=== PATIENT | male | born 1955 | race Hispanic/Latino ===

== ENCOUNTER → 2017-12-19 10:50 | Outpatient (CLI) | payer MEDICARE, MEDICAID, SELFPAY ==
--- NOTE | 2017-12-19 | DI.CT.S_ITS ---
PROCEDURE: CT CERVICAL SPINE WO CON INDICATIONS: CERVICALGIA TECHNIQUE: Noncontrast 3 mm thick sections acquired from the skull base to the T4 level. Sagittal and coronal reformats were then constructed. For radiation dose reduction, the following was used: automated exposure control, adjustment of mA and/or kV according to patient size. COMPARISON: [facility], CT, C-SPINE WITHOUT CONTRAST, 02/10/2008, 0:42. FINDINGS: Image quality: Excellent. Bones: Patient is status post interval anterior fusion from C4-C7 levels with intervertebral spacer placement. There is near complete bony fusion from C4-C7 levels. Straightening of normal cervical lordosis is seen. No acute compression fracture or traumatic spondylolisthesis. Minimal anterolisthesis of C7 on T1 is noted. Degenerative endplate changes are noted at C3-4 and C7-T1 levels. There is mild broad-based more right sided disc bulge at C7-T1 level causing mild central canal stenosis, no significant neural foramina narrowing. No significant canal stenosis is seen in rest of cervical spine. Bilateral facet hypertrophic changes are noted at C4-5 through C7-T1 levels causing right worse than left bilateral neural foramina narrowing at C5-6 and C6-7 levels. Soft tissues: Prevertebral soft tissues are normal in thickness. No paravertebral hematomas. No apical pneumothoraces. Right apical scarring is again seen. IMPRESSION: 1. Patient is status post anterior fusion of C4-C7 with near-complete bony fusion at these levels. Straightening of normal cervical lordosis. No acute compression fracture or traumatic spondylolisthesis. No gross hardware complication. 2. Degenerative disc disease at C3-4 and C7-T1 levels with suggestion of mild right-sided neural foraminal narrowing at C7-T1 level. 3. Bilateral facet hypertrophic changes at C4-5 through C7-T1 levels are seen with right worse than left bilateral neural foramina narrowing at C5-6 and C6-7 levels. Dictated by: Daljit Moran M.D. on 12/19/2017 at 17:01 Approved by: Daljit Moran M.D. on 12/19/2017 at 17:05
== END ==
PROVIDERS: Family Provider Family Medicine; PCP Family Medicine; Visit Provider Orthopaedic Surgery Orthopaedic Surgery of the Spine
DX: M50.31 Other cervical disc degeneration, high cervical region (principal); M48.02 Spinal stenosis, cervical region; Z98.1 Arthrodesis status
CPT/HCPCS: 72125

== ENCOUNTER 2018-02-04 16:52 | Emergency (ER) | payer MEDICARE, MEDICAID, SELFPAY ==
[2018-02-04 17:20] VITALS: BP 121/61; PULSE 80; RESP 20; TEMP 37.1; O2SAT 95
--- NOTE | 2018-02-04 17:32 | DI.RAD.S_ITS ---
PROCEDURE: XR CHEST 2V INDICATIONS: chest pain TECHNIQUE: 2 views of the chest were acquired. COMPARISON: [facility], CR, XR CHEST 1 VIEW, 02/01/2018, 11:01. FINDINGS: Surgical changes and devices: None. Lungs and pleura: No pleural effusions or pneumothorax. Lungs are clear but enlarged. Mediastinum: Mediastinal contours are normal. Heart size is normal. Bones and chest wall: No suspicious bony abnormalities. Soft tissues appear unremarkable. IMPRESSION: Normal for age except increased inspiratory volume and flattening of the diaphragms suggestive of COPD. Source of current symptoms is not seen. Dictated by: Giovanny Ceja M.D. on 02/04/2018 at 18:51 Approved by: Giovanny Ceja M.D. on 02/04/2018 at 18:51
[2018-02-04 19:04] LABS: Add Manual Diff / Slide Review NO; Eosinophils Percent Auto 3.6 % (2-4); Hematocrit 42.3 % (41-53); Hemoglobin 14.4 g/dL (13.5-17.5); Mean Corpuscular Hemoglobin 34.6 PG (26-34); Mean Corpuscular Volume 101.6 fL (80-100); Monocytes Percent Auto 8.3 % (3-14); Neutrophils Absolute Auto 4000 /uL (3000-5900); Neutrophils Percent Auto 48.1 % (50-75); Platelet Count 299 X10^3/uL (150-400); Red Blood Cell Count 4.17 X10^6/uL (4.5-5.9); Red Cell Distribution Width 14.8 % (11.6-14.8); White Blood Cell Count 8.4 X10^3/uL (4.5-11.0)
[2018-02-04 19:12] LABS: Alanine Aminotransferase 34 IU/L (21-72); Albumin Globulin Ratio 1.4 (1.0-2.8); Alkaline Phosphatase 72 U/L (38-126); Aspartate Aminotransferase 38 IU/L (17-59); BUN Creatinine Ratio 15.5 (6-22); Bilirubin Total 0.4 mg/dL (0.2-1.3); Blood Urea Nitrogen 17 mg/dL (9-20); Calcium 8.8 mg/dL (8.4-10.2); Carbon Dioxide 27 mmol/L (22-32); Chloride 98 mmol/L (98-107); Creatine Kinase 154 U/L (55-170); Estimated Glomerular Filt Rate > 60.0 mL/min (>60); Globulin 2.9 g/dL (1.7-4.1); Glucose 92 mg/dL (80-110); HEMOLYSIS < 15 (0-50); Lipase 206 U/L (23-300); Potassium 4.2 mmol/L (3.4-5.1); Sodium 139 mmol/L (137-145); Total Protein 6.9 g/dL (6.3-8.2)
[2018-02-04 19:23] LABS: Troponin I 0.015 ng/mL (0.01-0.034)
[2018-02-04 19:27] LABS: CKMB % Relative Index 0.4 % (1.5-5.0); Creatine Kinase MB 0.64 ng/mL (<2.37)
--- NOTE | 2018-02-04 19:49 | ED.CHESTPAIN ---
HPI - Chest Pain General Chief Complaint: Chest Pain Stated Complaint: HAD ALCOHOL CHEST PAIN Time Seen by Provider: 02/04/18 19:49 Related Data Home Medications Medication Instructions Recorded Confirmed hydrocodone-acetaminophen tab PO Q6HP PRN #0 11/17/16 lisinopril 10 mg PO QDAY #0 11/17/16 Previous Rx's Medication Instructions Recorded hydrocodone-acetaminophen [[place]] 1 tab PO Q6H PRN #10 tab 11/17/16 ciprofloxacin HCl [Cipro] 500 mg PO BID #20 tab 02/01/17 ketorolac 10 mg PO Q8HP PRN #8 tab 02/01/17 phenazopyridine [Pyridium] 200 mg PO TID #6 tab 02/01/17 Allergies Allergy/AdvReac Type Severity Reaction Status Date / Time acetaminophen [ACETAMINOPHEN] Allergy Mild ITCHING Unverified 07/20/17 12:11 lisinopril [LISINOPRIL] Allergy Unknown Unverified 07/20/17 12:11 cortisone [CORTISONE] AdvReac Intermediate MADE ME Unverified 07/20/17 12:11 VERY HOT AND MADE ME NUTS codeine [CODEINE] AdvReac Mild ITCHY AND Unverified 07/20/17 12:11 DIFFICULTY SLEEPING PFSH Surgical History History of spinal fusion (06/11/14) Status post discectomy (06/11/14) Exam Initial Vital Signs Initial Vital Signs: Vital Signs Temperature 98.7 F 02/04/18 17:20 Pulse Rate 80 02/04/18 17:20 Respiratory Rate 20 02/04/18 17:20 Blood Pressure 121/61 02/04/18 17:20 Pulse Oximetry 95 02/04/18 17:20 Course Orders Ordered: ED Orders 02/04/18 17:20 EKG-12 Lead Stat 02/04/18 17:32 Chest [XR chest 2V] Stat 02/04/18 18:32 Complete Blood Count AUTO DIFF Stat Comprehensive Metabolic Panel Stat Lipase Stat Troponin & CK Cardiac Panel Stat Vital Signs - 8 hr 02/04/18 17:20 Temperature 98.7 F Pulse Rate 80 Respiratory Rate 20 Blood Pressure 121/61 Pulse Oximetry 95 MDM - Chest Pain Lab Data Result diagrams: 02/04/18 18:32 02/04/18 18:32 Lab Results 10/27/18 10/27/18 Range/Units 18:32 18:32 WBC 8.4 (4.5-11.0) X10^3/uL RBC 4.17 L (4.5-5.9) X10^6/uL Hgb 14.4 (13.5-17.5) g/dL Hct 42.3 (41-53) % MCV 101.6 H (80-100) fL MCH 34.6 H (26-34) PG MCHC 34.0 (30-36) % RDW 14.8 (11.6-14.8) % Plt Count 299 (150-400) X10^3/uL Neut % (Auto) 48.1 L (50-75) % Lymph % (Auto) 39.0 (25-40) % Mccormick % (Auto) 8.3 (3-14) % Eos % (Auto) 3.6 (2-4) % Baso % (Auto) 1.0 (0-2) % Neut # (Auto) 4000 (2196-8877) /uL Sodium 139 (137-145) mmol/L Potassium 4.2 (3.4-5.1) mmol/L Chloride 98 (98-107) mmol/L Carbon Dioxide 27 (22-32) mmol/L BUN 17 (9-20) mg/dL Creatinine 1.10 (0.66-1.25) mg/dL Estimated GFR > 60.0 (>60) mL/min BUN/Creatinine Ratio 15.5 (6-22) Glucose 92 (80-110) mg/dL Calcium 8.8 (8.4-10.2) mg/dL Total Bilirubin 0.4 (0.2-1.3) mg/dL AST 38 (17-59) IU/L ALT 34 (21-72) IU/L Alkaline Phosphatase 72 (38-126) U/L Total Creatine Kinase 154 (55-170) U/L CK-MB (CK-2) 0.64 (<2.37) ng/mL CK-MB (CK-2) Rel Index 0.4 L (1.5-5.0) % Troponin I 0.015 (0.01-0.034) ng/mL Total Protein 6.9 (6.3-8.2) g/dL Albumin 4.0 (3.5-5.0) g/dL Globulin 2.9 (1.7-4.1) g/dL Albumin/Globulin Ratio 1.4 (1.0-2.8) Lipase 206 (23-300) U/L Discharge Plan Departure Prescriptions: No Action hydrocodone-acetaminophen [[place]] 5 MG/325 MG tablet 1 tab PO Q6H PRNQty: 10 RF: 0 lisinopril 10 MG tablet 10 mg PO QDAY Qty: 0 RF: 0 hydrocodone-acetaminophen 10 MG/325 MG tablet PO Q6HP PRNQty: 0 RF: 0 ciprofloxacin HCl [Cipro] 500 MG tablet 500 mg PO BID Qty: 20 RF: 0 phenazopyridine [Pyridium] 200 MG tablet 200 mg PO TID Qty: 6 RF: 0 ketorolac 10 MG tablet 10 mg PO Q8HP PRNQty: 8 RF: 0
== END 2018-02-04 19:50 | disposition left against medical advice (07) ==
PROVIDERS: Emergency Medicine; Emergency Provider Nurse Practitioner Family; Family Provider Family Medicine; PCP Family Medicine
DX: R07.89 Other chest pain (principal)
CPT/HCPCS: 36415; 71046; 80053; 82550; 82553; 83690; 84484; 85025; 93005; 93010; 99281; 99282

== ENCOUNTER 2018-02-06 21:20 | Emergency (ER) | payer MEDICARE, MEDICAID, SELFPAY ==
[2018-02-06 21:20] VITALS: BP 177/82; PULSE 60; RESP 18; TEMP 36.7; O2SAT 92
--- NOTE | 2018-02-06 21:24 | DI.CT.S_ITS ---
PROCEDURE: CT HEAD/BRAIN WO CON INDICATIONS: found unresponsive TECHNIQUE: Noncontrast 4.5 mm thick angled axial sections acquired from the foramen magnum to the vertex, with coronal and sagittal reformats. For radiation dose reduction, the following was used: automated exposure control, adjustment of mA and/or kV according to patient size. COMPARISON: None. FINDINGS: Image quality: Evaluation limited by motion artifact. CSF spaces: Basal cisterns are patent. No extra-axial fluid collections. Ventricles are normal in size and shape. Brain: No definite intracranial hemorrhage, mass, mass effect. Blankenship-white matter interface is grossly preserved. Skull and face: Calvarium and visualized facial bones are intact, without suspicious lesions. Sinuses: Visualized sinuses and mastoids are clear. IMPRESSION: 1. No definite acute intracranial abnormality with evaluation limited by motion artifact. Dictated by: Chepe Mcgee M.D. on 02/06/2018 at 22:07 Approved by: Chpee Mcgee M.D. on 02/06/2018 at 22:08
[2018-02-06 21:41] LABS: Add Manual Diff / Slide Review NO; Basophils Percent Auto 0.9 % (0-2); Eosinophils Percent Auto 4.7 % (2-4); Hematocrit 45.2 % (41-53); Hemoglobin 15.1 g/dL (13.5-17.5); Lymphocytes Percent Auto 45.5 % (25-40); Mean Corpuscular HGB Conc 33.5 % (30-36); Mean Corpuscular Hemoglobin 34.7 PG (26-34); Mean Corpuscular Volume 103.7 fL (80-100); Monocytes Percent Auto 4.6 % (3-14); Neutrophils Absolute Auto 4400 /uL (3000-5900); Neutrophils Percent Auto 44.3 % (50-75); Platelet Count 283 X10^3/uL (150-400); Red Blood Cell Count 4.36 X10^6/uL (4.5-5.9); Red Cell Distribution Width 15.4 % (11.6-14.8)
[2018-02-06 22:04] LABS: Acetaminophen < 10 ug/mL (10-30); Alanine Aminotransferase 34 IU/L (21-72); Albumin 4.1 g/dL (3.5-5.0); Albumin Globulin Ratio 1.3 (1.0-2.8); Alkaline Phosphatase 58 U/L (38-126); Aspartate Aminotransferase 70 IU/L (17-59); Bilirubin Total 0.6 mg/dL (0.2-1.3); Blood Urea Nitrogen 9 mg/dL (9-20); Calcium 8.2 mg/dL (8.4-10.2); Carbon Dioxide 25 mmol/L (22-32); Chloride 103 mmol/L (98-107); Creatine Kinase 216 U/L (55-170); Estimated Glomerular Filt Rate > 60.0 mL/min (>60); Globulin 3.1 g/dL (1.7-4.1); Glucose 105 mg/dL (80-110); HEMOLYSIS 46 (0-50); Potassium 4.5 mmol/L (3.4-5.1); Sodium 144 mmol/L (137-145); Total Protein 7.2 g/dL (6.3-8.2)
[2018-02-06 22:05] LABS: Salicylate < 1.0 mg/dL (<20)
[2018-02-06] MEDS: SODIUM CHLORIDE 0.9% 1,000 ML 150 ML IV (22:09)
[2018-02-06] MEDS: LORazepam 2 MG/ML SYRINGE 1 MG IV ×2 (22:10)
[2018-02-06] MEDS: diphenhydrAMINE 50 MG/ML VIAL IV (22:10)
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
[2018-02-06 22:12] LABS: Ethanol (ETOH) 348 mg/dL
[2018-02-06 22:15] LABS: Troponin I 0.017 ng/mL (0.01-0.034)
[2018-02-06 22:19] LABS: Urine Amphetamines Negative (Negative); Urine Barbiturates Negative (Negative); Urine Benzodiazepines Negative (Negative); Urine Cocaine Negative (Negative); Urine MDMA Negative (Negative); Urine Methadone Negative (Negative); Urine Methamphetamines Negative (Negative); Urine Morphine/Opi cutoff 2000 Negative (Negative); Urine Phencyclidine Negative (Negative); Urine Tetrahydrocannabinol Negative (Negative)
[2018-02-06 22:19] LABS: CKMB % Relative Index 0.6 % (1.5-5.0); Creatine Kinase MB 1.27 ng/mL (<2.37)
[2018-02-06 22:20] LABS: Urine Oxycodone Negative (Negative); Urine Tricyclic Antidepressant Negative (Negative)
[2018-02-06 22:44] VITALS: BP 155/79; PULSE 63; RESP 14; O2SAT 98
[2018-02-06 22:44] LABS: Lactate (Lactic Acid) 2.2 mmol/L (0.7-2.1)
[2018-02-06 23:30] VITALS: BP 139/66; PULSE 73; RESP 17; O2SAT 96
--- NOTE | 2018-02-06 23:40 | PC.NURSE ---
patient got out of bed and
[2018-02-06] MEDS: HALOPERIDOL 5 MG/ML VIAL 2 MG IV (23:47)
--- NOTE | 2018-02-06 23:47 | PC.NURSE ---
patient up and out of bed. not listening and cooperating. patient cleaned up from urinating on himself. TORO Gavin and Chris assisted the patient back to bed and patient given warm blankets. Dr. Heart aware.
[2018-02-07] VITALS (12 sets, daily range): BP systolic 109–130; BP diastolic 57–72; PULSE 59–74; RESP 10–17; TEMP 36.3; O2SAT 94–99
[2018-02-07 02:30] LABS: Reflexed Lactate in 2 Hours Y
[2018-02-07 02:59] LABS: Lactate 2HR (Lactic Acid Rflx) 1.8 mmol/L (0.7-2.1)
--- NOTE | 2018-02-07 03:43 | ED_ITS ---
HPI - Altered Mental Status <Etelvina Heart DO - Last Filed: 02/07/18 18:36> General Chief Complaint: Altered Mental Status Stated Complaint: ETOH Time Seen by Provider: 02/06/18 21:20 Source: patient, EMS and old records reviewed Mode of arrival: EMS Limitations: altered mental status History of Present Illness HPI narrative: Patient is a 62-year-old male who brought in by EMS for decreased responsiveness. He apparently started drinking alcohol very early in the morning he is unknown alcoholic. His he also ran out of his pain medications. Apparently they were initially thinking about intubating however he did get Narcan became more awake. Follows commands. Initially said he thought of killing himself although getting a true history from him is difficult. Now stating that he just wants to leave. MD complaint: decreased responsiveness and intoxication Related Data Home Medications Medication Instructions Recorded Confirmed lisinopril 1 tab PO DAILY 02/07/18 02/07/18 Allergies Allergy/AdvReac Type Severity Reaction Status Date / Time acetaminophen [ACETAMINOPHEN] Allergy Mild ITCHING Unverified 07/20/17 12:11 lisinopril [LISINOPRIL] Allergy Unknown Unverified 07/20/17 12:11 cortisone [CORTISONE] AdvReac Intermediate MADE ME Unverified 07/20/17 12:11 VERY HOT AND MADE ME NUTS codeine [CODEINE] AdvReac Mild ITCHY AND Unverified 07/20/17 12:11 DIFFICULTY SLEEPING Review of Systems <Etelvina Heart DO - Last Filed: 02/07/18 18:36> Review of Systems other ( intoxicated) Constitutional Denies body ache(s) and Denies fever(s) ENT Ears, Nose, Mouth, and Throat: Denies vertigo and Denies dizziness Cardiovascular Reports chest pain, Denies leg edema and Denies dyspnea on exertion Respiratory Denies cough and Denies dyspnea on exertion Gastrointestinal Gastrointestinal: Denies abdominal pain, Denies diarrhea and Denies nausea Musculoskeletal Denies back pain and Denies stiffness Integumentary/Breasts Reports wounds (on head- abrasion) Neurologic Denies vertigo and Denies dizziness Exam <Etelvina Heart DO - Last Filed: 02/07/18 18:36> Initial Vital Signs Initial Vital Signs: Vital Signs Temperature 98.1 F 02/06/18 21:20 Pulse Rate 60 02/06/18 21:20 Respiratory Rate 18 02/06/18 21:20 Blood Pressure 177/82 H 02/06/18 21:20 Pulse Oximetry 92 02/06/18 21:20 Const General: cooperative Nutritional Appearance: thin Orientation: alert and awake [facility] Head: abrasion (Left temporal no laceration) Eyes General: appearance normal, both eyes and all related structures Pupils: PERRL EOM: EOM intact bilaterally Neck Neck: normal visual inspection, full ROM, no meningeal signs and trachea midline Chest Chest: normal inspection of the chest, normal palpation of entire chest wall and No tenderness Resp Effort & Inspection: normal respiratory effort Auscultation: clear to auscultation bilaterally, no rales, no rhonchi and no wheezes Cardio Rate: regular rate Rhythm: regular rhythm Heart Sounds: S1 normal and S2 normal GI Inspection: normal to inspection Palpation: soft, No firm, No guarding and No tender Skin General: no rashes or lesions noted Trauma: abrasion (left temporal) Neuro General: alert and awake Cranial Nerves: CN's II-XI intact bilaterally Extrem General: normal to inspection Right upper extremity: normal to inspection Left upper extremity: normal to inspection Right lower extremity: normal to inspection Left lower extremity: normal to inspection <DO Kika Avalos Last Filed: 02/07/18 09:55> Initial Vital Signs Initial Vital Signs: Vital Signs Temperature 98.1 F 02/06/18 21:20 Pulse Rate 60 02/06/18 21:20 Respiratory Rate 18 02/06/18 21:20 Blood Pressure 177/82 H 02/06/18 21:20 Pulse Oximetry 92 02/06/18 21:20 Scores <DO Kika Wilks Last Filed: 02/07/18 18:36> GCS Amelia coma scale eye opening: Spontaneous Amelia coma scale verbal response: Orientated Amelia coma scale motor response: Obey commands Perry coma scale total score: 15 Course <DO Kika Wilks Last Filed: 02/07/18 18:36> Orders Ordered: Discontinued Medications Diphenhydramine HCl (Benadryl) 50 mg IV NOW ONE Stop: 02/06/18 22:01 Last Admin: 02/06/18 22:10 Dose: 50 mg Haloperidol (Haldol) 2 mg IV NOW ONE Stop: 02/06/18 22:02 Last Admin: 02/06/18 23:47 Dose: 2 mg Sodium Chloride (Normal Saline 0.9%) 1,000 mls @ 150 mls/hr IV CONT CARMELA Last Infusion: 02/07/18 05:05 Dose: 0 mls/hr Admin: 02/06/18 22:09 Dose: 150 mls/hr Lorazepam (Ativan) 1 mg IV NOW ONE Stop: 02/06/18 22:01 Last Admin: 02/06/18 22:10 Dose: 1 mg Lorazepam (Ativan) 1 mg IV NOW ONE Stop: 02/06/18 22:09 Last Admin: 02/06/18 22:10 Dose: 1 mg Vital Signs - 8 hr 02/07/18 02:00 02/07/18 03:21 02/07/18 04:30 Pulse Rate 64 65 65 Respiratory Rate 12 12 Blood Pressure [Right Arm] 109/66 130/61 130/66 Pulse Oximetry 99 99 02/07/18 05:00 02/07/18 06:04 02/07/18 06:50 Pulse Rate 64 59 L 61 Respiratory Rate 12 14 12 Blood Pressure [Right Arm] 122/64 123/65 124/72 Pulse Oximetry 99 94 02/07/18 07:33 02/07/18 08:11 Pulse Rate 62 74 Respiratory Rate 10 L 14 Blood Pressure [Right Arm] 118/65 121/64 Pulse Oximetry 95 97 <Yuval Henderson DO - Last Filed: 02/07/18 09:55> Orders Ordered: Discontinued Medications Diphenhydramine HCl (Benadryl) 50 mg IV NOW ONE Stop: 02/06/18 22:01 Last Admin: 02/06/18 22:10 Dose: 50 mg Haloperidol (Haldol) 2 mg IV NOW ONE Stop: 02/06/18 22:02 Last Admin: 02/06/18 23:47 Dose: 2 mg Sodium Chloride (Normal Saline 0.9%) 1,000 mls @ 150 mls/hr IV CONT CARMELA Last Infusion: 02/07/18 05:05 Dose: 0 mls/hr Admin: 02/06/18 22:09 Dose: 150 mls/hr Lorazepam (Ativan) 1 mg IV NOW ONE Stop: 02/06/18 22:01 Last Admin: 02/06/18 22:10 Dose: 1 mg Lorazepam (Ativan) 1 mg IV NOW ONE Stop: 02/06/18 22:09 Last Admin: 02/06/18 22:10 Dose: 1 mg Vital Signs - 8 hr 02/07/18 02:00 02/07/18 03:21 02/07/18 04:30 Pulse Rate 64 65 65 Respiratory Rate 12 12 Blood Pressure [Right Arm] 109/66 130/61 130/66 Pulse Oximetry 99 99 02/07/18 05:00 02/07/18 06:04 02/07/18 06:50 Pulse Rate 64 59 L 61 Respiratory Rate 12 14 12 Blood Pressure [Right Arm] 122/64 123/65 124/72 Pulse Oximetry 99 94 02/07/18 07:33 02/07/18 08:11 Pulse Rate 62 74 Respiratory Rate 10 L 14 Blood Pressure [Right Arm] 118/65 121/64 Pulse Oximetry 95 97 MDM - Altered Mental Status <Etelvina Heart DO - Last Filed: 02/07/18 18:36> Lab Data Attestation: I reviewed the patient's lab results. Result diagrams: 02/06/18 21:05 02/06/18 21:05 Lab Results 02/06/18 02/06/18 02/06/18 Range/Units 21:05 21:05 21:50 WBC 10.0 (4.5-11.0) X10^3/uL RBC 4.36 L (4.5-5.9) X10^6/uL Hgb 15.1 (13.5-17.5) g/dL Hct 45.2 (41-53) % MCV 103.7 H (80-100) fL MCH 34.7 H (26-34) PG MCHC 33.5 (30-36) % RDW 15.4 H (11.6-14.8) % Plt Count 283 (150-400) X10^3/uL Neut % (Auto) 44.3 L (50-75) % Lymph % (Auto) 45.5 H (25-40) % Craven % (Auto) 4.6 (3-14) % Eos % (Auto) 4.7 H (2-4) % Baso % (Auto) 0.9 (0-2) % Neut # (Auto) 4400 (4781-6547) /uL Sodium 144 (137-145) mmol/L Potassium 4.5 (3.4-5.1) mmol/L Chloride 103 (98-107) mmol/L Carbon Dioxide 25 (22-32) mmol/L BUN 9 (9-20) mg/dL Creatinine 0.90 (0.66-1.25) mg/dL Estimated GFR > 60.0 (>60) mL/min BUN/Creatinine Ratio 10.0 (6-22) Glucose 105 (80-110) mg/dL Lactate (0.7-2.1) mmol/L Calcium 8.2 L (8.4-10.2) mg/dL Total Bilirubin 0.6 (0.2-1.3) mg/dL AST 70 H (17-59) IU/L ALT 34 (21-72) IU/L Alkaline Phosphatase 58 (38-126) U/L Total Creatine Kinase 216 H (55-170) U/L CK-MB (CK-2) 1.27 (<2.37) ng/mL CK-MB (CK-2) Rel Index 0.6 L (1.5-5.0) % Troponin I 0.017 (0.01-0.034) ng/mL Total Protein 7.2 (6.3-8.2) g/dL Albumin 4.1 (3.5-5.0) g/dL Globulin 3.1 (1.7-4.1) g/dL Albumin/Globulin Ratio 1.3 (1.0-2.8) Salicylates < 1.0 (<20) mg/dL Urine Opiates Screen Negative (Negative) Ur Oxycodone Screen Negative (Negative) Urine Methadone Screen Negative (Negative) Acetaminophen < 10 L (10-30) ug/mL Ur Barbiturates Screen Negative (Negative) U Tricyclic Antidepress Negative (Negative) Ur Phencyclidine Scrn Negative (Negative) Ur Amphetamines Screen Negative (Negative) U Methamphetamines Scrn Negative (Negative) Ur MDMA Scrn (Ecstasy) Negative (Negative) U Benzodiazepines Scrn Negative (Negative) Urine Cocaine Screen Negative (Negative) U Marijuana (THC) Screen Negative (Negative) Ethyl Alcohol 348 mg/dL 02/06/18 02/07/18 Range/Units 21:54 02:42 WBC (4.5-11.0) X10^3/uL RBC (4.5-5.9) X10^6/uL Hgb (13.5-17.5) g/dL Hct (41-53) % MCV (80-100) fL MCH (26-34) PG MCHC (30-36) % RDW (11.6-14.8) % Plt Count (150-400) X10^3/uL Neut % (Auto) (50-75) % Lymph % (Auto) (25-40) % Craven % (Auto) (3-14) % Eos % (Auto) (2-4) % Baso % (Auto) (0-2) % Neut # (Auto) (0150-9363) /uL Sodium (137-145) mmol/L Potassium (3.4-5.1) mmol/L Chloride (98-107) mmol/L Carbon Dioxide (22-32) mmol/L BUN (9-20) mg/dL Creatinine (0.66-1.25) mg/dL Estimated GFR (>60) mL/min BUN/Creatinine Ratio (6-22) Glucose (80-110) mg/dL Lactate 2.2 H 1.8 (0.7-2.1) mmol/L Calcium (8.4-10.2) mg/dL Total Bilirubin (0.2-1.3) mg/dL AST (17-59) IU/L ALT (21-72) IU/L Alkaline Phosphatase (38-126) U/L Total Creatine Kinase (55-170) U/L CK-MB (CK-2) (<2.37) ng/mL CK-MB (CK-2) Rel Index (1.5-5.0) % Troponin I (0.01-0.034) ng/mL Total Protein (6.3-8.2) g/dL Albumin (3.5-5.0) g/dL Globulin (1.7-4.1) g/dL Albumin/Globulin Ratio (1.0-2.8) Salicylates (<20) mg/dL Urine Opiates Screen (Negative) Ur Oxycodone Screen (Negative) Urine Methadone Screen (Negative) Acetaminophen (10-30) ug/mL Ur Barbiturates Screen (Negative) U Tricyclic Antidepress (Negative) Ur Phencyclidine Scrn (Negative) Ur Amphetamines Screen (Negative) U Methamphetamines Scrn (Negative) Ur MDMA Scrn (Ecstasy) (Negative) U Benzodiazepines Scrn (Negative) Urine Cocaine Screen (Negative) U Marijuana (THC) Screen (Negative) Ethyl Alcohol mg/dL Imaging Data CT scan - head: Radiologist's impression: PROCEDURE: CT HEAD/BRAIN WO CON INDICATIONS: found unresponsive TECHNIQUE: Noncontrast 4.5 mm thick angled axial sections acquired from the foramen magnum to the vertex, with coronal and sagittal reformats. For radiation dose reduction, the following was used: automated exposure control, adjustment of mA and/or kV according to patient size. COMPARISON: None. FINDINGS: Image quality: Evaluation limited by motion artifact. CSF spaces: Basal cisterns are patent. No extra-axial fluid collections. Ventricles are normal in size and shape. Brain: No definite intracranial hemorrhage, mass, mass effect. Blankenship-white matter interface is grossly preserved. Skull and face: Calvarium and visualized facial bones are intact, without suspicious lesions. Sinuses: Visualized sinuses and mastoids are clear. IMPRESSION: 1. No definite acute intracranial abnormality with evaluation limited by motion artifact. Dictated by: Chepe Mcgee M.D. on 02/06/2018 at 22:07 ECG Data Attestation: I personally reviewed and interpreted this ECG as follows: Prior ECG tracings: available for review Interpretation: Sinus rhythm rate 60 ND interval 156, QRS 92, QTC 445 a similar to previous EKGs no acute ischemia or ST segment changes MDM Narrative Medical decision making narrative: Patient initially became quite agitated wanting to leave. He is not had his anxiety medicine a home gave him Ativan and Benadryl to help calm him down. Patient then later given Haldol at 11:30 a.m.. 4:00 a.m.. patient is sleeping comfortable patient is sleeping and resting has been fine since Haldol. Recommend repeat evaluation when more awake. Patient signed out to Dr. Henderson for further evaluation and medical decision making. anticipate DC home <Yuval Henderson, DO - Last Filed: 02/07/18 09:55> Lab Data Attestation: I reviewed the patient's lab results. Lab Results 02/06/18 02/06/18 02/06/18 Range/Units 21:05 21:05 21:50 WBC 10.0 (4.5-11.0) X10^3/uL RBC 4.36 L (4.5-5.9) X10^6/uL Hgb 15.1 (13.5-17.5) g/dL Hct 45.2 (41-53) % MCV 103.7 H (80-100) fL MCH 34.7 H (26-34) PG MCHC 33.5 (30-36) % RDW 15.4 H (11.6-14.8) % Plt Count 283 (150-400) X10^3/uL Neut % (Auto) 44.3 L (50-75) % Lymph % (Auto) 45.5 H (25-40) % Craven % (Auto) 4.6 (3-14) % Eos % (Auto) 4.7 H (2-4) % Baso % (Auto) 0.9 (0-2) % Neut # (Auto) 4400 (9722-1103) /uL Sodium 144 (137-145) mmol/L Potassium 4.5 (3.4-5.1) mmol/L Chloride 103 (98-107) mmol/L Carbon Dioxide 25 (22-32) mmol/L BUN 9 (9-20) mg/dL Creatinine 0.90 (0.66-1.25) mg/dL Estimated GFR > 60.0 (>60) mL/min BUN/Creatinine Ratio 10.0 (6-22) Glucose 105 (80-110) mg/dL Lactate (0.7-2.1) mmol/L Calcium 8.2 L (8.4-10.2) mg/dL Total Bilirubin 0.6 (0.2-1.3) mg/dL AST 70 H (17-59) IU/L ALT 34 (21-72) IU/L Alkaline Phosphatase 58 (38-126) U/L Total Creatine Kinase 216 H (55-170) U/L CK-MB (CK-2) 1.27 (<2.37) ng/mL CK-MB (CK-2) Rel Index 0.6 L (1.5-5.0) % Troponin I 0.017 (0.01-0.034) ng/mL Total Protein 7.2 (6.3-8.2) g/dL Albumin 4.1 (3.5-5.0) g/dL Globulin 3.1 (1.7-4.1) g/dL Albumin/Globulin Ratio 1.3 (1.0-2.8) Salicylates < 1.0 (<20) mg/dL Urine Opiates Screen Negative (Negative) Ur Oxycodone Screen Negative (Negative) Urine Methadone Screen Negative (Negative) Acetaminophen < 10 L (10-30) ug/mL Ur Barbiturates Screen Negative (Negative) U Tricyclic Antidepress Negative (Negative) Ur Phencyclidine Scrn Negative (Negative) Ur Amphetamines Screen Negative (Negative) U Methamphetamines Scrn Negative (Negative) Ur MDMA Scrn (Ecstasy) Negative (Negative) U Benzodiazepines Scrn Negative (Negative) Urine Cocaine Screen Negative (Negative) U Marijuana (THC) Screen Negative (Negative) Ethyl Alcohol 348 mg/dL 02/06/18 02/07/18 Range/Units 21:54 02:42 WBC (4.5-11.0) X10^3/uL RBC (4.5-5.9) X10^6/uL Hgb (13.5-17.5) g/dL Hct (41-53) % MCV (80-100) fL MCH (26-34) PG MCHC (30-36) % RDW (11.6-14.8) % Plt Count (150-400) X10^3/uL Neut % (Auto) (50-75) % Lymph % (Auto) (25-40) % Craven % (Auto) (3-14) % Eos % (Auto) (2-4) % Baso % (Auto) (0-2) % Neut # (Auto) (9451-5091) /uL Sodium (137-145) mmol/L Potassium (3.4-5.1) mmol/L Chloride (98-107) mmol/L Carbon Dioxide (22-32) mmol/L BUN (9-20) mg/dL Creatinine (0.66-1.25) mg/dL Estimated GFR (>60) mL/min BUN/Creatinine Ratio (6-22) Glucose (80-110) mg/dL Lactate 2.2 H 1.8 (0.7-2.1) mmol/L Calcium (8.4-10.2) mg/dL Total Bilirubin (0.2-1.3) mg/dL AST (17-59) IU/L ALT (21-72) IU/L Alkaline Phosphatase (38-126) U/L Total Creatine Kinase (55-170) U/L CK-MB (CK-2) (<2.37) ng/mL CK-MB (CK-2) Rel Index (1.5-5.0) % Troponin I (0.01-0.034) ng/mL Total Protein (6.3-8.2) g/dL Albumin (3.5-5.0) g/dL Globulin (1.7-4.1) g/dL Albumin/Globulin Ratio (1.0-2.8) Salicylates (<20) mg/dL Urine Opiates Screen (Negative) Ur Oxycodone Screen (Negative) Urine Methadone Screen (Negative) Acetaminophen (10-30) ug/mL Ur Barbiturates Screen (Negative) U Tricyclic Antidepress (Negative) Ur Phencyclidine Scrn (Negative) Ur Amphetamines Screen (Negative) U Methamphetamines Scrn (Negative) Ur MDMA Scrn (Ecstasy) (Negative) U Benzodiazepines Scrn (Negative) Urine Cocaine Screen (Negative) U Marijuana (THC) Screen (Negative) Ethyl Alcohol mg/dL Imaging Data Chest x-ray: Radiologist's impression: PROCEDURE: XR CHEST 1V INDICATIONS: Left-sided chest pain TECHNIQUE: One view of the chest was acquired. COMPARISON: [facility], CR, XR CHEST 1 VIEW, 02/01/2018, 11:01. [facility], CR, XR CHEST 2V, 02/04/2018, 17:06. FINDINGS: Surgical changes and devices: Lower cervical spine fusion is partially visualized. Lungs and pleura: Mild right basilar infiltrate. No pleural effusions or pneumothorax. Mediastinum: Mediastinal contours appear normal. Heart size is normal. Bones and chest wall: No suspicious bony lesions. Overlying soft tissues appear unremarkable. IMPRESSION: Mild right basilar infiltrate could represent early pneumonia. Recommend clinical correlation. Dictated by: Jammie Oliveros M.D. on 02/07/2018 at 8:46 Approved by: Jammie Oliveros M.D. on 02/07/2018 at 8:50 ECG Data Attestation: I personally reviewed and interpreted this ECG as follows: Prior ECG tracings: not available for review Interpretation: sinus bradycardia ventricular rate of 56 Normal axis Normal QRS normal QTC No ST T wave changes MDM Narrative Medical decision making narrative: received turned over from night provider. Reviewed patient's history and physical. Patient did wake up this morning. He ate breakfast. He ambulated to the bathroom without any problems. Was standing without any problems. Clinically was no longer intoxicated. He was alert and oriented x3. Complained of left-sided chest pain for which I ordered a chest x-ray which was unremarkable and an EKG which was unremarkable. Patient had a negative troponin earlier in the evening. I was able to review some prior notes from the patient from the primary doctor who stated that he does have chronic pain. The patient states that he does have a pain management provider. He states that he is out of his oxycodone and wanted me to refill his medication. 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 He stated that he had an appointment today at 11 o'clock with his primary doctor. We did contact his primary doctor to inform them that he was here in the emergency department. I feel that the patient is safe to be discharged. He is no longer suicidal. He was given return precautions. Discharge Plan Departure Patient Disposition: Home Clinical Impression: Alcohol intoxication Discharge Date/Time: 02/07/18 10:00 Interventions: ED Discharge Assessment Last Done: 02/07/18 10:00 Instructions: DI for Alcohol Poisoning Activity Restrictions/Additional Instructions: *You have been diagnosed with alcohol intoxication *Continue to take medications as directed *Follow up with your primary care provider in 2-3 days *Return to ER if you should have any new, worsening or concerning symptoms Prescriptions: No Action lisinopril 20 mg tablet 1 tab PO DAILY RF: 0
--- NOTE | 2018-02-07 08:24 | DI.RAD.S_ITS ---
PROCEDURE: XR CHEST 1V INDICATIONS: Left-sided chest pain TECHNIQUE: One view of the chest was acquired. COMPARISON: [facility], CR, XR CHEST 1 VIEW, 02/01/2018, 11:01. [facility], CR, XR CHEST 2V, 02/04/2018, 17:06. FINDINGS: Surgical changes and devices: Lower cervical spine fusion is partially visualized. Lungs and pleura: Mild right basilar infiltrate. No pleural effusions or pneumothorax. Mediastinum: Mediastinal contours appear normal. Heart size is normal. Bones and chest wall: No suspicious bony lesions. Overlying soft tissues appear unremarkable. IMPRESSION: Mild right basilar infiltrate could represent early pneumonia. Recommend clinical correlation. Dictated by: Jammie Oliveros M.D. on 02/07/2018 at 8:46 Approved by: Jammie Oliveros M.D. on 02/07/2018 at 8:50
== END 2018-02-07 10:00 | disposition home or self-care (01) ==
PROVIDERS: Emergency Medicine; Emergency Provider Emergency Medicine; Family Provider Family Medicine; PCP Family Medicine
DX: F10.929 Alcohol use, unspecified with intoxication, unspecified (principal); R41.89 Other symptoms and signs involving cognitive functions and awareness
CPT/HCPCS: 36415; 36591; 70450; 71045; 80053; 80305; 80320; 80329; 82550; 82553; 83605; 84484; 85025; 93005; 96361; 96374; 96375; 99285; G0480; J1200; J1630; J2060

== ENCOUNTER 2018-02-12 13:17 | Emergency (ER) | payer MEDICARE, MEDICAID, SELFPAY ==
[2018-02-12 13:13] VITALS: BP 148/91; PULSE 84; RESP 16; TEMP 36.8; O2SAT 99
--- NOTE | 2018-02-12 13:25 | ED_ITS ---
HPI - Alcohol General Chief Complaint: Toxicology Problem Stated Complaint: ETOH Time Seen by Provider: 02/12/18 13:20 Source: patient and EMS Mode of arrival: EMS Limitations: no limitations History of Present Illness HPI narrative: Patient is a 62-year-old male who presents with alcohol intoxication. He is a known alcoholic. He was seen evaluated here 02/06/2018 for the same. He is brought in because he cannot walk. No sign of trauma. He is awake and alert is but intoxicated. MD complaint: alcohol intoxication Related Data Home Medications Medication Instructions Recorded Confirmed lisinopril 1 tab PO DAILY 02/07/18 02/07/18 Allergies Allergy/AdvReac Type Severity Reaction Status Date / Time acetaminophen [ACETAMINOPHEN] Allergy Mild ITCHING Unverified 07/20/17 12:11 lisinopril [LISINOPRIL] Allergy Unknown Unverified 07/20/17 12:11 cortisone [CORTISONE] AdvReac Intermediate MADE ME Unverified 07/20/17 12:11 VERY HOT AND MADE ME NUTS codeine [CODEINE] AdvReac Mild ITCHY AND Unverified 07/20/17 12:11 DIFFICULTY SLEEPING Review of Systems Review of Systems All systems reviewed & are unremarkable except as noted in HPI and below Constitutional Denies chills, Denies fever(s), Denies lethargy and Denies weakness Eyes Denies blurry vision and Denies change in vision Cardiovascular Reports chest pain (Left-sided) and Denies dyspnea Respiratory Denies cough and Denies dyspnea Gastrointestinal Gastrointestinal: Denies diarrhea, Denies nausea and Denies vomiting Musculoskeletal Denies back pain, Denies muscle weakness, Denies numbness and Denies tingling Integumentary/Breasts Denies rash Neurologic Denies numbness, Denies tingling and Denies weakness [facility] Surgical History History of spinal fusion (06/11/14) Status post discectomy (06/11/14) Social History Smoking Status: Unknown if ever smoked Exam Initial Vital Signs Initial Vital Signs: Vital Signs Temperature 98.3 F 02/12/18 13:13 Pulse Rate 84 02/12/18 13:13 Respiratory Rate 16 02/12/18 13:13 Blood Pressure 148/91 H 02/12/18 13:13 Pulse Oximetry 99 02/12/18 13:13 GENERAL: Awake alert slurring of speech intoxicated no sign of trauma, disheveled HEENT: Head atraumatic,EOMI, pupils reactive, face symmetric, neck is supple CARDIOVASCULAR: Regular rate and rhythm without murmurs, rubs or gallops. RESPIRATORY: Breath sounds equal bilaterally, no wheezes rales or rhonchi. ABDOMEN: Soft, nontender. Normoactive bowel sounds all 4 quadrants. No guarding or rebound. EXTREMITIES: Normal range of motion, no clubbing or edema. Neurovascularly intact NEUROLOGICAL: Alert and oriented x4.Normal gait and speech. Cranial nerves II through XII grossly intact. SKIN: Warm, dry, no laceration, no petechiae, no rashes or lesions. Course Orders Ordered: ED Orders 02/12/18 13:55 Acetaminophen Stat Complete Blood Count AUTO DIFF Stat Comprehensive Metabolic Panel Stat Ethanol (ETOH) Stat Salicylate Stat 02/12/18 14:18 EKG-12 Lead Stat Discontinued Medications Sodium Chloride (Normal Saline 0.9%) 1,000 mls @ 1,000 mls/hr IV BOLUS ONE Stop: 02/12/18 14:19 Last Admin: 02/12/18 14:29 Dose: Not Given Vital Signs - 8 hr 02/12/18 13:13 Temperature 98.3 F Pulse Rate 84 Respiratory Rate 16 Blood Pressure 148/91 H Pulse Oximetry 99 MDM - Alcohol Lab Data Attestation: I reviewed the patient's lab results. Result diagrams: 02/12/18 13:55 02/12/18 13:55 Labs: Lab Results 02/12/18 02/12/18 Range/Units 13:55 13:55 WBC 9.1 (4.5-11.0) X10^3/uL RBC 4.43 L (4.5-5.9) X10^6/uL Hgb 15.4 (13.5-17.5) g/dL Hct 45.7 (41-53) % MCV 103.1 H (80-100) fL MCH 34.9 H (26-34) PG MCHC 33.8 (30-36) % RDW 15.0 H (11.6-14.8) % Plt Count 226 (150-400) X10^3/uL Neut % (Auto) 56.6 (50-75) % Lymph % (Auto) 36.5 (25-40) % [place] % (Auto) 5.0 (3-14) % Eos % (Auto) 1.0 L (2-4) % Baso % (Auto) 0.9 (0-2) % Neut # (Auto) 5100 (0334-0576) /uL Sodium 139 (137-145) mmol/L Potassium 4.1 (3.4-5.1) mmol/L Chloride 99 (98-107) mmol/L Carbon Dioxide 22 (22-32) mmol/L BUN 12 (9-20) mg/dL Creatinine 0.90 (0.66-1.25) mg/dL Estimated GFR > 60.0 (>60) mL/min BUN/Creatinine Ratio 13.3 (6-22) Glucose 102 (80-110) mg/dL Calcium 8.2 L (8.4-10.2) mg/dL Total Bilirubin 0.4 (0.2-1.3) mg/dL AST 279 H (17-59) IU/L ALT 97 H (21-72) IU/L Alkaline Phosphatase 80 (38-126) U/L Total Protein 7.4 (6.3-8.2) g/dL Albumin 4.2 (3.5-5.0) g/dL Globulin 3.2 (1.7-4.1) g/dL Albumin/Globulin Ratio 1.3 (1.0-2.8) Salicylates < 1.0 (<20) mg/dL Acetaminophen < 10 L (10-30) ug/mL Ethyl Alcohol 352 mg/dL ECG Data Attestation: I personally reviewed and interpreted this ECG as follows: Prior ECG tracings: available for review Interpretation: Sinus rhythm rate [address] changes Q-waves noted in lead 3 similar to previous EKGs ND interval 150 QRS 110 QTC 420 MDM Narrative Medical decision making narrative: The patient sleeping resting comfortably. 5:00 p.m. the patient begins waking up awake alert getting dressed wanting to go home. He has a steady gait. We have called his roommate who is coming to pick him. Patient has complained of left chest pain in the past no EKG changes. Now awake no longer having chest pain. His roomate is here to pick him up. Discharge Plan Departure Patient Disposition: Home Clinical Impression: Alcohol intoxication Discharge Date/Time: 02/12/18 17:21 Interventions: ED Discharge Assessment Last Done: 02/12/18 17:19 Instructions: DI for Alcohol Abuse Activity Restrictions/Additional Instructions: *You have been diagnosed with alcohol intoxication *What to do: Recommend rehab *Continue to take medications as directed *Follow up with your primary care provider in 2-3 days *Return to ER if you should have any new, worsening or concerning symptoms Prescriptions: No Action lisinopril 20 mg tablet 1 tab PO DAILY RF: 0 Referrals: Aneudy Elias MD [Primary Care Provider] -
[2018-02-12 14:07] LABS: Add Manual Diff / Slide Review NO; Basophils Percent Auto 0.9 % (0-2); Hematocrit 45.7 % (41-53); Hemoglobin 15.4 g/dL (13.5-17.5); Lymphocytes Percent Auto 36.5 % (25-40); Mean Corpuscular HGB Conc 33.8 % (30-36); Mean Corpuscular Hemoglobin 34.9 PG (26-34); Mean Corpuscular Volume 103.1 fL (80-100); Neutrophils Absolute Auto 5100 /uL (3000-5900); Neutrophils Percent Auto 56.6 % (50-75); Platelet Count 226 X10^3/uL (150-400); Red Blood Cell Count 4.43 X10^6/uL (4.5-5.9); White Blood Cell Count 9.1 X10^3/uL (4.5-11.0)
[2018-02-12 14:16] LABS: Acetaminophen < 10 ug/mL (10-30); Alanine Aminotransferase 97 IU/L (21-72); Albumin 4.2 g/dL (3.5-5.0); Albumin Globulin Ratio 1.3 (1.0-2.8); Alkaline Phosphatase 80 U/L (38-126); Aspartate Aminotransferase 279 IU/L (17-59); BUN Creatinine Ratio 13.3 (6-22); Bilirubin Total 0.4 mg/dL (0.2-1.3); Blood Urea Nitrogen 12 mg/dL (9-20); Calcium 8.2 mg/dL (8.4-10.2); Carbon Dioxide 22 mmol/L (22-32); Chloride 99 mmol/L (98-107); Estimated Glomerular Filt Rate > 60.0 mL/min (>60); Globulin 3.2 g/dL (1.7-4.1); Glucose 102 mg/dL (80-110); HEMOLYSIS < 15 (0-50); Potassium 4.1 mmol/L (3.4-5.1); Sodium 139 mmol/L (137-145); Total Protein 7.4 g/dL (6.3-8.2)
[2018-02-12 14:18] LABS: Salicylate < 1.0 mg/dL (<20)
--- NOTE | 2018-02-12 14:18 | PC.NURSE ---
Pt is uncooperative and speaking loudly. Does not comply with medical care or follow directions. Pt frequently says I'm leaving pt does not walk on his own but attempts to scoot or crawl out the door. Requires constant redirection. Pt c/o left sided cp states it has been there a long time. Verbal order for EKG obtained. Pt does not thouroughly answer questions and repeatedly states he wants to leave and wants to go home to . Informed pt that we need to help him and have him sober up before he can leave. pt has dried blood on nose and cheek from apparent bloody nose. Pt states he has hx of frequent falls and has skin tears on both forarms. Pt frequently declines to comply with care but frequently asks for something for pain. Dr. Heart aware and no new orders at this time. 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
[2018-02-12 14:24] LABS: Ethanol (ETOH) 352 mg/dL
--- NOTE | 2018-02-12 15:12 | PC.NURSE ---
Pt is asleep on mattress on floor. Respirations even and nonlabored. no signs of distress noted. Lights are dimmed for comfort and door remains open and visible from nursing station.
--- NOTE | 2018-02-12 17:14 | PC.NURSE ---
at 1645 Pt awoke from sleep. [place] Pt getting through belongings. Pt got dressed, TAN Caraballo and I Removed cigarettes and aurist after telling pt he cannot smoke on hospital property. Kye attempts to leave. Pt is ambulatory with steady gait and denies being drunk. Friend Rishabh called to pick pt up. Per provider okay, pt is released to care of Rishabh. Pt states he is just going to go home and drink some more. Upon Rishabh's arrival, cigarettes and aurist returned to pt.
== END 2018-02-12 17:21 | disposition home or self-care (01) ==
PROVIDERS: Emergency Provider Emergency Medicine; Family Provider Family Medicine; PCP Family Medicine
DX: F10.929 Alcohol use, unspecified with intoxication, unspecified (principal); R07.9 Chest pain, unspecified
CPT/HCPCS: 36415; 80053; 80320; 80329; 85025; 93005; 99282; 99284; G0480

== ENCOUNTER 2018-03-11 04:12 | Emergency (ER) | payer MEDICARE, MEDICAID, SELFPAY ==
[2018-03-11 04:23] VITALS: BP 173/79; PULSE 91; RESP 18; TEMP 36.7; O2SAT 100; BMI 20.1
[2018-03-11 04:46] LABS: Add Manual Diff / Slide Review NO; Basophils Percent Auto 0.9 % (0-2); Hematocrit 39.4 % (41-53); Hemoglobin 13.8 g/dL (13.5-17.5); Lymphocytes Percent Auto 39.2 % (25-40); Mean Corpuscular HGB Conc 34.9 % (30-36); Mean Corpuscular Hemoglobin 35.7 PG (26-34); Mean Corpuscular Volume 102.1 fL (80-100); Monocytes Percent Auto 7.4 % (3-14); Neutrophils Absolute Auto 4100 /uL (3000-5900); Neutrophils Percent Auto 48.5 % (50-75); Platelet Count 277 X10^3/uL (150-400); Red Blood Cell Count 3.86 X10^6/uL (4.5-5.9); Red Cell Distribution Width 15.1 % (11.6-14.8); White Blood Cell Count 8.5 X10^3/uL (4.5-11.0)
[2018-03-11] MEDS: PANTOPRAZOLE 40 MG VIAL IV (04:49)
[2018-03-11] MEDS: SODIUM CHLORIDE 0.9% 1,000 ML 1000 ML IV (04:49)
[2018-03-11] MEDS: LORazepam 2 MG/ML SYRINGE 1 MG IV (04:49)
[2018-03-11] MEDS: ONDANSETRON 4 MG/2 ML INJ IV (04:49)
[2018-03-11 04:57] LABS: Alanine Aminotransferase 56 IU/L (21-72); Albumin 4.2 g/dL (3.5-5.0); Albumin Globulin Ratio 1.3 (1.0-2.8); Alkaline Phosphatase 90 U/L (38-126); Aspartate Aminotransferase 126 IU/L (17-59); Bilirubin Total 1.7 mg/dL (0.2-1.3); Blood Urea Nitrogen 13 mg/dL (9-20); Calcium 9.1 mg/dL (8.4-10.2); Carbon Dioxide 28 mmol/L (22-32); Chloride 95 mmol/L (98-107); Estimated Glomerular Filt Rate > 60.0 mL/min (>60); Globulin 3.3 g/dL (1.7-4.1); Glucose 138 mg/dL (80-110); HEMOLYSIS < 15 (0-50); Lipase 75 U/L (23-300); Sodium 135 mmol/L (137-145); Total Protein 7.5 g/dL (6.3-8.2)
--- NOTE | 2018-03-11 05:04 | ED_ITS ---
HPI - Abdominal Pain General Chief Complaint: Abdominal Pain Stated Complaint: stomach pain x7 days Time Seen by Provider: 03/11/18 04:28 Source: patient Mode of arrival: ambulatory Limitations: no limitations History of Present Illness HPI narrative: patient is a 62-year-old male who is well known to me presenting with abdominal pain. He is a known alcoholic stating that his last drink was yesterday. He is noted to be shaking. He says he has mid periumbilical abdominal pain no nausea or vomiting. He has not had any fevers. MD complaint: abdominal pain Pain Consistency: intermittent Location: epigastric Severity: moderate Quality: cramping Radiation: none Migration to: no migration Relieving factors: nothing Exacerbating factors: nothing Related Data Home Medications Medication Instructions Recorded Confirmed lisinopril 1 tab PO DAILY 02/07/18 02/07/18 Previous Rx's Medication Instructions Recorded omeprazole 40 mg PO DAILY #20 cap 03/11/18 Allergies Allergy/AdvReac Type Severity Reaction Status Date / Time acetaminophen [ACETAMINOPHEN] Allergy Mild ITCHING Unverified 03/11/18 04:42 lisinopril [LISINOPRIL] Allergy Unknown Unverified 03/11/18 04:42 cortisone [CORTISONE] AdvReac Intermediate MADE ME Unverified 03/11/18 04:42 VERY HOT AND MADE ME NUTS codeine [CODEINE] AdvReac Mild ITCHY AND Unverified 03/11/18 04:42 DIFFICULTY SLEEPING Review of Systems Review of Systems All systems reviewed & are unremarkable except as noted in HPI and below Constitutional Denies chills, Denies fever(s), Denies lethargy and Denies weakness Cardiovascular Denies chest pain, Denies irregular heart rhythm, Denies lightheadedness, Denies palpitations, Denies dyspnea, Denies dyspnea on exertion and Denies orthopnea Respiratory Denies cough, Denies dyspnea, Denies dyspnea on exertion and Denies wheezing Gastrointestinal Gastrointestinal: Reports as per HPI and Reports abdominal pain Genitourinary Denies hematuria, Denies flank pain, Denies urinary incontinence and Denies urinary urgency Musculoskeletal Denies back pain, Denies muscle weakness, Denies numbness and Denies tingling Integumentary/Breasts Denies pruritus, Denies erythema, Denies rash and Denies wounds Neurologic Denies numbness, Denies tingling and Denies weakness Endocrine Denies palpitations Allergic/Immunologic Denies wheezing PFSH Medical History Alcoholism (Acute) Surgical History History of spinal fusion (06/11/14) Status post discectomy (06/11/14) Social History Smoking Status: Unknown if ever smoked alcohol intake: current Exam Initial Vital Signs Initial Vital Signs: Vital Signs Temperature 98.1 F 03/11/18 04:23 Pulse Rate 91 H 03/11/18 04:23 Respiratory Rate 18 03/11/18 04:23 Blood Pressure 173/79 H 03/11/18 04:23 Pulse Oximetry 100 03/11/18 04:23 GENERAL alert cooperative elderly male HEENT: Head atraumatic,EOMI, pupils reactive, CARDIOVASCULAR: Regular rate and rhythm without murmurs, rubs or gallops. RESPIRATORY: Breath sounds equal bilaterally, no wheezes rales or rhonchi. ABDOMEN: Soft, mid abdominal pain no distension no guarding or rebound no right upper quadrant pain : No CVA tenderness EXTREMITIES: Normal range of motion, no clubbing or edema. Neurovascularly intact NEUROLOGICAL: Alert and oriented x4. Clear speech, steady gait tremors noted SKIN: Warm, dry, no laceration, no petechiae, no rashes or lesions. Course Orders Ordered: ED Orders 03/11/18 04:35 Complete Blood Count AUTO DIFF Stat Comprehensive Metabolic Panel Stat Lipase Stat Sodium Chloride (Normal Saline 0.9%) 1,000 mls @ 1,000 mls/hr IV CONT CARMELA Last Admin: 03/11/18 04:49 Dose: 1,000 mls/hr Discontinued Medications Al Hydrox/Mg Hydrox/Simethicone 20 ml/ Lidocaine HCl 15 ml 0 ml PO NOW ONE Stop: 03/11/18 05:12 Last Admin: 03/11/18 05:17 Dose: 35 ml Lorazepam (Ativan) 1 mg IV NOW ONE Stop: 03/11/18 04:34 Last Admin: 03/11/18 04:49 Dose: 1 mg Ondansetron HCl (Zofran) 4 mg IV NOW ONE Stop: 03/11/18 04:33 Last Admin: 03/11/18 04:49 Dose: 4 mg Pantoprazole Sodium (Protonix) 40 mg IV NOW ONE Stop: 03/11/18 04:33 Last Admin: 03/11/18 04:49 Dose: 40 mg Vital Signs - 8 hr 03/11/18 04:23 03/11/18 05:12 03/11/18 05:43 Temperature 98.1 F Pulse Rate 91 H 68 58 L Respiratory Rate 18 18 18 Blood Pressure 173/79 H Blood Pressure [Left Arm] 135/86 144/57 H Pulse Oximetry 100 98 96 MDM - Abdominal Pain Lab Data Attestation: I reviewed the patient's lab results. Result diagrams: 03/11/18 04:35 03/11/18 04:35 Lab Results 03/11/18 03/11/18 Range/Units 04:35 04:35 WBC 8.5 (4.5-11.0) X10^3/uL RBC 3.86 L (4.5-5.9) X10^6/uL Hgb 13.8 (13.5-17.5) g/dL Hct 39.4 L (41-53) % MCV 102.1 H (80-100) fL MCH 35.7 H (26-34) PG MCHC 34.9 (30-36) % RDW 15.1 H (11.6-14.8) % Plt Count 277 (150-400) X10^3/uL Neut % (Auto) 48.5 L (50-75) % Lymph % (Auto) 39.2 (25-40) % [place] % (Auto) 7.4 (3-14) % Eos % (Auto) 4.0 (2-4) % Baso % (Auto) 0.9 (0-2) % Neut # (Auto) 4100 (5801-5940) /uL Sodium 135 L (137-145) mmol/L Potassium 3.0 L (3.4-5.1) mmol/L Chloride 95 L (98-107) mmol/L Carbon Dioxide 28 (22-32) mmol/L BUN 13 (9-20) mg/dL Creatinine 1.00 (0.66-1.25) mg/dL Estimated GFR > 60.0 (>60) mL/min BUN/Creatinine Ratio 13.0 (6-22) Glucose 138 H (80-110) mg/dL Calcium 9.1 (8.4-10.2) mg/dL Total Bilirubin 1.7 H (0.2-1.3) mg/dL AST 126 H (17-59) IU/L ALT 56 (21-72) IU/L Alkaline Phosphatase 90 (38-126) U/L Total Protein 7.5 (6.3-8.2) g/dL Albumin 4.2 (3.5-5.0) g/dL Globulin 3.3 (1.7-4.1) g/dL Albumin/Globulin Ratio 1.3 (1.0-2.8) Lipase 75 (23-300) U/L MDM Narrative Medical decision making narrative: Patient's bilirubin is minimally elevated. He has no right upper quadrant pain. GI cocktail seemed to help. Patient overall feeling better. Discharge Plan Departure Patient Disposition: Home Clinical Impression: Abdominal pain, Gastritis Instructions: DI for Abdominal Pain-Adult Activity Restrictions/Additional Instructions: *You have been diagnosed with gastritis *What to do: Stop drinking alcohol *Continue to take medications as directed Omeprazole once a day *Follow up with your primary care provider in 2-3 days *Return to ER if you should have any new, worsening or concerning symptoms Prescriptions: New omeprazole 40 mg capsule,delayed release(DR/EC) 40 mg PO DAILY Qty: 20 RF: 0 No Action lisinopril 20 mg tablet 1 tab PO DAILY RF: 0 Referrals: [facility] [Provider Group] [facility] [Provider Group] [facility] [Provider Group] [facility] [Provider Group] [facility] [Outside] Aneudy Elias MD [Primary Care Provider] -
[2018-03-11 05:12] VITALS: BP 135/86; PULSE 68; RESP 18; O2SAT 98
[2018-03-11] MEDS: MAG HYDROX/ALUMINUM/SIMETH SUS 20 ML, LIDOCAINE VISCOUS 2% 15 ML PO (05:17)
[2018-03-11 05:43] VITALS: BP 144/57; PULSE 58; RESP 18; O2SAT 96
== END 2018-03-11 05:52 | disposition home or self-care (01) ==
PROVIDERS: Emergency Provider Emergency Medicine; Family Provider Family Medicine; PCP Family Medicine
DX: K29.70 Gastritis, unspecified, without bleeding (principal)
CPT/HCPCS: 36591; 80053; 83690; 85025; 96361; 96374; 96375; 99283; 99284; C9113; J2060; J2405

== ENCOUNTER 2018-03-15 17:07 | Emergency (ER) | payer MEDICARE, MEDICAID, SELFPAY ==
[2018-03-15 17:17] VITALS: BP 139/88; PULSE 78; RESP 18; TEMP 36.2; O2SAT 100
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
--- NOTE | 2018-03-15 17:51 | DI.CT.S_ITS ---
PROCEDURE: CT CERVICAL SPINE WO CON INDICATIONS: chronic pain/radicular sx worsening (no acute injury) TECHNIQUE: Noncontrast 3 mm thick sections acquired from the skull base to the T4 level. Sagittal and coronal reformats were then constructed. For radiation dose reduction, the following was used: automated exposure control, adjustment of mA and/or kV according to patient size. COMPARISON: [facility], MR, C-SPINE WITHOUT CONTRAST, 10/30/2013, 10:39. [facility], CT, C-SPINE WITHOUT CONTRAST, 02/10/2008, 0:42. [facility], CT, CT CERVICAL SPINE WO CON, 12/19/2017, 10:56. FINDINGS: Image quality: This examination is somewhat limited by quantum mottle artifact. Bones: No fractures or dislocations. Visualized superior ribs are intact. Cervical spine fixation hardware can be seen anteriorly, C4-C7. No findings of hardware failure or hardware loosening are seen. Bridging anterior osteophytes are seen at the C3-C4 level. Minimal anterolisthesis can be seen at the C7-T1 level. Soft tissues: Prevertebral soft tissues are normal in thickness. No paravertebral hematomas. No apical pneumothoraces. IMPRESSION: Unremarkable cervical spine fixation hardware. No acute abnormality is seen. Dictated by: Uriel Floyd M.D. on 03/15/2018 at 17:20 Approved by: Uriel Floyd M.D. on 03/15/2018 at 17:22
[2018-03-15] MEDS: PANTOPRAZOLE 20 MG TABLET 40 MG PO (18:26)
[2018-03-15] MEDS: KETOROLAC 60 MG/2 ML VIAL 30 MG IM (18:26)
[2018-03-15 19:17] VITALS: BP 141/82; PULSE 72; RESP 16; O2SAT 98
== END 2018-03-15 19:29 | disposition home or self-care (01) ==
PROVIDERS: Emergency Provider Internal Medicine; Family Provider Family Medicine; PCP Family Medicine
DX: M54.12 Radiculopathy, cervical region (principal); M54.2 Cervicalgia; G89.29 Other chronic pain
CPT/HCPCS: 72125; 96372; 99282; 99284; J1885

== ENCOUNTER 2018-03-19 15:15 | Emergency (ER) | payer MEDICARE, MEDICAID, SELFPAY ==
[2018-03-19 15:23] VITALS: BP 162/80; PULSE 69; RESP 18; TEMP 36.9; O2SAT 100; BMI 27.4
--- NOTE | 2018-03-19 16:24 | ED.NECK ---
HPI - Neck Pain/Injury General Chief Complaint: Neck Pain/Injury Stated Complaint: implant in neck is causing pain in neck and back Time Seen by Provider: 03/19/18 16:04 Source: patient Mode of arrival: ambulatory Limitations: no limitations History of Present Illness HPI Narrative: Patient is a 62-year-old male who presents with chronic ongoing neck pain. He is well-known to me and myself. He is a known alcoholic no he states he has not been drinking. He has some shaking going on and tremors which is also not abnormal for him. He is mostly complaining chronic ongoing pain. No numbness or tingling in his extremities. He has an appointment with a doctor on the . MD complaint: neck pain Related Data Home Medications Medication Instructions Recorded Confirmed lisinopril 1 tab PO DAILY 02/07/18 03/19/18 Previous Rx's Medication Instructions Recorded omeprazole 40 mg PO DAILY #20 cap 03/11/18 ibuprofen 400 mg PO BID-TID PRN #14 tab 03/19/18 Allergies Allergy/AdvReac Type Severity Reaction Status Date / Time acetaminophen [ACETAMINOPHEN] Allergy Mild ITCHING Unverified 03/19/18 15:27 lisinopril [LISINOPRIL] Allergy Unknown Unverified 03/19/18 15:27 cortisone [CORTISONE] AdvReac Intermediate MADE ME Unverified 03/19/18 15:27 VERY HOT AND MADE ME NUTS codeine [CODEINE] AdvReac Mild ITCHY AND Unverified 03/19/18 15:27 DIFFICULTY SLEEPING Review of Systems Review of Systems GENERAL: Denies chills, fatigue, malaise, fever, sweats, travel HEENT: Denies sinus pain, ear pain, sore throat, difficulty swallowing, neck pain RESPIRATORY: Denies dyspnea, cough, wheezing, hemoptysis, sputum. CARDIOVASCULAR: Denies chest pain, palpitations, orthopnea, edema GASTROINTESTINAL: Denies nausea, vomiting, abdominal pain, diarrhea, constipation, melena. : Denies dysuria, frequency, incontinence, hematuria, urinary retention, flank pain. MUSCULOSKELETAL: Denies weakness, joint pain, or bony pain SKIN: No rash, no erythema, no pruritus NEUROLOGIC: Denies weakness, dizziness, headache, numbness, change in speech, confusion PSYCHIATRIC: No concerning psychosocial issues. 12 point review of systems is negative except for those stated above and HPI [facility] Medical History Chronic pain syndrome (Acute) Alcoholism (Chronic) Surgical History History of knee surgery (Resolved) History of spinal fusion (06/11/14) Status post discectomy (06/11/14) Social History Smoking Status: Current every day smoker alcohol intake: current additional social history: history of alcohol abuse and THC Exam Initial Vital Signs Initial Vital Signs: Vital Signs Temperature 98.4 F 03/19/18 15:23 Pulse Rate 69 03/19/18 15:23 Respiratory Rate 18 03/19/18 15:23 Blood Pressure 162/80 H 03/19/18 15:23 Pulse Oximetry 100 03/19/18 15:23 Const General: cooperative, comfortable and well developed Nutritional Appearance: thin Orientation: alert, awake and oriented x3 HENMT Head: normal to inspection and normocephalic Eyes General: appearance normal, both eyes and all related structures Neck Neck: normal visual inspection, full ROM, No no meningeal signs and trachea midline Chest Chest: normal inspection of the chest Resp Effort & Inspection: normal respiratory effort and able to speak in complete sentences Auscultation: clear to auscultation bilaterally, no rales, no rhonchi and no wheezes Cardio Rate: regular rate Rhythm: regular rhythm Heart Sounds: S1 normal and S2 normal GI Palpation: soft, No firm, No tender and No ascites Back/Spine/Pelvis Back: normal to inspection Skin General: no rashes or lesions noted Neuro General: alert, awake and oriented x3 Other: Bilateral upper extremity intention tremors no asterixis Course Orders Ordered: Discontinued Medications Ketorolac Tromethamine (Toradol) 30 mg IM NOW ONE Stop: 03/19/18 16:57 Last Admin: 03/19/18 17:00 Dose: 30 mg Lorazepam (Ativan) 2 mg PO NOW ONE Stop: 03/19/18 17:43 Vital Signs - 8 hr 03/19/18 15:23 Temperature 98.4 F Pulse Rate 69 Respiratory Rate 18 Blood Pressure 162/80 H Pulse Oximetry 100 MDM - Neck Pain/Injury MDM Narrative Medical decision making narrative: Patient recently had CT of his neck which showed chronic problems. He does have does have some tremors which she has had in the past. I have offered him referral to pain specialist Dr. Mancini he refuses any steroid injection he had a terrible response to it. He cannot take Tylenol or steroids. He has appointment with a new PCP at clinic on March 30. He is currently requesting something for the tremors I want to know what to do for his pain home. He is tired of ibuprofen however with his alcohol abuse recent history I will not give him anything stronger at this time. He has steady gait speaks in full sentences no slurring of speech no signs of clinical toxicity. Lidocaine patches may also be benefit for him. His ride is here to pick him up he is ready to go. Discharge Plan Departure Patient Disposition: Home Clinical Impression: Radiculopathy of cervical region Instructions: DI for Cervical Radiculopathy Activity Restrictions/Additional Instructions: *You have been diagnosed with cervical radiculopathy *What to do: Need to see your primary care doctor *Continue to take medications as directed -Motrin 400 mg every to date hours if needed for pain-WITH FOOD *Follow up with your primary care provider in 2-3 days *Return to ER if you should have increasing pain, weakness or any new, worsening or concerning symptoms Prescriptions: New ibuprofen 400 mg tablet 400 mg PO BID-TID PRN (Reason: fever or pain) Qty: 14 RF: 0 No Action lisinopril 20 mg tablet 1 tab PO DAILY RF: 0 omeprazole 40 mg capsule,delayed release(DR/EC) 40 mg PO DAILY Qty: 20 RF: 0 Referrals: Flex Mancini DO [Physician] - Aneudy Elias MD [Primary Care Provider] -
[2018-03-19] MEDS: KETOROLAC 60 MG/2 ML VIAL 30 MG IM (17:00)
[2018-03-19] MEDS: LORazepam 0.5 MG TABLET 2 MG PO (17:50)
== END 2018-03-19 17:57 | disposition home or self-care (01) ==
PROVIDERS: Emergency Provider Emergency Medicine; PCP Family Medicine
DX: M54.12 Radiculopathy, cervical region (principal)
CPT/HCPCS: 96372; 99282; 99283; J1885

== ENCOUNTER 2018-03-22 18:17 | Emergency (ER) | payer MEDICARE, MEDICAID, SELFPAY ==
[2018-03-22 18:21] VITALS: BP 159/79; PULSE 85; RESP 14; TEMP 36.9; O2SAT 99; BMI 20.9
[2018-03-22 18:26] VITALS: BP 159/79; PULSE 85; RESP 14; TEMP 36.9; O2SAT 99; BMI 20.9
--- NOTE | 2018-03-22 18:29 | ED.NECK ---
HPI - Neck Pain/Injury General Chief Complaint: Neck Pain/Injury Stated Complaint: states pain in right side of face/neck area Time Seen by Provider: 03/22/18 18:24 Source: patient Mode of arrival: ambulatory Limitations: no limitations History of Present Illness HPI Narrative: Patient is a 62-year-old male who has been evaluated multiple times both this emergency department also in the walk-in clinic for right-sided neck pain. He has had a CT scan in the past which does not show any new pathology. Patient arrives today with his medications and toe. He does have prescriptions for Mobic, Celebrex, seen him Ativan, ibuprofen. He states that he also has tried marijuana for the pain which has not helped. He states that he is not drinking. He states that the pain in his right side of his neck is not new. He does have follow-up scheduled with providers next month. Patient states that ?clonazepam ?has helped him in the past although he is not taking this medication. Related Data Home Medications Medication Instructions Recorded Confirmed lisinopril 1 tab PO DAILY 02/07/18 03/20/18 Previous Rx's Medication Instructions Recorded omeprazole 40 mg PO DAILY #20 cap 03/11/18 ibuprofen 400 mg PO BID-TID PRN #14 tab 03/19/18 cyclobenzaprine 10 mg PO TID PRN #12 tab 03/22/18 Allergies Allergy/AdvReac Type Severity Reaction Status Date / Time acetaminophen [ACETAMINOPHEN] Allergy Mild ITCHING Unverified 03/19/18 15:27 lisinopril [LISINOPRIL] Allergy Unknown Unverified 03/19/18 15:27 cortisone [CORTISONE] AdvReac Intermediate MADE ME Unverified 03/19/18 15:27 VERY HOT AND MADE ME NUTS codeine [CODEINE] AdvReac Mild ITCHY AND Unverified 03/19/18 15:27 DIFFICULTY SLEEPING Review of Systems Constitutional Reports headache(s) and Reports weakness (Right upper extremity) ENT Ears, Nose, Mouth, and Throat: Reports headache(s) and Reports neck pain Cardiovascular Denies chest pain and Denies dyspnea Respiratory Denies dyspnea Gastrointestinal Gastrointestinal: Denies abdominal pain Musculoskeletal Reports neck pain, Reports numbness (Right upper extremity), Reports stiffness and Reports tingling Comments: Right shoulder and right neck pain Integumentary/Breasts Denies rash Neurologic Reports headache(s), Reports numbness (Right upper extremity), Reports radicular pain (Right upper extremity), Reports tingling and Reports weakness (Right upper extremity) PFSH Medical History Chronic pain syndrome (Acute) Alcoholism (Chronic) Surgical History History of knee surgery (Resolved) History of spinal fusion (06/11/14) Status post discectomy (06/11/14) Social History Smoking Status: Current every day smoker alcohol intake: current additional social history: history of alcohol abuse and THC Exam Initial Vital Signs Initial Vital Signs: Vital Signs Temperature 98.4 F 03/22/18 18:21 Pulse Rate 85 03/22/18 18:21 Respiratory Rate 14 03/22/18 18:21 Blood Pressure 159/79 H 03/22/18 18:21 Pulse Oximetry 99 03/22/18 18:21 Const General: well developed, well groomed and No acute distress Orientation: alert, awake and oriented x3 HENMT Head: normal to inspection and normocephalic Resp Effort & Inspection: normal respiratory effort Cardio Rate: regular rate Skin Rashes: no rashes Neuro General: alert, awake and oriented x3 Extrem General: capillary refill normal Other: Pain with abduction of the right upper extremity. Psych Appearance: grossly normal Course Orders Ordered: Discontinued Medications Cyclobenzaprine HCl (Flexeril) 10 mg PO NOW ONE Stop: 03/22/18 18:54 Last Admin: 03/22/18 18:59 Dose: 10 mg Ketorolac Tromethamine (Toradol) 30 mg IM NOW ONE Stop: 03/22/18 18:54 Last Admin: 03/22/18 18:59 Dose: 30 mg Vital Signs - 8 hr 03/22/18 18:21 03/22/18 18:26 Temperature 98.4 F 98.4 F Pulse Rate 85 85 Respiratory Rate 14 14 Blood Pressure 159/79 H 159/79 H Pulse Oximetry 99 99 MDM - Neck Pain/Injury MDM Narrative Medical decision making narrative: Had a long discussion with the patient regarding his symptoms. I did inform him that there was no one medication that will take his symptoms completely away. I did inform him that this is a long-term process that needs multiple interventions and specialist to include a primary care doctor, sandblaster paint sprayer and also potentially a import/export specialist. We did discuss the medications that he was taking. I did inform him that he should not be taking the Motrin, Naprosyn, Mobic all at 1 time. He states that he is not taking his medications. He does have a prescription for Celebrex. I did tell him that this would be the best medication for him to take and that he needs to be taking it 3 times a day. Also informed that he needs to continue his reflux medication. I informed him that I was not comfortable providing him with pain medication out of the emergency department. Also informed him that I was uncomfortable with providing him clonazepam long-term out of the emergency department. He does have a history of alcohol abuse and I am concerned that these medications may interact with his alcohol. He was given a Toradol shot here in the ER. I will send him home with [facility]. Informed him not to drink while taking this medication. Patient was not suicidal. He stated that he was in so much discomfort he was just saying that he would rather not be around. I did inform him that he could return to the emergency department for new symptoms however we would not treat chronic pain of the emergency department. We did discuss other modalities such as stretching and exercise and heat and ice. Informed him to keep all of his scheduled medical appointments. He was given return precautions. Discharge Plan Departure Patient Disposition: Home Clinical Impression: Chronic neck pain, Radiculopathy of cervical region Discharge Date/Time: 03/22/18 19:10 Interventions: ED Discharge Assessment Last Done: 03/22/18 19:10 Instructions: DI for Cervical Radiculopathy Activity Restrictions/Additional Instructions: Unfortunately your medical condition is 1 that is going to take a long time to improve and may never completely resolved. Your condition does require evaluation by primary care doctor, sandblaster paint sprayer and potentially a import/export specialist. Unfortunately the emergency department is not able to provide long-term pain medication. I do recommend that you start taking the gabapentin 100 mg 3 times a day. You already have this medication. The prescription you were given this evening is a muscle relaxer. Hopefully this will provide some pain control. Do not drink with this medication. Continue to take your omeprazole. Prescriptions: New cyclobenzaprine 10 mg tablet 10 mg PO TID PRN (Reason: muscle spasm) Qty: 12 RF: 0 No Action lisinopril 20 mg tablet 1 tab PO DAILY RF: 0 omeprazole 40 mg capsule,delayed release(DR/EC) 40 mg PO DAILY Qty: 20 RF: 0 ibuprofen 400 mg tablet 400 mg PO BID-TID PRN (Reason: fever or pain) Qty: 14 RF: 0
[2018-03-22] MEDS: KETOROLAC 60 MG/2 ML VIAL 30 MG IM (18:59)
[2018-03-22] MEDS: CYCLOBENZAPRINE 10 MG TABLET PO (18:59)
--- NOTE | 2018-03-22 19:09 | PC.NURSE ---
pt requesting pain management r/t chronic neck pain, reports multiple spine surgeries in the past, denies recent injury, ambulatory ind moving all ext
== END 2018-03-22 19:10 | disposition home or self-care (01) ==
PROVIDERS: Emergency Provider Emergency Medicine; PCP Family Medicine
DX: M54.2 Cervicalgia (principal); G89.29 Other chronic pain; M54.12 Radiculopathy, cervical region
CPT/HCPCS: 96372; 99282; 99283; J1885

== ENCOUNTER 2018-04-16 16:39 | Emergency (ER) | payer MEDICARE, MEDICAID, SELFPAY ==
[2018-04-16 16:55] VITALS: BP 177/75; PULSE 77; RESP 20; TEMP 37.1; O2SAT 97; BMI 22.8
--- NOTE | 2018-04-16 17:01 | PC.NURSE ---
Out to talk to pt after triage. Told registration that he is dying. Expl that his vitals are stable and assured him that he is not dying and he would come back as soon as possible
--- NOTE | 2018-04-16 17:24 | PC.NURSE ---
Called by registration. States pt is walking around to other patients and telling them that they're not helping me. It is explained to the pateint again, that he will unfortunately need to wait like the other patients are for his turn to be seen. Apology is made for the wait and pt is assured that we will help him
[2018-04-16 18:05] VITALS: BP 177/75; PULSE 75; RESP 18; O2SAT 98
--- NOTE | 2018-04-16 18:05 | PC.NURSE ---
Patient in waiting room. 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 Patient telling nurse Will you let me go outside to . States he feels dizzy and has abdominal and neck pain. Obtained vital signs. Patient ambulating with steady gait. Assisted patient to couch in waiting room and notified triage nurse and provider.
--- NOTE | 2018-04-16 18:49 | ED.ABDPAIN ---
HPI - Abdominal Pain General Chief Complaint: Abdominal Pain Stated Complaint: had a few drinks, states stomach pain Time Seen by Provider: 04/16/18 18:06 Source: patient Mode of arrival: ambulatory Limitations: no limitations History of Present Illness HPI narrative: Patient is a 62-year-old male who I evaluated here in the emergency department in the past for cervical radiculopathy and also abdominal pain. Please see my note from March 22, 2017 for further evaluation of this. Patient returns again today for continued neck pain also abdominal pain. He did admit to drinking alcohol today. From my last note patient stated that he had a follow-up in about a month which would put around this time. I asked the patient if he has followed up with his primary doctor and he has said that he was told to find a new primary doctor. Unsure if he is taking his medications as directed. He is having abdominal pain today which she states he is going to ? in the next 15 min ?if I did not provide him pain medication. Patient states that this is different abdominal pain from his normal pain. It is on the left side. No vomiting. No fevers. Related Data Home Medications Medication Instructions Recorded Confirmed lisinopril 1 tab PO DAILY 02/07/18 03/20/18 Previous Rx's Medication Instructions Recorded omeprazole 40 mg PO DAILY #20 cap 03/11/18 ibuprofen 400 mg PO BID-TID PRN #14 tab 03/19/18 cyclobenzaprine 10 mg PO TID PRN #12 tab 03/22/18 Allergies Allergy/AdvReac Type Severity Reaction Status Date / Time acetaminophen [ACETAMINOPHEN] Allergy Mild ITCHING Unverified 03/19/18 15:27 lisinopril [LISINOPRIL] Allergy Unknown Unverified 03/19/18 15:27 cortisone [CORTISONE] AdvReac Intermediate MADE ME Unverified 03/19/18 15:27 VERY HOT AND MADE ME NUTS codeine [CODEINE] AdvReac Mild ITCHY AND Unverified 03/19/18 15:27 DIFFICULTY SLEEPING Review of Systems Review of Systems Patient will only answer a portion of my review of systems questions ENT Ears, Nose, Mouth, and Throat: Reports neck pain Cardiovascular Comments: Patient would not answer Respiratory Comments: Patient would not answer Gastrointestinal Gastrointestinal: Reports abdominal pain, Denies change in stool character, Denies nausea and Denies vomiting Musculoskeletal Denies myalgias, Denies arthralgias and Reports neck pain Integumentary/Breasts Denies rash PFSH Medical History Chronic pain syndrome (Acute) Alcoholism (Chronic) Surgical History History of knee surgery (Resolved) History of spinal fusion (06/11/14) Status post discectomy (06/11/14) Social History Smoking Status: Current every day smoker alcohol intake: current additional social history: history of alcohol abuse and THC Exam Initial Vital Signs Initial Vital Signs: Vital Signs Temperature 98.8 F 04/16/18 16:55 Pulse Rate 77 04/16/18 16:55 Respiratory Rate 20 04/16/18 16:55 Blood Pressure 177/75 H 04/16/18 16:55 Pulse Oximetry 97 04/16/18 16:55 Const General: No cooperative, well developed and No acute distress Orientation: alert, awake, oriented to person, oriented to place, oriented to time and not confused HENMT Head: normal to inspection and normocephalic Resp Other: Would not allow me to perform a respiratory exam Cardio Rate: regular rate Other: He would not allow me to examine his heart GI Inspection: non-distended Palpation: soft Other: Was tender to palpation left side abdomen but not having rebound or guarding Neuro General: alert, awake and oriented x3 Speech: other (Was slurring some of his words) Gait: normal gait Extrem General: normal to inspection and capillary refill normal Psych Appearance: grossly normal Course Vital Signs - 8 hr 04/16/18 16:55 04/16/18 18:05 Temperature 98.8 F Pulse Rate 77 75 Respiratory Rate 20 18 Blood Pressure 177/75 H Blood Pressure [Left Arm] 177/75 H Pulse Oximetry 97 98 MDM - Abdominal Pain MDM Narrative Medical decision making narrative: Patient stated that he was going to dive had not provide him pain medication in the next 15 min. I informed him because of his prior history and also fact that he was drinking today that I was uncomfortable providing him opioid pain medication here in the emergency department. I did offer non opioid alternatives but the patient refused. I did inform him that we should look further into his abdominal pain. He was at risk for things like pancreatitis or GI bleed or diverticulitis. Patient stated that if I was not going to provide him pain medication that he was going to leave. He was alert and oriented however did is slur some of his words. He was ambulating without any problems. I again informed him that his pain control needs to come from his primary doctor or from a paint grinder stone mill. Patient refused any other treatment here in the emergency department. Refused further evaluation such as evaluation of his heart lungs. Informed the patient that we should evaluate his abdomen further however he refused. He expressed understanding that there could potentially be a surgical issue. He stated if I was not going to give him pain medication that he was going to leave. He did sign the against medical advice paperwork. He is informed that he could return to the emergency department at any time if his symptoms worsen. Discharge Plan Departure Patient Disposition: Left Against Medical Advice Clinical Impression: Abdominal pain, Alcohol abuse Discharge Date/Time: 04/16/18 19:11 Interventions: ED Discharge Assessment Last Done: 04/16/18 19:10 Instructions: DI for Abdominal Pain-Adult Activity Restrictions/Additional Instructions: Unfortunately because of her alcohol use I feel uncomfortable giving you opioid pain medication here in the emergency department. You rejected offers for other non opioid treatments. I do recommend that we do lab work and potentially CT scan to evaluate your abdominal pain. You have decided to leave against medical advice. You can return to the emergency department at any point. I do recommend that you continue with your omeprazole. Call your primary care doctor for follow-up. Prescriptions: No Action lisinopril 20 mg tablet 1 tab PO DAILY RF: 0 omeprazole 40 mg capsule,delayed release(DR/EC) 40 mg PO DAILY Qty: 20 RF: 0 ibuprofen 400 mg tablet 400 mg PO BID-TID PRN (Reason: fever or pain) Qty: 14 RF: 0 cyclobenzaprine 10 mg tablet 10 mg PO TID PRN (Reason: muscle spasm) Qty: 12 RF: 0 Stand Alone Forms: Against Medical Advice
== END 2018-04-16 19:11 | disposition left against medical advice (07) ==
PROVIDERS: Emergency Provider Emergency Medicine; PCP Family Medicine
DX: R10.9 Unspecified abdominal pain (principal); F10.10 Alcohol abuse, uncomplicated
CPT/HCPCS: 99282

== ENCOUNTER 2018-04-17 05:45 | Emergency (ER) | payer MEDICARE, MEDICAID, SELFPAY ==
--- NOTE | 2018-04-17 06:03 | ED_ITS ---
HPI - Abdominal Pain <Yuval Henderson DO - Last Filed: 04/17/18 18:14> General Chief Complaint: Abdominal Pain Stated Complaint: STOMACH PROBLEM/PAIN NECK PAIN Time Seen by Provider: 04/17/18 05:50 Source: patient Mode of arrival: ambulatory Limitations: no limitations History of Present Illness HPI narrative: Patient is a 62-year-old male who I saw at the beginning of the shift here in the emergency department for neck pain and abdominal pain. At that visit a refused to give the patient opioid pain medication in he refused any other non opioid alternatives. I informed him that given his symptoms we should obtain labs and a CT scan to evaluate for surgical pathology. At that point he left against medical advice. He was told he could return at any point to complete his workup. He returns this morning again for abdominal pain. He states that he drinks because the abdominal pain. He also is complaining of neck pain and knee pain. No other new symptoms. Related Data Home Medications Medication Instructions Recorded Confirmed lisinopril 1 tab PO DAILY 02/07/18 03/20/18 Previous Rx's Medication Instructions Recorded ibuprofen 400 mg PO BID-TID PRN #14 tab 03/19/18 cyclobenzaprine 10 mg PO TID PRN #12 tab 03/22/18 amoxicillin-pot clavulanate 1 tab PO Q12H #14 tab 04/17/18 [Augmentin] omeprazole 20 mg PO BID #30 tab 04/17/18 Allergies Allergy/AdvReac Type Severity Reaction Status Date / Time acetaminophen [ACETAMINOPHEN] Allergy Mild ITCHING Verified 04/17/18 16:46 lisinopril [LISINOPRIL] Allergy Unknown Verified 04/17/18 16:46 cortisone [CORTISONE] AdvReac Intermediate MADE ME Verified 04/17/18 16:46 VERY HOT AND MADE ME NUTS codeine [CODEINE] AdvReac Mild ITCHY AND Verified 04/17/18 16:46 DIFFICULTY SLEEPING Review of Systems <DO Kika Avalos Last Filed: 04/17/18 18:14> Constitutional Denies fever(s) ENT Ears, Nose, Mouth, and Throat: Reports neck pain Cardiovascular Denies chest pain and Denies dyspnea Respiratory Denies dyspnea Gastrointestinal Gastrointestinal: Reports abdominal pain and Denies change in bowel habits Genitourinary Denies dysuria Musculoskeletal Reports arthralgias (Right knee) and Reports neck pain Integumentary/Breasts Denies rash Hematologic/Lymphatic Comments: Not on blood thinners Exam <DO Kika Avalos Last Filed: 04/17/18 18:14> Initial Vital Signs Initial Vital Signs: Vital Signs Temperature 97.8 F 04/17/18 06:05 Pulse Rate 75 04/17/18 06:05 Respiratory Rate 18 04/17/18 06:05 Blood Pressure 184/84 H 04/17/18 06:05 Pulse Oximetry 100 04/17/18 06:05 Const General: cooperative and No acute distress Orientation: alert, awake and oriented x3 HENMT Head: normal to inspection Resp Effort & Inspection: normal respiratory effort Auscultation: clear to auscultation bilaterally Cardio Rate: regular rate Pulses: radial pulses present GI Inspection: non-distended Palpation: soft, No firm and tender (Left side abdomen) Skin Lesions: no lesions Rashes: no rashes Neuro General: alert, awake and oriented x3 Extrem General: normal to inspection and capillary refill normal Psych Appearance: disheveled <Etelvina Heart DO - Last Filed: 04/17/18 08:45> Initial Vital Signs Initial Vital Signs: Vital Signs Temperature 97.8 F 04/17/18 06:05 Pulse Rate 75 04/17/18 06:05 Respiratory Rate 18 04/17/18 06:05 Blood Pressure 184/84 H 04/17/18 06:05 Pulse Oximetry 100 04/17/18 06:05 Course <DO Kika Avalos Last Filed: 04/17/18 18:14> Orders Ordered: Discontinued Medications Al Hydrox/Mg Hydrox/Simethicone 20 ml/ Lidocaine HCl 15 ml 0 ml PO NOW ONE Stop: 04/17/18 08:11 Last Admin: 04/17/18 08:17 Dose: 30 ml Sodium Chloride (Normal Saline 0.9%) 1,000 mls @ 1,000 mls/hr IV BOLUS ONE Stop: 04/17/18 07:07 Last Infusion: 04/17/18 08:08 Dose: 0 mls/hr Admin: 04/17/18 06:49 Dose: 1,000 mls/hr Ketorolac Tromethamine (Toradol) 30 mg IV NOW ONE Stop: 04/17/18 06:09 Last Admin: 04/17/18 06:49 Dose: 30 mg Pantoprazole Sodium (Protonix) 40 mg IV NOW ONE Stop: 04/17/18 07:40 Last Admin: 04/17/18 08:06 Dose: 40 mg Vital Signs - 8 hr 04/17/18 06:05 Temperature 97.8 F Pulse Rate 75 Respiratory Rate 18 Blood Pressure 184/84 H Pulse Oximetry 100 <Etelvina Heart DO - Last Filed: 04/17/18 08:45> Orders Ordered: Discontinued Medications Al Hydrox/Mg Hydrox/Simethicone 20 ml/ Lidocaine HCl 15 ml 0 ml PO NOW ONE Stop: 04/17/18 08:11 Last Admin: 04/17/18 08:17 Dose: 30 ml Sodium Chloride (Normal Saline 0.9%) 1,000 mls @ 1,000 mls/hr IV BOLUS ONE Stop: 04/17/18 07:07 Last Infusion: 04/17/18 08:08 Dose: 0 mls/hr Admin: 04/17/18 06:49 Dose: 1,000 mls/hr Ketorolac Tromethamine (Toradol) 30 mg IV NOW ONE Stop: 04/17/18 06:09 Last Admin: 04/17/18 06:49 Dose: 30 mg Pantoprazole Sodium (Protonix) 40 mg IV NOW ONE Stop: 04/17/18 07:40 Last Admin: 04/17/18 08:06 Dose: 40 mg Vital Signs - 8 hr 04/17/18 06:05 Temperature 97.8 F Pulse Rate 75 Respiratory Rate 18 Blood Pressure 184/84 H Pulse Oximetry 100 MDM - Abdominal Pain <Yuval Henderson DO - Last Filed: 04/17/18 18:14> Lab Data Result diagrams: 04/17/18 06:56 04/17/18 06:56 Lab Results 04/17/18 04/17/18 04/17/18 Range/Units 06:49 06:56 06:56 WBC 12.5 H (4.5-11.0) X10^3/uL RBC 3.90 L (4.5-5.9) X10^6/uL Hgb 13.5 (13.5-17.5) g/dL Hct 39.8 L (41-53) % MCV 102.0 H (80-100) fL MCH 34.5 H (26-34) PG MCHC 33.8 (30-36) % RDW 14.9 H (11.6-14.8) % Plt Count 303 (150-400) X10^3/uL Neut % (Auto) 66.1 (50-75) % Lymph % (Auto) 24.2 L (25-40) % [place] % (Auto) 6.5 (3-14) % Eos % (Auto) 2.1 (2-4) % Baso % (Auto) 1.1 (0-2) % Neut # (Auto) 8300 H (2361-2626) /uL Sodium 138 (137-145) mmol/L Potassium 3.7 (3.4-5.1) mmol/L Chloride 101 (98-107) mmol/L Carbon Dioxide 28 (22-32) mmol/L BUN 10 (9-20) mg/dL Creatinine 0.90 (0.66-1.25) mg/dL Estimated GFR > 60.0 (>60) mL/min BUN/Creatinine Ratio 11.1 (6-22) Glucose 116 H (80-110) mg/dL Calcium 9.1 (8.4-10.2) mg/dL Total Bilirubin 1.0 (0.2-1.3) mg/dL AST 21 (17-59) IU/L ALT 18 L (21-72) IU/L Alkaline Phosphatase 67 (38-126) U/L Total Protein 7.3 (6.3-8.2) g/dL Albumin 4.1 (3.5-5.0) g/dL Globulin 3.2 (1.7-4.1) g/dL Albumin/Globulin Ratio 1.3 (1.0-2.8) Lipase 53 (23-300) U/L Urine RBC None seen (0-5/HPF) Urine WBC 0-1/hpf (0-5/HPF) Urine Bacteria Occasional (0-1) (None) Ur Culture Indicated? Cult not indicated Micro UA Comment Not Reportable Point of care testing: Urine Dip Bedside Urine Glucose Negative Bedside Urine Bilirubin - Negative Bedside Urine Ketone +/- 5 Urine Specific [place] 1.010 Bedside Urine Occult Blood - Negative Bedside Urine pH 8.0 Bedside Urine Protein +/- 15 Bedside Urine Urobilinogen - Negative Bedside Urine Nitrite - Negative Bedside Urine Leukocytes - Negative Esterase MDM Narrative Medical decision making narrative: I once again informed patient that I would not provide opioid medications here in the emergency department. We did discuss non opioid symptom treatment. Labs and CT scan ordered. Care turned over to day provider at change of shift for continued evaluation and treatment and ultimate disposition <Etelvina Heart DO - Last Filed: 04/17/18 08:45> Lab Data Attestation: I reviewed the patient's lab results. Lab Results 04/17/18 04/17/18 04/17/18 Range/Units 06:49 06:56 06:56 WBC 12.5 H (4.5-11.0) X10^3/uL RBC 3.90 L (4.5-5.9) X10^6/uL Hgb 13.5 (13.5-17.5) g/dL Hct 39.8 L (41-53) % MCV 102.0 H (80-100) fL MCH 34.5 H (26-34) PG MCHC 33.8 (30-36) % RDW 14.9 H (11.6-14.8) % Plt Count 303 (150-400) X10^3/uL Neut % (Auto) 66.1 (50-75) % Lymph % (Auto) 24.2 L (25-40) % [place] % (Auto) 6.5 (3-14) % Eos % (Auto) 2.1 (2-4) % Baso % (Auto) 1.1 (0-2) % Neut # (Auto) 8300 H (4381-8141) /uL Sodium 138 (137-145) mmol/L Potassium 3.7 (3.4-5.1) mmol/L Chloride 101 (98-107) mmol/L Carbon Dioxide 28 (22-32) mmol/L BUN 10 (9-20) mg/dL Creatinine 0.90 (0.66-1.25) mg/dL Estimated GFR > 60.0 (>60) mL/min BUN/Creatinine Ratio 11.1 (6-22) Glucose 116 H (80-110) mg/dL Calcium 9.1 (8.4-10.2) mg/dL Total Bilirubin 1.0 (0.2-1.3) mg/dL AST 21 (17-59) IU/L ALT 18 L (21-72) IU/L Alkaline Phosphatase 67 (38-126) U/L Total Protein 7.3 (6.3-8.2) g/dL Albumin 4.1 (3.5-5.0) g/dL Globulin 3.2 (1.7-4.1) g/dL Albumin/Globulin Ratio 1.3 (1.0-2.8) Lipase 53 (23-300) U/L Urine RBC None seen (0-5/HPF) Urine WBC 0-1/hpf (0-5/HPF) Urine Bacteria Occasional (0-1) (None) Ur Culture Indicated? Cult not indicated Micro UA Comment Not Reportable Point of care testing: Urine Dip Bedside Urine Glucose Negative Bedside Urine Bilirubin - Negative Bedside Urine Ketone +/- 5 Urine Specific [place] 1.010 Bedside Urine Occult Blood - Negative Bedside Urine pH 8.0 Bedside Urine Protein +/- 15 Bedside Urine Urobilinogen - Negative Bedside Urine Nitrite - Negative Bedside Urine Leukocytes - Negative Esterase Imaging Data CT scan - abdomen: Radiologist's impression: PROCEDURE: CT ABDOMEN PELVIS W CON INDICATIONS: Left-sided abdominal pain,stomach x 24hours TECHNIQUE: After the administration of oral and intravenous contrast, 5 mm thick sections acquired from the diaphragms to the symphysis. 5 mm thick coronal and sagittal reformats were performed. For radiation dose reduction, the following was used: automated exposure control, adjustment of mA and/or kV according to patient size. COMPARISON: [facility], CT, CT ABDOMEN PELVIS WITH CONTRAST, 2017, 16:53. [facility], CT, ABDOMEN/PELVIS WITH CONTRAST, 02/01/2017, 12:08. FINDINGS: Image quality: Excellent. ABDOMEN: Lung bases: There is mild dependent atelectasis. Heart size is at the upper limits of normal. Solid organs: There is hypoattenuation of the liver consistent with fatty infiltration. No focal hepatic mass lesions the gallbladder appears within normal limits. Biliary system is non-dilated. Pancreas enhances normally. Spleen is normal in size and enhancement. No adrenal nodules. Kidneys are normal in size and enhancement, without hydronephrosis. Peritoneum and bowel: Stomach and small bowel loops are normal in caliber and wall thickness. The appendix is normal in appearance. There is colonic diverticulosis without acute diverticulitis. There is mild segmental thickening within the colon most prominent at the splenic flexure. No free fluid or air. Nodes and vessels: No retroperitoneal or mesenteric adenopathy. Aorta and inferior vena cava are normal in caliber. Miscellaneous: No ventral hernias. PELVIS: Genitourinary: Bladder wall thickness is normal. Miscellaneous: No inguinal hernias or adenopathy. Bones: No suspicious bony lesions. No vertebral body compression fractures. IMPRESSION: 1. Mild colonic wall thickening most prominent at the splenic flexure compatible with a mild infectious or inflammatory colitis. 2. Colonic diverticulosis without acute diverticulitis. Dictated by: Elle Bowie M.D. on 04/17/2018 at 7:55 MDM Narrative Medical decision making narrative: Received sign-out from cnc machinist 2nd shift provider. I have seen evaluated patient. Still complaining of pain CT shows mild infectious or inflammatory colitis. He actually does have mild leukocytosis. Although I do suspect the patient has gastric ulcer. Will treat patient with Augmentin is alcoholic would not tolerate Flagyl. He also understands that he will not be getting pain medication Discharge Plan Departure Patient Disposition: Home Clinical Impression: Colitis, Gastric ulcer Discharge Date/Time: 04/17/18 08:27 Interventions: ED Discharge Assessment Last Done: 04/17/18 08:25 Instructions: Gastric Ulcer, DI for Colitis Activity Restrictions/Additional Instructions: *You have been diagnosed with colitis and gastric ulcer *What to do: Infection in your stomach and ulcer *Continue to take medications as directed Augmentin 875 mg twice a day Omeprazole 20 mg twice a day on an empty stomach *Follow up with your primary care provider in 2-3 days *Return to ER if you should have increasing abdominal pain or any new, worsening or concerning symptoms Prescriptions: New amoxicillin-pot clavulanate [Augmentin] 875-125 mg tablet 1 tab PO Q12H Qty: 14 RF: 0 omeprazole 20 mg tablet,delayed release (DR/EC) 20 mg PO BID Qty: 30 RF: 0 No Action lisinopril 20 mg tablet 1 tab PO DAILY RF: 0 ibuprofen 400 mg tablet 400 mg PO BID-TID PRN (Reason: fever or pain) Qty: 14 RF: 0 cyclobenzaprine 10 mg tablet 10 mg PO TID PRN (Reason: muscle spasm) Qty: 12 RF: 0 Referrals: [facility] [Provider Group] Aneudy Elias MD [Primary Care Provider] -
[2018-04-17 06:05] VITALS: BP 184/84; PULSE 75; RESP 18; TEMP 36.6; O2SAT 100; BMI 20.9
[2018-04-17] MEDS: SODIUM CHLORIDE 0.9% 1,000 ML 1000 ML IV (06:49)
[2018-04-17] MEDS: KETOROLAC 60 MG/2 ML VIAL 30 MG IV (06:49)
[2018-04-17 06:57] LABS: RBC Urine None Seen (0-5/HPF)
[2018-04-17 07:02] LABS: Add Manual Diff / Slide Review NO; Basophils Percent Auto 1.1 % (0-2); Eosinophils Percent Auto 2.1 % (2-4); Hematocrit 39.8 % (41-53); Hemoglobin 13.5 g/dL (13.5-17.5); Lymphocytes Percent Auto 24.2 % (25-40); Mean Corpuscular HGB Conc 33.8 % (30-36); Mean Corpuscular Hemoglobin 34.5 PG (26-34); Monocytes Percent Auto 6.5 % (3-14); Neutrophils Absolute Auto 8300 /uL (1500-7000); Neutrophils Percent Auto 66.1 % (50-75); Platelet Count 303 X10^3/uL (150-400); Red Cell Distribution Width 14.9 % (11.6-14.8); White Blood Cell Count 12.5 X10^3/uL (4.5-11.0)
[2018-04-17 07:09] LABS: Alanine Aminotransferase 18 IU/L (21-72); Albumin 4.1 g/dL (3.5-5.0); Albumin Globulin Ratio 1.3 (1.0-2.8); Alkaline Phosphatase 67 U/L (38-126); Aspartate Aminotransferase 21 IU/L (17-59); BUN Creatinine Ratio 11.1 (6-22); Blood Urea Nitrogen 10 mg/dL (9-20); Calcium 9.1 mg/dL (8.4-10.2); Carbon Dioxide 28 mmol/L (22-32); Chloride 101 mmol/L (98-107); Estimated Glomerular Filt Rate > 60.0 mL/min (>60); Globulin 3.2 g/dL (1.7-4.1); Glucose 116 mg/dL (80-110); HEMOLYSIS 15 (0-50); Lipase 53 U/L (23-300); Potassium 3.7 mmol/L (3.4-5.1); Sodium 138 mmol/L (137-145); Total Protein 7.3 g/dL (6.3-8.2)
[2018-04-17 07:10] LABS: Bacteria Urine Occasional (0-1); Culture Indicated Urine Cult Not Indicated; WBC Urine 0-1/HPF (0-5/HPF)
[2018-04-17 07:15] VITALS: PULSE 59; RESP 18; O2SAT 96
--- NOTE | 2018-04-17 07:36 | DI.CT.S_ITS ---
PROCEDURE: CT ABDOMEN PELVIS W CON INDICATIONS: Left-sided abdominal pain,stomach x 24hours TECHNIQUE: After the administration of oral and intravenous contrast, 5 mm thick sections acquired from the diaphragms to the symphysis. 5 mm thick coronal and sagittal reformats were performed. For radiation dose reduction, the following was used: automated exposure control, adjustment of mA and/or kV according to patient size. COMPARISON: [facility], CT, CT ABDOMEN PELVIS WITH CONTRAST, 08/26/2017, 16:53. [facility], CT, ABDOMEN/PELVIS WITH CONTRAST, 02/01/2017, 12:08. FINDINGS: Image quality: Excellent. ABDOMEN: Lung bases: There is mild dependent atelectasis. Heart size is at the upper limits of normal. Solid organs: There is hypoattenuation of the liver consistent with fatty infiltration. No focal hepatic mass lesions the gallbladder appears within normal limits. Biliary system is non-dilated. Pancreas enhances normally. Spleen is normal in size and enhancement. No adrenal nodules. Kidneys are normal in size and enhancement, without hydronephrosis. Peritoneum and bowel: Stomach and small bowel loops are normal in caliber and wall thickness. The appendix is normal in appearance. There is colonic diverticulosis without acute diverticulitis. There is mild segmental thickening within the colon most prominent at the splenic flexure. No free fluid or air. Nodes and vessels: No retroperitoneal or mesenteric adenopathy. Aorta and inferior vena cava are normal in caliber. Miscellaneous: No ventral hernias. PELVIS: Genitourinary: Bladder wall thickness is normal. Miscellaneous: No inguinal hernias or adenopathy. Bones: No suspicious bony lesions. No vertebral body compression fractures. IMPRESSION: 1. Mild colonic wall thickening most prominent at the splenic flexure compatible with a mild infectious or inflammatory colitis. 2. Colonic diverticulosis without acute diverticulitis. Dictated by: Elle Bowie M.D. on 04/17/2018 at 7:55 Approved by: Elle Bowie M.D. on 04/17/2018 at 7:59
[2018-04-17] MEDS: PANTOPRAZOLE 40 MG VIAL IV (08:06)
[2018-04-17 08:15] VITALS: BP 123/102; PULSE 78; RESP 18; O2SAT 98
[2018-04-17] MEDS: MAG HYDROX/ALUMINUM/SIMETH SUS 20 ML, LIDOCAINE VISCOUS 2% 15 ML PO (08:17)
== END 2018-04-17 08:27 | disposition home or self-care (01) ==
PROVIDERS: Emergency Medicine; Emergency Provider Emergency Medicine; PCP Family Medicine
DX: K52.9 Noninfective gastroenteritis and colitis, unspecified (principal); K25.9 Gastric ulcer, unspecified as acute or chronic, without hemorrhage or perforation
CPT/HCPCS: 36591; 74177; 80053; 81003; 81015; 83690; 85025; 96361; 96374; 96375; 99282; 99283; 99284; C9113; J1885; Q9967

== ENCOUNTER 2018-04-17 16:43 | Emergency (ER) | payer MEDICARE, MEDICAID, SELFPAY ==
[2018-04-17 16:46] VITALS: BP 193/80; PULSE 70; RESP 18; TEMP 36.9; O2SAT 99; BMI 22.2
--- NOTE | 2018-04-17 18:15 | ED.ABDPAIN ---
HPI - Abdominal Pain General Chief Complaint: Abdominal Pain Stated Complaint: Stomach pain/ulcer Time Seen by Provider: 04/17/18 18:15 Source: patient Mode of arrival: ambulatory Limitations: no limitations History of Present Illness HPI narrative: Patient is a 62-year-old male with his 3rd visit in the past 2 days for abdominal pain. His 1st visit he left the emergency department against medical advice after a refused to give him opioid pain medication. Approximately 12 hr ago he return to the emergency department where he stayed and had labs and a CT scan performed which showed a mild colitis. He was discharged home with a prescription for Augmentin was also instructed to stop drinking. Patient did follow up with his primary doctor this afternoon and was prescribed Carafate and Prilosec for presumed ulcer. Patient states that he took the Carafate and that made his symptoms worse. He describes the pain is epigastric and radiating up into his throat. He states it is worse after eating. He states that he drinks because the abdominal pain. Related Data Home Medications Medication Instructions Recorded Confirmed lisinopril 1 tab PO DAILY 02/07/18 03/20/18 Previous Rx's Medication Instructions Recorded ibuprofen 400 mg PO BID-TID PRN #14 tab 03/19/18 cyclobenzaprine 10 mg PO TID PRN #12 tab 03/22/18 amoxicillin-pot clavulanate 1 tab PO Q12H #14 tab 04/17/18 [Augmentin] omeprazole 20 mg PO BID #30 tab 04/17/18 Allergies Allergy/AdvReac Type Severity Reaction Status Date / Time acetaminophen [ACETAMINOPHEN] Allergy Mild ITCHING Verified 04/17/18 16:46 lisinopril [LISINOPRIL] Allergy Unknown Verified 04/17/18 16:46 cortisone [CORTISONE] AdvReac Intermediate MADE ME Verified 04/17/18 16:46 VERY HOT AND MADE ME NUTS codeine [CODEINE] AdvReac Mild ITCHY AND Verified 04/17/18 16:46 DIFFICULTY SLEEPING Review of Systems Constitutional Denies fever(s) and Denies headache(s) ENT Ears, Nose, Mouth, and Throat: Denies vertigo and Denies headache(s) Cardiovascular Denies chest pain and Denies dyspnea Respiratory Denies dyspnea Gastrointestinal Gastrointestinal: Reports abdominal pain, Denies change in bowel habits, Denies nausea and Denies vomiting Genitourinary Denies dysuria Musculoskeletal Denies myalgias and Denies arthralgias Integumentary/Breasts Denies rash Neurologic Denies vertigo and Denies headache(s) Hematologic/Lymphatic Denies easy bleeding and Denies easy bruising PFSH Medical History Chronic pain syndrome (Acute) Alcoholism (Chronic) Surgical History History of knee surgery (Resolved) History of spinal fusion (06/11/14) Status post discectomy (06/11/14) Social History Smoking Status: Current every day smoker alcohol intake: current additional social history: history of alcohol abuse and THC Exam Initial Vital Signs Initial Vital Signs: Vital Signs Temperature 98.5 F 04/17/18 16:46 Pulse Rate 70 04/17/18 16:46 Respiratory Rate 18 04/17/18 16:46 Blood Pressure 193/80 H 04/17/18 16:46 Pulse Oximetry 99 04/17/18 16:46 Const General: well developed and No acute distress Orientation: alert, awake and oriented x3 HENMT Head: normal to inspection and normocephalic Resp Effort & Inspection: normal respiratory effort Auscultation: clear to auscultation bilaterally Cardio Rate: regular rate Rhythm: regular rhythm GI Inspection: non-distended Palpation: soft, No firm, No guarding and tender (Epigastric) Skin Lesions: no lesions Rashes: no rashes Neuro General: alert, awake and oriented x3 Extrem General: normal to inspection and capillary refill normal Psych Appearance: grossly normal and well kempt Course Orders Ordered: Discontinued Medications Al Hydrox/Mg Hydrox/Simethicone 20 ml/ Lidocaine HCl 15 ml 0 ml PO NOW ONE Stop: 04/17/18 18:31 Last Admin: 04/17/18 18:42 Dose: 35 ml Pantoprazole Sodium (Protonix) 40 mg IV NOW ONE Stop: 04/17/18 18:31 Last Admin: 04/17/18 18:44 Dose: 40 mg Vital Signs - 8 hr 04/17/18 16:46 Temperature 98.5 F Pulse Rate 70 Respiratory Rate 18 Blood Pressure 193/80 H Pulse Oximetry 99 MDM - Abdominal Pain MDM Narrative Medical decision making narrative: Patient received a GI cocktail and also Prilosec through the IV here in the emergency department. Patient states he had a complete resolution of his symptoms after the GI cocktail. Had a discussion with him regarding his symptoms. I informed him that I am suspicious that his abdominal pain is caused by ulcers. Informed him that his drinking is not helping the situation. He has no signs of a perforated ulcer. He does have a prescription for omeprazole. He was instructed he needed to take this medication 2 times a day. Informed him that he needed to contact his primary care doctor to discuss referral to see GI. Also informed him that he could by Maalox over the counter intake a small amount of this medication prior to eating to see if that also does not improve his symptoms. He was given return precautions. Expressed understanding and agreement with plan. Discharge Plan Departure Patient Disposition: Home Clinical Impression: Gastroesophageal reflux disease Discharge Date/Time: 04/17/18 19:40 Interventions: ED Discharge Assessment Last Done: 04/17/18 19:39 Instructions: Gastroesophageal Reflux Disease (Alternative Therapy), DI for Gastroesophageal Reflux Disease (GERD) Activity Restrictions/Additional Instructions: I recommend you take the omeprazole 2 times a day. I also highly recommend that you stop drinking which can make an ulcer worse. Also recommend that you purchase Maalox [id number]. You can buy this medicine at any of the drug stores or grocery stores. Before you eat take a small drink of this medication. Call your primary care doctor tomorrow to talk about getting in to see a GI doctor. Prescriptions: No Action lisinopril 20 mg tablet 1 tab PO DAILY RF: 0 ibuprofen 400 mg tablet 400 mg PO BID-TID PRN (Reason: fever or pain) Qty: 14 RF: 0 cyclobenzaprine 10 mg tablet 10 mg PO TID PRN (Reason: muscle spasm) Qty: 12 RF: 0 amoxicillin-pot clavulanate [Augmentin] 875-125 mg tablet 1 tab PO Q12H Qty: 14 RF: 0 omeprazole 20 mg tablet,delayed release (DR/EC) 20 mg PO BID Qty: 30 RF: 0
[2018-04-17] MEDS: MAG HYDROX/ALUMINUM/SIMETH SUS 20 ML, LIDOCAINE VISCOUS 2% 15 ML PO (18:42)
[2018-04-17] MEDS: PANTOPRAZOLE 40 MG VIAL IV (18:44)
--- NOTE | 2018-04-17 18:44 | CM.SWNOTE ---
ED ICE SKATING COACH Note Presenting Problem: Pt presented to the ED due to stomach pain. This is his 2nd visit to the ED today. He had also been seen at [facility] today. He reported that he was in worse pain which is why he returned. Assessment: It is unclear why pt had not filled some of his medications and not followed up on recommended treatment. According to the PA who spoke with [facility], they have encouraged him to go to pain management. Due tot he fact that [place] is pt's first language, the online drafter assistant has been set up for the provider to use when evaluating pt tonight. Goal: Pt is requesting pain relief. It is not clear what additional services can be provided by ICE SKATING COACH, but remain available if there are additional identified needs. Discharge Planning/Care Management ED Crisis Response Assessment Start: 04/17/18 18:34 Freq: Status: Active Protocol: Document 04/17/18 18:34 BG (Rec: 04/17/18 18:44 BG [id number]) ED Crisis Response Assessment ICE SKATING COACH Assessment Type Other Reason for ICE SKATING COACH Referral Pt is in the ED for the second time today and has been in the ED several times this week . Referred by Dr Heart Presenting Problem Pt has severe stomach pain. He was given a detailed evaluation earlier. He reported that he has ulcers. When asked by QUAHOGGER if he had a PCP, he showed a business card from [facility] and reported that he had been there prior to coming to the ED. He mentioned that he was prescribed medication and showed this SW the pills. Pt stated that when he took the medication the burning was worse. QUAHOGGER mentioned to pt that there was concern that he is given a presription and does not fill it. Pt is [place]er speaking and stated that he brings it to the pharmacist and it is not always filled. Inquired if he was open to having an drafter assistant since [place] is his first language. Online drafter assistant will be avilable for hte doctor when she meets with pt to ensure that nothing is missed due to language. Mental health diagnosis Unknown, but pt has vcome into the ED in the past due to ETOH. VOA/CMS check Yes: not a client. 2 crisis calls in 2017 Suicidal thoughts No Current Suicidal thoughts No Thoughts of harm to others No Relevant Medical History Pt is in pain. He reported stomach pain. He is disabled due to neck and back pain. Pt was hurt on a job and stated that he has metal in his neck from surgery. Additional Comment Pt was n ot in the ED due to behavioral health or substance abuse issues at this time. SW was asked to see him due to recent ED visits.
[2018-04-17 19:22] VITALS: BP 171/84; PULSE 68; RESP 15; O2SAT 98
--- NOTE | 2018-04-17 19:33 | CM.SWNOTE ---
Pt refused the offer of the stamp mounter phone line. It is still not certain that pt is understanding all information. He reported that he is feeling better. He seems to understand that he should not drink. He has been provided information about contacting a pain management clinic and a GI doctor. If pt does have an ulcer, he should be treated by a GI doctor which may prevent the number of recent ED visits. Pt is now wnating to leave and stated that he feels better and is ready for discharge.
== END 2018-04-17 19:40 | disposition home or self-care (01) ==
PROVIDERS: Emergency Provider Emergency Medicine; PCP Family Medicine
DX: R10.9 Unspecified abdominal pain (principal)
CPT/HCPCS: C9113

== ENCOUNTER 2018-04-18 16:01 | Emergency (ER) | payer MEDICARE, MEDICAID, SELFPAY ==
[2018-04-18 16:24] VITALS: BP 182/80; PULSE 82; RESP 13; TEMP 36.8; O2SAT 99
[2018-04-18 17:30] VITALS: BP 173/76; PULSE 71; RESP 21; O2SAT 98
[2018-04-18] MEDS: MAG HYDROX/ALUMINUM/SIMETH SUS 20 ML, LIDOCAINE VISCOUS 2% 15 ML PO (18:07)
--- NOTE | 2018-04-18 18:54 | CM.SWNOTE ---
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 He came today seeking help for neck pain in addition to the stomach distress. Assessment: This time to make sure the issues were not related to language difficulties, the concrete finishing machine operator phone was used by pt's nurse. It was recommended that pt return to his PCP and an appt be set for a pain management provider and a GI specialist. He was encouraged to call the PCP rather than coming to the ED as he is not getting the care he needs here because it is a chroinc situation and needs to be addressed by specialists. Goal: Pt has insurance and has transportation so the hope is that he will follow up with his PCP and with the specialists to whom they will refer. No other SW needs identified.
--- NOTE | 2018-04-18 19:18 | ED_ITS ---
HPI - Abdominal Pain <Beckie Robison PA-C - Last Filed: 04/18/18 22:29> General Chief Complaint: Abdominal Pain Stated Complaint: pain in neck Time Seen by Provider: 04/18/18 18:54 Source: patient Mode of arrival: ambulatory Limitations: no limitations History of Present Illness HPI narrative: This 62-year-old male returns after multiple ED visits, last was yesterday. He states that he continues to have abdominal pain, and also is having pain in his neck. He agrees that the abdominal pain is chronic, no acute changes. GI cocktail helped a little bit yesterday, however the liquid antacid he got [id number] does not help as much. He has not had any new symptoms such as fever or vomiting today. He states that he has 7 plates in his neck and he has chronic neck pain as well. He describes intermittent muscle spasms on both sides of his neck off and on which are bothersome to him. He states that he cannot take muscle relaxants as they seem to have a paradoxical effect ?make me crazy?. He has tried more than 1. He states that he cannot take oral NSAIDs but injections seem to help. He states that opioid medications such as hydrocodone or oxycodone used to help with this pain. He states that the symptoms are chronic intermittent as well. He describes having an KHADAR or some type of injections at a pain clinic a couple of years ago and states the steroids caused side effects. He does not have any acute paresthesia or weakness or other new symptoms today. He did see his PCP yesterday and per them he was referred to a local pain clinic for evaluation. Related Data Home Medications Medication Instructions Recorded Confirmed lisinopril 1 tab PO DAILY 02/07/18 03/20/18 Previous Rx's Medication Instructions Recorded ibuprofen 400 mg PO BID-TID PRN #14 tab 03/19/18 cyclobenzaprine 10 mg PO TID PRN #12 tab 03/22/18 amoxicillin-pot clavulanate 1 tab PO Q12H #14 tab 04/17/18 [Augmentin] omeprazole 20 mg PO BID #30 tab 04/17/18 GI Cocktail 20 ml PO TID PRN #200 ml 04/18/18 GI cocktail 25 ml PO TID PRN #200 ml 04/18/18 hydroxyzine pamoate 25 mg PO Q6-8H PRN #30 cap 04/18/18 Allergies Allergy/AdvReac Type Severity Reaction Status Date / Time acetaminophen [ACETAMINOPHEN] Allergy Mild ITCHING Verified 04/17/18 16:46 lisinopril [LISINOPRIL] Allergy Unknown Verified 04/17/18 16:46 cortisone [CORTISONE] AdvReac Intermediate MADE ME Verified 04/17/18 16:46 VERY HOT AND MADE ME NUTS codeine [CODEINE] AdvReac Mild ITCHY AND Verified 04/17/18 16:46 DIFFICULTY SLEEPING Review of Systems <Beckie Robison PA-C - Last Filed: 04/18/18 22:29> Review of Systems All systems reviewed & are unremarkable except as noted in HPI and below Exam <Beckie Robison PA-C - Last Filed: 04/18/18 22:29> Narrative Exam Narrative: GENERAL APPEARANCE: Patient sleeping comfortably, in no distress. HEENT: PERRL, EOMI, no scleral icterus NECK: Supple LUNGS: Clear to auscultation bilaterally. HEART: Rate and rhythm regular, normal S1 and S2, no S3 or S4. ABDOMEN: Soft, nontender, nondistended with minimal distraction, bowel sounds present x 4 quadrants, no masses palpable EXTREMITIES: No edema DERMATOLOGIC: No jaundice or exanthem NEUROLOGIC: Alert, sensation grossly intact throughout the extremities MUSCULOSKELETAL: No point tenderness over the cervical spine. He is tender and tight at both superior trapezius insertions and the adjoining cervical strap musculature mainly distal. Full range of motion of the neck and upper extremities. Normal sit to stand and gait Initial Vital Signs Initial Vital Signs: Vital Signs Temperature 98.3 F 04/18/18 16:24 Pulse Rate 82 04/18/18 16:24 Respiratory Rate 13 04/18/18 16:24 Blood Pressure 182/80 H 04/18/18 16:24 Pulse Oximetry 99 04/18/18 16:24 <Yuval Henderson DO - Last Filed: 04/18/18 22:49> Initial Vital Signs Initial Vital Signs: Vital Signs Temperature 98.3 F 04/18/18 16:24 Pulse Rate 82 04/18/18 16:24 Respiratory Rate 13 04/18/18 16:24 Blood Pressure 182/80 H 04/18/18 16:24 Pulse Oximetry 99 04/18/18 16:24 Course <Beckie Robison PA-C - Last Filed: 04/18/18 22:29> Additional Information: Patient cannot take oral NSAIDs, muscle relaxants, steroids. He had not tried Vistaril for muscle pain in the past nor for GI symptoms. He seemed to get a little bit of relief with this tonight and was sleeping comfortably at the time of discharge. Toradol has also been helpful in the past as well. GI cocktail did help him somewhat again. He had tried over -the-counter liquid antacid without much relief. Patient has had 4 ED visits in the last 3 days with visits to his PCP in between. He has seen our social worker masters. We have discussed that the symptoms he is seen for tonight are chronic, and he readily agrees with that. We discussed that we are not going to prescribe opioid therapy here, and that long- term management is needed. Advised he certainly can continue Vistaril if it is helpful for his muscle pain, however he should proceed with pain management appointment that he is PCP has planned. In addition, advised to discuss referral to GI for his chronic abdominal pain as he does seem to get some relief with GI cocktail. He was agreeable with this plan. He may benefit from having a regular family service caseworker Orders Ordered: Discontinued Medications Al Hydrox/Mg Hydrox/Simethicone 20 ml/ Lidocaine HCl 15 ml 0 ml PO NOW ONE Stop: 04/18/18 18:06 Last Admin: 04/18/18 18:07 Dose: 45 ml Hydroxyzine HCl (Vistaril) 50 mg IM NOW ONE Stop: 04/18/18 19:09 Last Admin: 04/18/18 19:52 Dose: 50 mg Ketorolac Tromethamine (Toradol) 30 mg IM NOW ONE Stop: 04/18/18 19:09 Last Admin: 04/18/18 19:52 Dose: 30 mg Vital Signs - 8 hr 04/18/18 16:24 04/18/18 17:30 04/18/18 21:41 Temperature 98.3 F Pulse Rate 82 71 62 Respiratory Rate 13 21 Blood Pressure 182/80 H Blood Pressure [Left Arm] 173/76 H 152/82 H Pulse Oximetry 99 98 100 <Yuval Henderson DO - Last Filed: 04/18/18 22:49> Orders Ordered: Discontinued Medications Al Hydrox/Mg Hydrox/Simethicone 20 ml/ Lidocaine HCl 15 ml 0 ml PO NOW ONE Stop: 04/18/18 18:06 Last Admin: 04/18/18 18:07 Dose: 45 ml Hydroxyzine HCl (Vistaril) 50 mg IM NOW ONE Stop: 04/18/18 19:09 Last Admin: 04/18/18 19:52 Dose: 50 mg Ketorolac Tromethamine (Toradol) 30 mg IM NOW ONE Stop: 04/18/18 19:09 Last Admin: 04/18/18 19:52 Dose: 30 mg Vital Signs - 8 hr 04/18/18 16:24 04/18/18 17:30 04/18/18 21:41 Temperature 98.3 F Pulse Rate 82 71 62 Respiratory Rate 13 21 Blood Pressure 182/80 H Blood Pressure [Left Arm] 173/76 H 152/82 H Pulse Oximetry 99 98 100 Discharge Plan Departure Patient Disposition: Home Clinical Impression: Abdominal pain, chronic, generalized, Neck pain, chronic, Acute prostatitis Discharge Date/Time: 04/18/18 21:50 Interventions: ED Discharge Assessment Last Done: 04/18/18 21:48 Activity Restrictions/Additional Instructions: I have given you a prescription for Vistaril (hydroxyzine) pills that we gave you in injectable form tonight since it seemed to help your neck pain and tightness. Sometimes this is used when you are unable to take muscle relaxants as in your case. You should definitely follow up with the pain specialist that you have been referred to by your PCP to talk about chronic pain management for this. The hydroxyzine may also help with your stomach. I have given you a prescription for the ?cocktail? that we use here in the emergency room that has helped your symptoms. You need to have a pharmacist make that for you. Please be sure to follow up with Dr. Ricks to discuss a referral to a stomach specialist, or mechanical manufacturing technician, as you may need further evaluation with a look into your food pipe and stomach areas. Le he dado alfred receta para Vistaril (hidroxizine) pastillas que le dimos en forma inyectable esta noche ya que parec?a ayudar a watts dolor de lynda y la opresi?n. A veces esto se utiliza cuando usted es incapaz de natty relajantes musculares khoa en watts charu. Definitivamente debe hacer un seguimiento con el especialista en dolor al que le chacko referido watts PCP para hablar sobre el manejo del dolor cr?odilia para esto. La hidroxizina tambi?n puede ayudar con el est?franko. Le he dado alfred receta para el c?ctel que usamos aqu? en la maría elena de emergencias que de paz ayudado a lorena s?ntomas. Necesita que un farmac?utico lo yossi para usted. Por favor, aseg?rese de seguir con el Dr. Ricks para discutir alfred derivaci?n a un especialista en el est?franko, o gastroenter?logo, ya que es posible que necesite alfred evaluaci?n adicional con alfred mirada en watts pipa de alimentos y ?reas del est?franko. Prescriptions: New hydroxyzine pamoate 25 mg capsule 25 mg PO Q6-8H PRN (Reason: pain/muscle spasm, nausea) Qty: 30 RF: 0 GI Cocktail 20 ml PO TID PRN (Reason: stomach pain) Qty: 200 RF: 0 GI cocktail 25 ml PO TID PRN (Reason: stomach pain) Qty: 200 RF: 0 No Action lisinopril 20 mg tablet 1 tab PO DAILY RF: 0 ibuprofen 400 mg tablet 400 mg PO BID-TID PRN (Reason: fever or pain) Qty: 14 RF: 0 cyclobenzaprine 10 mg tablet 10 mg PO TID PRN (Reason: muscle spasm) Qty: 12 RF: 0 amoxicillin-pot clavulanate [Augmentin] 875-125 mg tablet 1 tab PO Q12H Qty: 14 RF: 0 omeprazole 20 mg tablet,delayed release (DR/EC) 20 mg PO BID Qty: 30 RF: 0 Referrals: Roby Ricks MD [Physician] - <Yuval Henderson DO - Last Filed: 04/18/18 22:49> Cosign ED Attending Kelvin Attestation: I was available for consultation during this patient's emergency department encounter
[2018-04-18] MEDS: hydrOXYzine 50 MG/ML INJ IM (19:52)
[2018-04-18] MEDS: KETOROLAC 60 MG/2 ML VIAL 30 MG IM (19:52)
[2018-04-18 21:41] VITALS: BP 152/82; PULSE 62; O2SAT 100
== END 2018-04-18 21:50 | disposition home or self-care (01) ==
PROVIDERS: Emergency Provider Internal Medicine; PCP Family Medicine
DX: R10.9 Unspecified abdominal pain (principal); M54.2 Cervicalgia; N41.9 Inflammatory disease of prostate, unspecified
CPT/HCPCS: 96372; 99282; 99283; J1885; J3410

== ENCOUNTER 2018-04-22 07:00 | Emergency (ER) | payer MEDICARE, MEDICAID, SELFPAY ==
[2018-04-22 07:08] VITALS: BP 205/84; PULSE 69; RESP 16; TEMP 36.9; O2SAT 97; BMI 20.9
--- NOTE | 2018-04-22 07:18 | ED.ABDPAIN ---
HPI - Abdominal Pain General Chief Complaint: Abdominal Pain Stated Complaint: abdominal pain Time Seen by Provider: 04/22/18 07:11 Source: patient and old records reviewed Mode of arrival: ambulatory Limitations: no limitations History of Present Illness HPI narrative: Patient is a 62-year-old male presenting with persistent ongoing abdominal pain. He was seen and evaluated multiple times this week he had full workup 6 days ago including blood work and a CT which did show some mild colitis. He returned the evening for worsening pain. He has been given a GI cocktail, Protonix and antibiotics. He continues to have pain no fever feels nauseated no vomiting regular bowel movements. He says he is not taking the antibiotics at some point he was told not to. He is wanting something for pain. MD complaint: abdominal pain Pain Consistency: constant Location: periumbilical Severity: moderate Relieving factors: nothing Exacerbating factors: nothing Related Data Home Medications Medication Instructions Recorded Confirmed lisinopril 1 tab PO DAILY 02/07/18 03/20/18 Previous Rx's Medication Instructions Recorded ibuprofen 400 mg PO BID-TID PRN #14 tab 03/19/18 cyclobenzaprine 10 mg PO TID PRN #12 tab 03/22/18 amoxicillin-pot clavulanate 1 tab PO Q12H #14 tab 04/17/18 [Augmentin] omeprazole 20 mg PO BID #30 tab 04/17/18 GI Cocktail 20 ml PO TID PRN #200 ml 04/18/18 GI cocktail 25 ml PO TID PRN #200 ml 04/18/18 hydroxyzine pamoate 25 mg PO Q6-8H PRN #30 cap 04/18/18 alum-mag hydroxide-simeth [Maalox 10 ml PO Q6H PRN #150 ml 04/22/18 Advanced] Allergies Allergy/AdvReac Type Severity Reaction Status Date / Time acetaminophen [ACETAMINOPHEN] Allergy Mild ITCHING Verified 04/22/18 07:10 lisinopril [LISINOPRIL] Allergy Unknown Verified 04/22/18 07:10 cortisone [CORTISONE] AdvReac Intermediate MADE ME Verified 04/22/18 07:10 VERY HOT AND MADE ME NUTS codeine [CODEINE] AdvReac Mild ITCHY AND Verified 04/22/18 07:10 DIFFICULTY SLEEPING Review of Systems Review of Systems GENERAL: Denies chills, fatigue, malaise, fever, sweats, travel HEENT: Denies sinus pain, ear pain, sore throat, difficulty swallowing, neck pain RESPIRATORY: Denies dyspnea, cough, wheezing, hemoptysis, sputum. CARDIOVASCULAR: Denies chest pain, palpitations, orthopnea, edema GASTROINTESTINAL: See HPI : Denies dysuria, frequency, incontinence, hematuria, urinary retention, flank pain. MUSCULOSKELETAL: Denies weakness, joint pain, or bony pain SKIN: No rash, no erythema, no pruritus NEUROLOGIC: Denies weakness, dizziness, headache, numbness, change in speech, confusion PSYCHIATRIC: No concerning psychosocial issues. 12 point review of systems is negative except for those stated above and HPI [facility] Social History Smoking Status: Current every day smoker alcohol intake: current additional social history: history of alcohol abuse and THC Exam Initial Vital Signs Initial Vital Signs: Vital Signs Temperature 98.4 F 04/22/18 07:08 Pulse Rate 69 04/22/18 07:08 Respiratory Rate 16 04/22/18 07:08 Blood Pressure 205/84 H 04/22/18 07:08 Pulse Oximetry 97 04/22/18 07:08 GENERAL: Well-appearing male alert and oriented x3 HEENT: Head atraumatic,EOMI, pupils reactive, face symmetric, moist mucous membranes CARDIOVASCULAR: Regular rate and rhythm without murmurs, rubs or gallops. RESPIRATORY: Breath sounds equal bilaterally, no wheezes rales or rhonchi. ABDOMEN: Soft, nondistended minimal tenderness periumbilical area no right upper quadrant pain no guarding no rebound EXTREMITIES: Normal range of motion, no clubbing or edema. Neurovascularly intact NEUROLOGICAL: Alert and oriented x4.Normal gait and speech. Cranial nerves II through XII grossly intact. SKIN: Warm, dry, no laceration, no petechiae, no rashes or lesions. Course Orders Ordered: ED Orders 04/22/18 07:50 Complete Blood Count AUTO DIFF Stat Comprehensive Metabolic Panel Stat Lipase Stat Discontinued Medications Al Hydrox/Mg Hydrox/Simethicone 20 ml/ Lidocaine HCl 15 ml 0 ml PO NOW ONE Stop: 04/22/18 07:32 Last Admin: 04/22/18 07:53 Dose: 35 ml Ketorolac Tromethamine (Toradol) 15 mg IV NOW ONE Stop: 04/22/18 08:40 Last Admin: 04/22/18 08:49 Dose: 15 mg Ondansetron HCl (Zofran) 4 mg IV NOW ONE Stop: 04/22/18 07:32 Last Admin: 04/22/18 07:53 Dose: 4 mg Pantoprazole Sodium (Protonix) 40 mg IV NOW ONE Stop: 04/22/18 07:32 Last Admin: 04/22/18 07:53 Dose: 40 mg Vital Signs - 8 hr 04/22/18 07:08 04/22/18 08:01 Temperature 98.4 F Pulse Rate 69 63 Respiratory Rate 16 18 Blood Pressure 205/84 H Blood Pressure [Left Arm] 163/55 H Pulse Oximetry 97 95 MDM - Abdominal Pain Lab Data Attestation: I reviewed the patient's lab results. Result diagrams: 04/22/18 07:50 04/22/18 07:50 Lab Results 04/22/18 04/22/18 Range/Units 07:50 07:50 WBC 8.0 (4.5-11.0) X10^3/uL RBC 3.87 L (4.5-5.9) X10^6/uL Hgb 13.7 (13.5-17.5) g/dL Hct 39.2 L (41-53) % MCV 101.3 H (80-100) fL MCH 35.3 H (26-34) PG MCHC 34.9 (30-36) % RDW 14.3 (11.6-14.8) % Plt Count 340 (150-400) X10^3/uL Neut % (Auto) 69.4 (50-75) % Lymph % (Auto) 21.3 L (25-40) % [place] % (Auto) 7.3 (3-14) % Eos % (Auto) 0.9 L (2-4) % Baso % (Auto) 1.1 (0-2) % Neut # (Auto) 5500 (4510-2656) /uL Lymph # (Auto) 1700 (7523-2521) /uL [place] # (Auto) 600 (0-900) /uL Eos # (Auto) 100 (0-450) /uL Baso # (Auto) 100 (0-100) /uL Sodium 138 (137-145) mmol/L Potassium 3.3 L (3.4-5.1) mmol/L Chloride 98 (98-107) mmol/L Carbon Dioxide 31 (22-32) mmol/L BUN 14 (9-20) mg/dL Creatinine 1.10 (0.66-1.25) mg/dL Estimated GFR > 60.0 (>60) mL/min BUN/Creatinine Ratio 12.7 (6-22) Glucose 134 H (80-110) mg/dL Calcium 8.7 (8.4-10.2) mg/dL Total Bilirubin 0.7 (0.2-1.3) mg/dL AST 32 (17-59) IU/L ALT 27 (21-72) IU/L Alkaline Phosphatase 74 (38-126) U/L Total Protein 7.4 (6.3-8.2) g/dL Albumin 4.1 (3.5-5.0) g/dL Globulin 3.3 (1.7-4.1) g/dL Albumin/Globulin Ratio 1.2 (1.0-2.8) Lipase 91 D (23-300) U/L MDM Narrative Medical decision making narrative: Patient's abdomen is soft slightly tender. Leukocytosis has improved. At this time he does not require repeat imaging. He is given prescription for Maalox. Discharge Plan Departure Patient Disposition: Home Clinical Impression: Abdominal pain Activity Restrictions/Additional Instructions: *You have been diagnosed with abdominal pain, gastric ulcer *What to do: Stop drinking fill prescription *Continue to take medications as directed Maalox 10 mL every 6 hr *Follow up with your primary care provider in 2-3 days *Return to ER if you should have any new, worsening or concerning symptoms Prescriptions: New alum-mag hydroxide-simeth [Maalox Advanced] 200-200-20 mg/5 mL suspension 10 ml PO Q6H PRN (Reason: indigestion) Qty: 150 RF: 0 No Action lisinopril 20 mg tablet 1 tab PO DAILY RF: 0 ibuprofen 400 mg tablet 400 mg PO BID-TID PRN (Reason: fever or pain) Qty: 14 RF: 0 cyclobenzaprine 10 mg tablet 10 mg PO TID PRN (Reason: muscle spasm) Qty: 12 RF: 0 amoxicillin-pot clavulanate [Augmentin] 875-125 mg tablet 1 tab PO Q12H Qty: 14 RF: 0 omeprazole 20 mg tablet,delayed release (DR/EC) 20 mg PO BID Qty: 30 RF: 0 hydroxyzine pamoate 25 mg capsule 25 mg PO Q6-8H PRN (Reason: pain/muscle spasm, nausea) Qty: 30 RF: 0 GI Cocktail 20 ml PO TID PRN (Reason: stomach pain) Qty: 200 RF: 0 GI cocktail 25 ml PO TID PRN (Reason: stomach pain) Qty: 200 RF: 0 Referrals: Roby Ricks MD [Primary Care Provider] -
[2018-04-22 07:45] VITALS: BP 163/84; PULSE 68; RESP 18; O2SAT 98
[2018-04-22] MEDS: PANTOPRAZOLE 40 MG VIAL IV (07:53)
[2018-04-22] MEDS: ONDANSETRON 4 MG/2 ML INJ IV (07:53)
[2018-04-22] MEDS: MAG HYDROX/ALUMINUM/SIMETH SUS 20 ML, LIDOCAINE VISCOUS 2% 15 ML PO (07:53)
--- NOTE | 2018-04-22 07:59 | PC.NURSE ---
pt reports, abdominal pain onset last night, it scared me, gets sweaty. denies vomiting, states, drinks liquor 99cents per bottle. denies injuries/trauma.
[2018-04-22 08:01] VITALS: BP 163/55; PULSE 63; RESP 18; O2SAT 95
[2018-04-22 08:10] LABS: Add Manual Diff / Slide Review NO; Basophils Absolute Auto 100 /uL (0-100); Basophils Percent Auto 1.1 % (0-2); Eosinophils Absolute Auto 100 /uL (0-450); Eosinophils Percent Auto 0.9 % (2-4); Hematocrit 39.2 % (41-53); Hemoglobin 13.7 g/dL (13.5-17.5); Lymphocytes Absolute Auto 1700 /uL (1100-4500); Lymphocytes Percent Auto 21.3 % (25-40); Mean Corpuscular HGB Conc 34.9 % (30-36); Mean Corpuscular Hemoglobin 35.3 PG (26-34); Mean Corpuscular Volume 101.3 fL (80-100); Monocytes Absolute Auto 600 /uL (0-900); Monocytes Percent Auto 7.3 % (3-14); Neutrophils Absolute Auto 5500 /uL (1500-7000); Neutrophils Percent Auto 69.4 % (50-75); Platelet Count 340 X10^3/uL (150-400); Red Blood Cell Count 3.87 X10^6/uL (4.5-5.9); Red Cell Distribution Width 14.3 % (11.6-14.8)
[2018-04-22 08:23] LABS: Alanine Aminotransferase 27 IU/L (21-72); Albumin 4.1 g/dL (3.5-5.0); Albumin Globulin Ratio 1.2 (1.0-2.8); Alkaline Phosphatase 74 U/L (38-126); Aspartate Aminotransferase 32 IU/L (17-59); BUN Creatinine Ratio 12.7 (6-22); Bilirubin Total 0.7 mg/dL (0.2-1.3); Blood Urea Nitrogen 14 mg/dL (9-20); Calcium 8.7 mg/dL (8.4-10.2); Carbon Dioxide 31 mmol/L (22-32); Chloride 98 mmol/L (98-107); Estimated Glomerular Filt Rate > 60.0 mL/min (>60); Globulin 3.3 g/dL (1.7-4.1); Glucose 134 mg/dL (80-110); HEMOLYSIS 17 (0-50); Lipase 91 U/L (23-300); Potassium 3.3 mmol/L (3.4-5.1); Sodium 138 mmol/L (137-145); Total Protein 7.4 g/dL (6.3-8.2)
[2018-04-22] MEDS: KETOROLAC 60 MG/2 ML VIAL 15 MG IV (08:49)
[2018-04-22 09:00] VITALS: BP 174/78; PULSE 68; RESP 16; O2SAT 96
== END 2018-04-22 09:00 | disposition home or self-care (01) ==
LOC: ED 08:48
PROVIDERS: Emergency Provider Emergency Medicine; PCP Internal Medicine
DX: R10.9 Unspecified abdominal pain (principal)
CPT/HCPCS: 36591; 80053; 83690; 85025; 96374; 96375; 99283; 99284; C9113; J1885; J2405

== ENCOUNTER 2018-04-28 12:01 | Emergency (ER) | payer MEDICARE, MEDICAID, SELFPAY ==
[2018-04-28 12:05] VITALS: BP 164/84; PULSE 90; RESP 14; TEMP 36.8; O2SAT 100
--- NOTE | 2018-04-28 13:03 | ED.ABDPAIN ---
HPI - Abdominal Pain <KIMBERLEE Roy - Last Filed: 04/28/18 22:25> General Chief Complaint: Abdominal Pain Stated Complaint: ulcer pain and neck pain Time Seen by Provider: 04/28/18 13:45 Source: patient Mode of arrival: ambulatory Limitations: no limitations History of Present Illness HPI narrative: 62-year-old male with history of chronic abdominal pain and neck pain that has been seen in the emergency room multiple times over the last couple of weeks here for complaint of ongoing abdominal pain and neck pain. He has received multiple workups for his symptoms. He recently seen his primary care provider and received referral for pain management and also for Gastroenterology for scope. There is thought that he has gastric ulcer and has been treated with omeprazole and Maalox. He desires pain medication for his chronic pain. He has been using his omeprazole intermittently and not taking it as prescribed. No nausea vomiting. Positive p.o. intake. He has history of alcohol abuse. He denies any trauma. He has been instructed to limit his alcohol use as this can make his suspected ulcers worse. He states that he has been drinking but he has not drink in the last day. His current pain is consistent with his recent pain characteristics. Patient refused any diagnostics. He desired pain medications only. He was given Vistaril last week IM which seem to have helped. Had discussion about not comfortable with prescribing him narcotic pain medications. Related Data Home Medications Medication Instructions Recorded Confirmed lisinopril 1 tab PO DAILY 02/07/18 03/20/18 nystatin 04/28/18 omeprazole 04/28/18 sucralfate 1 g PO BID 04/28/18 04/28/18 Previous Rx's Medication Instructions Recorded ibuprofen 400 mg PO BID-TID PRN #14 tab 03/19/18 cyclobenzaprine 10 mg PO TID PRN #12 tab 03/22/18 amoxicillin-pot clavulanate 1 tab PO Q12H #14 tab 04/17/18 [Augmentin] omeprazole 20 mg PO BID #30 tab 04/17/18 GI Cocktail 20 ml PO TID PRN #200 ml 04/18/18 GI cocktail 25 ml PO TID PRN #200 ml 04/18/18 hydroxyzine pamoate 25 mg PO Q6-8H PRN #30 cap 04/18/18 alum-mag hydroxide-simeth [Maalox 10 ml PO Q6H PRN #150 ml 04/22/18 Advanced] alum-mag hydroxide-simeth [Maalox 7.5 ml PO QID PRN #355 ml 05/01/18 Maximum Strength] omeprazole magnesium [Prilosec] 10 mg PO DAILY #30 each 05/01/18 ranitidine HCl 150 mg PO BEDTIME #14 cap 05/01/18 Allergies Allergy/AdvReac Type Severity Reaction Status Date / Time acetaminophen [ACETAMINOPHEN] Allergy Mild ITCHING Verified 05/01/18 11:50 lisinopril [LISINOPRIL] Allergy Unknown Verified 05/01/18 11:50 cortisone [CORTISONE] AdvReac Intermediate MADE ME Verified 05/01/18 11:50 VERY HOT AND MADE ME NUTS codeine [CODEINE] AdvReac Mild ITCHY AND Verified 05/01/18 11:50 DIFFICULTY SLEEPING Review of Systems <KIMBERLEE Roy - Last Filed: 04/28/18 22:25> Constitutional Denies chills, Denies fever(s), Denies lethargy and Denies weakness Eyes Denies change in vision, Denies eye discharge, Denies irritation and Denies loss of vision ENT Ears, Nose, Mouth, and Throat: Denies change in voice, Denies neck pain and Denies sore throat Cardiovascular Denies chest pain, Denies irregular heart rhythm, Denies lightheadedness, Denies palpitations, Denies dyspnea, Denies dyspnea on exertion and Denies orthopnea Respiratory Denies cough, Denies dyspnea, Denies dyspnea on exertion and Denies wheezing Gastrointestinal Comments: Chronic abdominal pain Genitourinary Denies hematuria, Denies flank pain, Denies urinary incontinence and Denies urinary urgency Comments: Chronic neck pain Musculoskeletal Denies neck pain Neurologic Denies loss of vision and Denies weakness Psychiatric Reports system reviewed and no additional complaints, except as docu Endocrine Denies palpitations Allergic/Immunologic Denies wheezing Exam <KIMBERLEE Roy - Last Filed: 04/28/18 22:25> Initial Vital Signs Initial Vital Signs: Vital Signs Temperature 98.3 F 04/28/18 12:05 Pulse Rate 90 04/28/18 12:05 Respiratory Rate 14 04/28/18 12:05 Blood Pressure 164/84 H 04/28/18 12:05 Pulse Oximetry 100 04/28/18 12:05 Const General: cooperative and well developed Nutritional Appearance: well nourished Orientation: alert, awake, oriented x3 and not confused [facility] Mouth: oral mucosae normal and moist mucous membranes Throat: posterior oropharynx normal Eyes General: appearance normal, both eyes and all related structures Eyelids: eyelids normal Conjunctivae: conjunctivae normal Sclera: sclerae normal Pupils: PERRL EOM: EOM intact bilaterally Neck Neck: normal visual inspection, trachea midline, No lymphadenopathy, No midline deformity and No JVD Lymphatic: No lymphedema Resp Effort & Inspection: normal respiratory effort, able to speak in complete sentences, no respiratory distress and no use of accessory muscles Auscultation: clear to auscultation bilaterally, no rales, no rhonchi and no wheezes Cardio Rate: regular rate Rhythm: regular rhythm Heart Sounds: no click, no gallops, no murmurs and no rubs Pulses: normal peripheral pulses GI Inspection: non-distended Palpation: soft, no hepatosplenomegaly, No guarding, No pulsatile mass and tender (Generalized tenderness) Auscultation: normal bowel sounds Skin General: no rashes or lesions noted, No jaundice and No petechiae Neuro General: alert, oriented x3, gait normal and no focal motor deficits Speech: speech normal <Timo Brown DO - Last Filed: 05/10/18 03:50> Initial Vital Signs Initial Vital Signs: Vital Signs Temperature 98.3 F 04/28/18 12:05 Pulse Rate 90 04/28/18 12:05 Respiratory Rate 14 04/28/18 12:05 Blood Pressure 164/84 H 04/28/18 12:05 Pulse Oximetry 100 04/28/18 12:05 Course <KIMBERLEE Roy - Last Filed: 04/28/18 22:25> Orders Ordered: Discontinued Medications Al Hydrox/Mg Hydrox/Simethicone 20 ml/ Lidocaine HCl 15 ml 0 ml PO NOW ONE Stop: 04/28/18 14:02 Last Admin: 04/28/18 14:22 Dose: 35 ml Hydroxyzine HCl (Vistaril) 25 mg IM NOW ONE Stop: 04/28/18 14:02 Last Admin: 04/28/18 14:22 Dose: 25 mg Sodium Chloride (Normal Saline 0.9%) 1,000 mls @ 1,000 mls/hr IV BOLUS ONE Stop: 04/28/18 15:06 Last Admin: 04/28/18 14:49 Dose: Not Given Pantoprazole Sodium (Protonix) 40 mg IV NOW ONE Stop: 04/28/18 14:06 Last Admin: 04/28/18 14:22 Dose: Not Given Vital Signs - 8 hr 04/28/18 12:05 04/28/18 13:52 Temperature 98.3 F Pulse Rate 90 59 L Respiratory Rate 14 21 Blood Pressure 164/84 H Blood Pressure [Left Arm] 149/70 H Pulse Oximetry 100 100 <Timo Brown DO - Last Filed: 05/10/18 03:50> Orders Ordered: Discontinued Medications Al Hydrox/Mg Hydrox/Simethicone 20 ml/ Lidocaine HCl 15 ml 0 ml PO NOW ONE Stop: 04/28/18 14:02 Last Admin: 04/28/18 14:22 Dose: 35 ml Hydroxyzine HCl (Vistaril) 25 mg IM NOW ONE Stop: 04/28/18 14:02 Last Admin: 04/28/18 14:22 Dose: 25 mg Sodium Chloride (Normal Saline 0.9%) 1,000 mls @ 1,000 mls/hr IV BOLUS ONE Stop: 04/28/18 15:06 Last Admin: 04/28/18 14:49 Dose: Not Given Pantoprazole Sodium (Protonix) 40 mg IV NOW ONE Stop: 04/28/18 14:06 Last Admin: 04/28/18 14:22 Dose: Not Given Vital Signs - 8 hr 04/28/18 12:05 04/28/18 13:52 Temperature 98.3 F Pulse Rate 90 59 L Respiratory Rate 14 21 Blood Pressure 164/84 H Blood Pressure [Left Arm] 149/70 H Pulse Oximetry 100 100 MDM - Abdominal Pain <KIMBERLEE Roy - Last Filed: 04/28/18 22:25> MDM Narrative Medical decision making narrative: Patient with multiple workups over the past couple weeks in the emergency room. No changes in the characteristics of his pain to his neck or into his abdomen. He refused to have any diagnostics done today. Patient's main concern is receiving pain medications. Had significant conversation with patient about concern about prescribing any narcotic pain medications with his history. He was given Vistaril IM due to prior efficacy and GI cocktail. He is instructed to follow up with primary care provider and Gastroenterology as directed. Continue taking prescribed medications as directed. Continue using Maalox [id number]. Discharge Plan Departure Patient Disposition: Home Clinical Impression: Abdominal pain Discharge Date/Time: 04/28/18 15:22 Interventions: ED Discharge Assessment Last Done: 04/28/18 15:20 Instructions: DI for Abdominal Pain-Adult Activity Restrictions/Additional Instructions: Signs and symptoms presents as chronic abdominal pain and also neck pain. Recommend follow up with Gastroenterology as referred for endoscopy for further evaluation and treatment options. Continue using currently prescribed medications specially the omeprazole and [id number] Maalox. Limit alcohol use. Follow up with pain management as referred. Follow up with primary care provider. Return emergency room for worsening symptoms. Prescriptions: No Action lisinopril 20 mg tablet 1 tab PO DAILY RF: 0 ibuprofen 400 mg tablet 400 mg PO BID-TID PRN (Reason: fever or pain) Qty: 14 RF: 0 cyclobenzaprine 10 mg tablet 10 mg PO TID PRN (Reason: muscle spasm) Qty: 12 RF: 0 amoxicillin-pot clavulanate [Augmentin] 875-125 mg tablet 1 tab PO Q12H Qty: 14 RF: 0 omeprazole 20 mg tablet,delayed release (DR/EC) 20 mg PO BID Qty: 30 RF: 0 hydroxyzine pamoate 25 mg capsule 25 mg PO Q6-8H PRN (Reason: pain/muscle spasm, nausea) Qty: 30 RF: 0 GI Cocktail 20 ml PO TID PRN (Reason: stomach pain) Qty: 200 RF: 0 GI cocktail 25 ml PO TID PRN (Reason: stomach pain) Qty: 200 RF: 0 alum-mag hydroxide-simeth [Maalox Advanced] 200-200-20 mg/5 mL suspension 10 ml PO Q6H PRN (Reason: indigestion) Qty: 150 RF: 0 nystatin 100,000 unit/mL suspension RF: 0 sucralfate 1 gram tablet 1 g PO BID RF: 0 omeprazole 20 mg capsule,delayed release(DR/EC) RF: 0 alum-mag hydroxide-simeth [Maalox Maximum Strength] 400-400-40 mg/5 mL suspension 7.5 ml PO QID PRN (Reason: indigestion) Qty: 355 RF: 0 omeprazole magnesium [Prilosec] 10 mg susp,delayed release for recon 10 mg PO DAILY Qty: 30 RF: 0 ranitidine HCl 150 mg capsule 150 mg PO BEDTIME Qty: 14 RF: 0 Referrals: Roby Ricks MD [Primary Care Provider] - <Timo Brown DO - Last Filed: 05/10/18 03:50> Cosign ED Attending Chloéature Attestation: I was immediately available in the department for consultation. Documentation has been reviewed. I agree with assessment and plan.
[2018-04-28 13:52] VITALS: BP 149/70; PULSE 59; RESP 21; O2SAT 100
[2018-04-28] MEDS: hydrOXYzine 50 MG/ML INJ 25 MG IM (14:22)
[2018-04-28] MEDS: MAG HYDROX/ALUMINUM/SIMETH SUS 20 ML, LIDOCAINE VISCOUS 2% 15 ML PO (14:22)
--- NOTE | 2018-04-28 14:50 | PC.NURSE ---
1425 Patient refuses IV Blood work and IV fluids, protonix. KIMBERLEE centeno.
== END 2018-04-28 15:22 | disposition home or self-care (01) ==
PROVIDERS: Emergency Provider Nurse Practitioner Family; PCP Internal Medicine
DX: R10.9 Unspecified abdominal pain (principal)
CPT/HCPCS: 96372; 99282; 99283; J3410

== ENCOUNTER 2018-05-01 11:38 | Emergency (ER) | payer MEDICARE, MEDICAID, SELFPAY ==
[2018-05-01 11:50] VITALS: BP 148/88; PULSE 81; RESP 20; TEMP 36.8; O2SAT 100; BMI 20.9
[2018-05-01] MEDS: MAG HYDROX/ALUMINUM/SIMETH SUS 20 ML, LIDOCAINE VISCOUS 2% 15 ML PO (14:02)
[2018-05-01] MEDS: PANTOPRAZOLE 20 MG TABLET PO (14:02)
[2018-05-01] MEDS: diphenhydrAMINE 50 MG/ML VIAL IM (14:03)
[2018-05-01 14:09] VITALS: BP 162/75; PULSE 66; RESP 18; O2SAT 100
--- NOTE | 2018-05-14 14:28 | ED_ITS ---
HPI - Abdominal Pain General Chief Complaint: Abdominal Pain Stated Complaint: stomach issues Time Seen by Provider: 05/01/18 13:02 Source: patient Mode of arrival: ambulatory Limitations: no limitations History of Present Illness HPI narrative: Patient complains of left upper quadrant and epigastric pain, which have been bothering him for months. He states that he thinks he will if he does not get somebody to give him pain medication. He states he has not followed up with GI as he has been previously instructed to do multiple times from the emergency department. Patient has an extensive history of ED visits for the same complaint. Patient states the symptoms are unchanged. He has not had any chest pain. No vomiting or diarrhea. No fevers. Related Data Home Medications Medication Instructions Recorded Confirmed lisinopril 1 tab PO DAILY 02/07/18 03/20/18 nystatin 04/28/18 omeprazole 04/28/18 sucralfate 1 g PO BID 04/28/18 04/28/18 Previous Rx's Medication Instructions Recorded ibuprofen 400 mg PO BID-TID PRN #14 tab 03/19/18 cyclobenzaprine 10 mg PO TID PRN #12 tab 03/22/18 amoxicillin-pot clavulanate 1 tab PO Q12H #14 tab 04/17/18 [Augmentin] omeprazole 20 mg PO BID #30 tab 04/17/18 GI Cocktail 20 ml PO TID PRN #200 ml 04/18/18 GI cocktail 25 ml PO TID PRN #200 ml 04/18/18 hydroxyzine pamoate 25 mg PO Q6-8H PRN #30 cap 04/18/18 alum-mag hydroxide-simeth [Maalox 10 ml PO Q6H PRN #150 ml 04/22/18 Advanced] alum-mag hydroxide-simeth [Maalox 7.5 ml PO QID PRN #355 ml 05/01/18 Maximum Strength] omeprazole magnesium [Prilosec] 10 mg PO DAILY #30 each 05/01/18 ranitidine HCl 150 mg PO BEDTIME #14 cap 05/01/18 Allergies Allergy/AdvReac Type Severity Reaction Status Date / Time acetaminophen [ACETAMINOPHEN] Allergy Mild ITCHING Verified 05/01/18 11:50 lisinopril [LISINOPRIL] Allergy Unknown Verified 05/01/18 11:50 cortisone [CORTISONE] AdvReac Intermediate MADE ME Verified 05/01/18 11:50 VERY HOT AND MADE ME NUTS codeine [CODEINE] AdvReac Mild ITCHY AND Verified 05/01/18 11:50 DIFFICULTY SLEEPING Review of Systems Constitutional Denies chills, Denies fever(s), Denies lethargy and Denies weakness Eyes Denies change in vision, Denies eye discharge, Denies irritation and Denies loss of vision ENT Ears, Nose, Mouth, and Throat: Denies change in voice, Denies neck pain and Denies sore throat Cardiovascular Denies chest pain, Denies irregular heart rhythm, Denies lightheadedness, Denies palpitations, Denies dyspnea, Denies dyspnea on exertion and Denies orthopnea Respiratory Denies cough, Denies dyspnea, Denies dyspnea on exertion and Denies wheezing Gastrointestinal Gastrointestinal: Reports abdominal pain, Denies change in bowel habits, Denies diarrhea, Denies nausea and Denies vomiting Genitourinary Denies hematuria, Denies flank pain, Denies urinary incontinence and Denies urinary urgency Musculoskeletal Denies neck pain Integumentary/Breasts Denies pruritus, Denies erythema, Denies rash and Denies wounds Neurologic Denies confusion, Denies loss of vision and Denies weakness Psychiatric Denies anxiety, Denies confusion, Denies depression, Denies homicidal ideation and Denies suicidal ideation Endocrine Denies palpitations Hematologic/Lymphatic Denies easy bruising Allergic/Immunologic Denies wheezing PFSH Medical History Alcoholism (Chronic) Back pain (Chronic) Cervical spine disease (Chronic) Chronic pain syndrome (Chronic) GERD (gastroesophageal reflux disease) (Chronic) Surgical History History of knee surgery (Resolved) History of neck surgery (Resolved ~2008) History of spinal fusion (06/11/14) Status post discectomy (06/11/14) Social History Smoking Status: Current every day smoker alcohol intake: current additional social history: history of alcohol abuse and THC Social History Smoking Status: Current every day smoker alcohol intake: current additional social history: history of alcohol abuse and THC Exam Initial Vital Signs Initial Vital Signs: Vital Signs Temperature 98.2 F 05/01/18 11:50 Pulse Rate 81 05/01/18 11:50 Respiratory Rate 20 05/01/18 11:50 Blood Pressure 148/88 H 05/01/18 11:50 Pulse Oximetry 100 05/01/18 11:50 Const General: cooperative and well developed Nutritional Appearance: well nourished Orientation: alert, awake, oriented x3 and not confused [facility] Head: normocephalic and atraumatic Ears: external ears normal and TM's normal bilaterally Nose: external nose normal and No nasal discharge Face and sinus: sinuses nontender, face symmetric, no sinus tenderness and No dry mucous membranes Mouth: oral mucosae normal and moist mucous membranes Teeth and gingiva: dentition normal Throat: tonsils normal and uvula midline Eyes General: appearance normal, both eyes and all related structures Eyelids: eyelids normal Conjunctivae: conjunctivae normal Sclera: sclerae normal Pupils: PERRL EOM: EOM intact bilaterally Neck Neck: normal visual inspection, trachea midline, No lymphadenopathy, No midline deformity and No JVD Lymphatic: No lymphedema Chest Chest: normal inspection of the chest Resp Effort & Inspection: normal respiratory effort, able to speak in complete sentences, no respiratory distress and no use of accessory muscles Auscultation: clear to auscultation bilaterally, no rales, no rhonchi and no wheezes Cardio Rate: regular rate Rhythm: regular rhythm Heart Sounds: no click, no gallops, no murmurs and no rubs Pulses: normal peripheral pulses GI Inspection: non-distended Palpation: soft, no hepatosplenomegaly, No guarding, No pulsatile mass and tender (Mild, left upper quadrant and epigastrium.) Auscultation: normal bowel sounds Back/Spine/Pelvis Back: No CVA tenderness Cervical Spine: cervical ROM normal and No pain with cervical ROM Thoracic/Lumbar Spine: thoracic and lumbar spine normal to inspection Skin General: no rashes or lesions noted, No jaundice and No petechiae Neuro General: alert, oriented x3, gait normal and no focal motor deficits Speech: speech normal Extrem General: full ROM, no clubbing, cyanosis or edema, no pedal edema and no calf tenderness Psych Appearance: well kempt Mental Status: mental status grossly normal Attitude: cooperative Thought Content: normal and suicidality Judgment: judgment good Course Course Narrative: I did treat this patient symptomatically in the emergency department; however, I have discussed with him that as he has been instructed many times before, he needs to see GI to discuss getting an endoscopy done. I have discussed with him that I will not give him narcotic pain medication, as the patient has not been compliant with followup that will actually be helpful for his condition. No emergent condition is identified today. Patient's symptoms are chronic and are consistent with his ongoing history. Orders Ordered: Discontinued Medications Al Hydrox/Mg Hydrox/Simethicone 20 ml/ Lidocaine HCl 15 ml 0 ml PO NOW ONE Stop: 05/01/18 13:58 Last Admin: 05/01/18 14:02 Dose: 25 ml Diphenhydramine HCl (Benadryl) 50 mg IM NOW ONE Stop: 05/01/18 13:58 Last Admin: 05/01/18 14:03 Dose: 50 mg Pantoprazole Sodium (Protonix) 20 mg PO NOW ONE Stop: 05/01/18 13:58 Last Admin: 05/01/18 14:02 Dose: 20 mg MDM - Abdominal Pain Medical Records Attestation: I reviewed the patient's medical records. Discharge Plan Departure Patient Disposition: Home Clinical Impression: Gastritis, Gastric ulcer Discharge Date/Time: 05/01/18 14:23 Interventions: ED Discharge Assessment Last Done: 05/01/18 14:09 Instructions: DI for Gastritis, DI for Gastric Ulcer Activity Restrictions/Additional Instructions: It is very important that you go see the stomach specialist for your stomach inflammation and probable ulcer. Please take the stomach medicine that we have given you to help with your symptoms. Call tomorrow morning to make an appointment with the stomach specialists and Chano Corley. Prescriptions: New alum-mag hydroxide-simeth [Maalox Maximum Strength] 400-400-40 mg/5 mL suspension 7.5 ml PO QID PRN (Reason: indigestion) Qty: 355 RF: 0 omeprazole magnesium [Prilosec] 10 mg susp,delayed release for recon 10 mg PO DAILY Qty: 30 RF: 0 No Action lisinopril 20 mg tablet 1 tab PO DAILY RF: 0 ibuprofen 400 mg tablet 400 mg PO BID-TID PRN (Reason: fever or pain) Qty: 14 RF: 0 cyclobenzaprine 10 mg tablet 10 mg PO TID PRN (Reason: muscle spasm) Qty: 12 RF: 0 amoxicillin-pot clavulanate [Augmentin] 875-125 mg tablet 1 tab PO Q12H Qty: 14 RF: 0 omeprazole 20 mg tablet,delayed release (DR/EC) 20 mg PO BID Qty: 30 RF: 0 hydroxyzine pamoate 25 mg capsule 25 mg PO Q6-8H PRN (Reason: pain/muscle spasm, nausea) Qty: 30 RF: 0 GI Cocktail 20 ml PO TID PRN (Reason: stomach pain) Qty: 200 RF: 0 GI cocktail 25 ml PO TID PRN (Reason: stomach pain) Qty: 200 RF: 0 alum-mag hydroxide-simeth [Maalox Advanced] 200-200-20 mg/5 mL suspension 10 ml PO Q6H PRN (Reason: indigestion) Qty: 150 RF: 0 nystatin 100,000 unit/mL suspension RF: 0 sucralfate 1 gram tablet 1 g PO BID RF: 0 omeprazole 20 mg capsule,delayed release(DR/EC) RF: 0 ranitidine HCl 150 mg capsule 150 mg PO BEDTIME Qty: 14 RF: 0 Referrals: [facility] Gastroenterology [Provider Group] (Please call tomorrow to set up an appointment.) Roby Ricks MD [Primary Care Provider] -
== END 2018-05-01 14:23 | disposition home or self-care (01) ==
PROVIDERS: Emergency Provider Emergency Medicine; PCP Internal Medicine
DX: R10.9 Unspecified abdominal pain (principal)
CPT/HCPCS: J1200

== ENCOUNTER 2018-05-01 16:59 | Emergency (ER) | payer MEDICARE, MEDICAID, SELFPAY ==
[2018-05-01 17:35] VITALS: BP 145/86; PULSE 90; RESP 20; TEMP 37; O2SAT 100
--- NOTE | 2018-05-01 18:11 | PC.NURSE ---
pt keeps asking to help him but he has been here and evaluated once today, he keeps sayingI'm dying I'm dying what can you give me?. I've explained several times to him that his vital signs are stable and I am unable to give him anything until the provider see's him.
--- NOTE | 2018-05-01 18:29 | ED.ABDPAIN ---
HPI - Abdominal Pain General Chief Complaint: Abdominal Pain Stated Complaint: stomach pain Time Seen by Provider: 05/01/18 18:00 Source: patient and old records reviewed Mode of arrival: ambulatory Limitations: no limitations History of Present Illness HPI narrative: Patient is a 62-year-old male who has with abdominal pain. He has frequent visits to the emergency department he was seen earlier today was actually seen at [facility] yesterday. It is thought that he has a gastric ulcer due to alcohol. He says he sometimes nauseous but mostly here for pain. Earlier today he was given Benadryl IM a GI cocktail and Protonix. He last had blood work here on the 22 of April. Before that he had abdominal CT which showed some colitis. He stop taking his antibiotics. He is afebrile. he was at [facility] on April 29 [address] a CT and blood work which was essentially negative. Related Data Home Medications Medication Instructions Recorded Confirmed lisinopril 1 tab PO DAILY 02/07/18 03/20/18 nystatin 04/28/18 omeprazole 04/28/18 sucralfate 1 g PO BID 04/28/18 04/28/18 Previous Rx's Medication Instructions Recorded ibuprofen 400 mg PO BID-TID PRN #14 tab 03/19/18 cyclobenzaprine 10 mg PO TID PRN #12 tab 03/22/18 amoxicillin-pot clavulanate 1 tab PO Q12H #14 tab 04/17/18 [Augmentin] omeprazole 20 mg PO BID #30 tab 04/17/18 GI Cocktail 20 ml PO TID PRN #200 ml 04/18/18 GI cocktail 25 ml PO TID PRN #200 ml 04/18/18 hydroxyzine pamoate 25 mg PO Q6-8H PRN #30 cap 04/18/18 alum-mag hydroxide-simeth [Maalox 10 ml PO Q6H PRN #150 ml 04/22/18 Advanced] alum-mag hydroxide-simeth [Maalox 7.5 ml PO QID PRN #355 ml 05/01/18 Maximum Strength] omeprazole magnesium [Prilosec] 10 mg PO DAILY #30 each 05/01/18 ranitidine HCl 150 mg PO BEDTIME #14 cap 05/01/18 Allergies Allergy/AdvReac Type Severity Reaction Status Date / Time acetaminophen [ACETAMINOPHEN] Allergy Mild ITCHING Verified 05/01/18 11:50 lisinopril [LISINOPRIL] Allergy Unknown Verified 05/01/18 11:50 cortisone [CORTISONE] AdvReac Intermediate MADE ME Verified 05/01/18 11:50 VERY HOT AND MADE ME NUTS codeine [CODEINE] AdvReac Mild ITCHY AND Verified 05/01/18 11:50 DIFFICULTY SLEEPING Review of Systems Review of Systems GENERAL: Denies chills, fatigue, malaise, fever, sweats, travel HEENT: Denies sinus pain, ear pain, sore throat, difficulty swallowing, neck pain RESPIRATORY: Denies dyspnea, cough, wheezing, hemoptysis, sputum. CARDIOVASCULAR: Denies chest pain, palpitations, orthopnea, edema GASTROINTESTINAL: See HPI : Denies dysuria, frequency, incontinence, hematuria, urinary retention, flank pain. MUSCULOSKELETAL: Denies weakness, joint pain, or bony pain SKIN: No rash, no erythema, no pruritus NEUROLOGIC: Denies weakness, dizziness, headache, numbness, change in speech, confusion PSYCHIATRIC: No concerning psychosocial issues. 12 point review of systems is negative except for those stated above and HPI [facility] Social History Smoking Status: Current every day smoker alcohol intake: current additional social history: history of alcohol abuse and THC Exam Initial Vital Signs Initial Vital Signs: Vital Signs Temperature 98.6 F 05/01/18 17:35 Pulse Rate 90 05/01/18 17:35 Respiratory Rate 20 05/01/18 17:35 Blood Pressure 145/86 H 05/01/18 17:35 Pulse Oximetry 100 05/01/18 17:35 GENERAL: patient holding his left upper quadrant appears well but complaining of pain HEENT: Head atraumatic,EOMI, pupils reactive, neck is supple moist mucous membranes CARDIOVASCULAR: Regular rate and rhythm without murmurs, rubs or gallops. RESPIRATORY: Breath sounds equal bilaterally, no wheezes rales or rhonchi. ABDOMEN: Soft, slight tenderness left upper quadrant no distension no guarding no rebound EXTREMITIES: Normal range of motion, no clubbing or edema. Neurovascularly intact NEUROLOGICAL: Alert and oriented x4.Normal gait and speech. Cranial nerves II through XII grossly intact. SKIN: Warm, dry, no laceration, no petechiae, no rashes or lesions. Course Orders Ordered: ED Orders 05/01/18 18:32 XR acute abdomen series Stat Discontinued Medications Haloperidol (Haldol) 2 mg PO NOW ONE Stop: 05/01/18 18:31 Last Admin: 05/01/18 18:47 Dose: 2 mg Ranitidine HCl (Zantac) 300 mg PO NOW ONE Stop: 05/01/18 18:28 Last Admin: 05/01/18 18:46 Dose: 300 mg Vital Signs - 8 hr 05/01/18 19:02 05/01/18 19:52 Temperature 98.1 F Pulse Rate 73 86 Respiratory Rate 18 20 Blood Pressure 137/64 Blood Pressure [Left Arm] 130/73 Pulse Oximetry [address] [facility] - Abdominal Pain Medical Records Attestation: I reviewed the patient's medical records. Imaging Data Abdominal x-ray: Radiologist's impression: PROCEDURE: XR ACUTE ABDOMEN SERIES INDICATIONS: abdominal pain TECHNIQUE: One view chest and two views of the abdomen were acquired. COMPARISON: [facility], CT, CT ABDOMEN PELVIS WITH CONTRAST, 04/29/2018, 14:17. FINDINGS: Surgical changes and devices: Partially imaged surgical fusion hardware from ACD[facility] of the lower cervical spine. Chest: Lungs are clear. Heart size is normal. No pleural effusions. No pneumoperitoneum. Abdomen: Bowel gas pattern is normal. No suspicious calcifications. Visualized solid organ contours appear normal. Oral contrast has transited within the abdomen with contrast noted in the rectum. Bones: No suspicious bony lesions. IMPRESSION: Abdomen and chest without acute radiographic abnormalities. Dictated by: Dorian Santiago M.D. on 05/01/2018 at 19:4 MDM Narrative Medical decision making narrative: the patient apparently has appointment with GI but not until next month. He has frequent ER visits both [facility] and [facility]. He had a complete workup with blood work and abdominal CT is 2 days prior. The patient is known to be noncompliant with medication. The pain minimally improved after the ranitidine and Haldol. He is ambulatory to the restroom without any difficulty. there is no sign of of free air on x-ray his abdomen is soft but tender on the left upper side where he is constantly tender. At this time I suspect this is patient's chronic ongoing pain. He truly does need a GI evaluation. Discharge Plan Departure Patient Disposition: Home Clinical Impression: Gastric ulcer Discharge Date/Time: 05/01/18 19:55 Interventions: ED Discharge Assessment Last Done: 05/01/18 19:52 Instructions: DI for Gastric Ulcer Activity Restrictions/Additional Instructions: *You have been diagnosed with gastric ulcer *What to do: stop drinking alcohol you need a GI doctor *Continue to take medications as directed ranitidine 150 mg once a day in addition to omeprazole twice daily *Follow up with your primary care provider in 2-3 days *Return to ER if you should have any new, worsening or concerning symptoms Prescriptions: New ranitidine HCl 150 mg capsule 150 mg PO BEDTIME Qty: 14 RF: 0 No Action lisinopril 20 mg tablet 1 tab PO DAILY RF: 0 ibuprofen 400 mg tablet 400 mg PO BID-TID PRN (Reason: fever or pain) Qty: 14 RF: 0 cyclobenzaprine 10 mg tablet 10 mg PO TID PRN (Reason: muscle spasm) Qty: 12 RF: 0 amoxicillin-pot clavulanate [Augmentin] 875-125 mg tablet 1 tab PO Q12H Qty: 14 RF: 0 omeprazole 20 mg tablet,delayed release (DR/EC) 20 mg PO BID Qty: 30 RF: 0 hydroxyzine pamoate 25 mg capsule 25 mg PO Q6-8H PRN (Reason: pain/muscle spasm, nausea) Qty: 30 RF: 0 GI Cocktail 20 ml PO TID PRN (Reason: stomach pain) Qty: 200 RF: 0 GI cocktail 25 ml PO TID PRN (Reason: stomach pain) Qty: 200 RF: 0 alum-mag hydroxide-simeth [Maalox Advanced] 200-200-20 mg/5 mL suspension 10 ml PO Q6H PRN (Reason: indigestion) Qty: 150 RF: 0 nystatin 100,000 unit/mL suspension RF: 0 sucralfate 1 gram tablet 1 g PO BID RF: 0 omeprazole 20 mg capsule,delayed release(DR/EC) RF: 0 alum-mag hydroxide-simeth [Maalox Maximum Strength] 400-400-40 mg/5 mL suspension 7.5 ml PO QID PRN (Reason: indigestion) Qty: 355 RF: 0 omeprazole magnesium [Prilosec] 10 mg susp,delayed release for recon 10 mg PO DAILY Qty: 30 RF: 0 Referrals: Roby Ricks MD [Primary Care Provider] -
--- NOTE | 2018-05-01 18:32 | ED_ITS ---
HPI - Abdominal Pain General Chief Complaint: Abdominal Pain Stated Complaint: stomach pain Time Seen by Provider: 05/01/18 18:00 Source: patient and old records reviewed Mode of arrival: ambulatory Limitations: no limitations History of Present Illness HPI narrative: Patient is a 62-year-old male who has with abdominal pain. He has frequent visits to the emergency department he was seen earlier today was actually seen at [facility] yesterday. It is thought that he has a gastric ulcer due to alcohol. He says he sometimes nauseous but mostly here for pain. Earlier today he was given Benadryl IM a GI cocktail and Protonix. He last had blood work here on the 22 of April. Before that he had abdominal CT which showed some colitis. He stop taking his antibiotics. He is afebrile. he was at [facility] on April 29 [address] he had a CT and blood work which was essentially negative. Related Data Home Medications Medication Instructions Recorded Confirmed lisinopril 1 tab PO DAILY 02/07/18 03/20/18 nystatin 04/28/18 omeprazole 04/28/18 sucralfate 1 g PO BID 04/28/18 04/28/18 Previous Rx's Medication Instructions Recorded ibuprofen 400 mg PO BID-TID PRN #14 tab 03/19/18 cyclobenzaprine 10 mg PO TID PRN #12 tab 03/22/18 amoxicillin-pot clavulanate 1 tab PO Q12H #14 tab 04/17/18 [Augmentin] omeprazole 20 mg PO BID #30 tab 04/17/18 GI Cocktail 20 ml PO TID PRN #200 ml 04/18/18 GI cocktail 25 ml PO TID PRN #200 ml 04/18/18 hydroxyzine pamoate 25 mg PO Q6-8H PRN #30 cap 04/18/18 alum-mag hydroxide-simeth [Maalox 10 ml PO Q6H PRN #150 ml 04/22/18 Advanced] alum-mag hydroxide-simeth [Maalox 7.5 ml PO QID PRN #355 ml 05/01/18 Maximum Strength] omeprazole magnesium [Prilosec] 10 mg PO DAILY #30 each 05/01/18 ranitidine HCl 150 mg PO BEDTIME #14 cap 05/01/18 Allergies Allergy/AdvReac Type Severity Reaction Status Date / Time acetaminophen [ACETAMINOPHEN] Allergy Mild ITCHING Verified 05/01/18 11:50 lisinopril [LISINOPRIL] Allergy Unknown Verified 05/01/18 11:50 cortisone [CORTISONE] AdvReac Intermediate MADE ME Verified 05/01/18 11:50 VERY HOT AND MADE ME NUTS codeine [CODEINE] AdvReac Mild ITCHY AND Verified 05/01/18 11:50 DIFFICULTY SLEEPING Review of Systems Review of Systems GENERAL: Denies chills, fatigue, malaise, fever, sweats, travel HEENT: Denies sinus pain, ear pain, sore throat, difficulty swallowing, neck pain RESPIRATORY: Denies dyspnea, cough, wheezing, hemoptysis, sputum. CARDIOVASCULAR: Denies chest pain, palpitations, orthopnea, edema GASTROINTESTINAL: See HPI : Denies dysuria, frequency, incontinence, hematuria, urinary retention, flank pain. MUSCULOSKELETAL: Denies weakness, joint pain, or bony pain SKIN: No rash, no erythema, no pruritus NEUROLOGIC: Denies weakness, dizziness, headache, numbness, change in speech, confusion PSYCHIATRIC: No concerning psychosocial issues. 12 point review of systems is negative except for those stated above and HPI [facility] Social History Smoking Status: Current every day smoker alcohol intake: current additional social history: history of alcohol abuse and THC Exam Initial Vital Signs Initial Vital Signs: Vital Signs Temperature 98.6 F 05/01/18 17:35 Pulse Rate 90 05/01/18 17:35 Respiratory Rate 20 05/01/18 17:35 Blood Pressure 145/86 H 05/01/18 17:35 Pulse Oximetry 100 05/01/18 17:35 GENERAL: patient holding his left upper quadrant appears well but complaining of pain HEENT: Head atraumatic,EOMI, pupils reactive, neck is supple moist mucous membranes CARDIOVASCULAR: Regular rate and rhythm without murmurs, rubs or gallops. RESPIRATORY: Breath sounds equal bilaterally, no wheezes rales or rhonchi. ABDOMEN: Soft, slight tenderness left upper quadrant no distension no guarding no rebound EXTREMITIES: Normal range of motion, no clubbing or edema. Neurovascularly intact NEUROLOGICAL: Alert and oriented x4.Normal gait and speech. Cranial nerves II through XII grossly intact. SKIN: Warm, dry, no laceration, no petechiae, no rashes or lesions. Course Orders Ordered: ED Orders 05/01/18 18:32 XR acute abdomen series Stat Discontinued Medications Haloperidol (Haldol) 2 mg PO NOW ONE Stop: 05/01/18 18:31 Last Admin: 05/01/18 18:47 Dose: 2 mg Ranitidine HCl (Zantac) 300 mg PO NOW ONE Stop: 05/01/18 18:28 Last Admin: 05/01/18 18:46 Dose: 300 mg Vital Signs - 8 hr 05/01/18 19:02 05/01/18 19:52 Temperature 98.1 F Pulse Rate 73 86 Respiratory Rate 18 20 Blood Pressure 137/64 Blood Pressure [Left Arm] 130/73 Pulse Oximetry 100 100 [facility] - Abdominal Pain Medical Records Attestation: I reviewed the patient's medical records. Imaging Data Abdominal x-ray: Radiologist's impression: PROCEDURE: XR ACUTE ABDOMEN SERIES INDICATIONS: abdominal pain TECHNIQUE: One view chest and two views of the abdomen were acquired. COMPARISON: [facility], CT, CT ABDOMEN PELVIS WITH CONTRAST, 2018, 14:17. FINDINGS: Surgical changes and devices: Partially imaged surgical fusion hardware from ACDF of the lower cervical spine. Chest: Lungs are clear. Heart size is normal. No pleural effusions. No pneumoperitoneum. Abdomen: Bowel gas pattern is normal. No suspicious calcifications. Visualized solid organ contours appear normal. Oral contrast has transited within the abdomen with contrast noted in the rectum. Bones: No suspicious bony lesions. IMPRESSION: Abdomen and chest without acute radiographic abnormalities. Dictated by: Dorian Santiago M.D. on 05/01/2018 at 19:4 MDM Narrative Medical decision making narrative: the patient apparently has appointment with GI but not until next month. He has frequent ER visits both [facility] and [facility]. He had a complete workup with blood work and abdominal CT is 2 days prior. The patient is known to be noncompliant with medication. The pain minimally improved after the ranitidine and Haldol. He is ambulatory to the restroom without any difficulty. there is no sign of of free air on x-ray his abdomen is soft but tender on the left upper side where he is constantly tender. At this time I suspect this is patient's chronic ongoing pain. He truly does need a GI evaluation. Discharge Plan Departure Patient Disposition: Home Clinical Impression: Gastric ulcer Discharge Date/Time: 05/01/18 19:55 Interventions: ED Discharge Assessment Last Done: 05/01/18 19:52 Instructions: DI for Gastric Ulcer Activity Restrictions/Additional Instructions: *You have been diagnosed with gastric ulcer *What to do: stop drinking alcohol you need a GI doctor *Continue to take medications as directed ranitidine 150 mg once a day in addition to omeprazole twice daily *Follow up with your primary care provider in 2-3 days *Return to ER if you should have any new, worsening or concerning symptoms Prescriptions: New ranitidine HCl 150 mg capsule 150 mg PO BEDTIME Qty: 14 RF: 0 No Action lisinopril 20 mg tablet 1 tab PO DAILY RF: 0 ibuprofen 400 mg tablet 400 mg PO BID-TID PRN (Reason: fever or pain) Qty: 14 RF: 0 cyclobenzaprine 10 mg tablet 10 mg PO TID PRN (Reason: muscle spasm) Qty: 12 RF: 0 amoxicillin-pot clavulanate [Augmentin] 875-125 mg tablet 1 tab PO Q12H Qty: 14 RF: 0 omeprazole 20 mg tablet,delayed release (DR/EC) 20 mg PO BID Qty: 30 RF: 0 hydroxyzine pamoate 25 mg capsule 25 mg PO Q6-8H PRN (Reason: pain/muscle spasm, nausea) Qty: 30 RF: 0 GI Cocktail 20 ml PO TID PRN (Reason: stomach pain) Qty: 200 RF: 0 GI cocktail 25 ml PO TID PRN (Reason: stomach pain) Qty: 200 RF: 0 alum-mag hydroxide-simeth [Maalox Advanced] 200-200-20 mg/5 mL suspension 10 ml PO Q6H PRN (Reason: indigestion) Qty: 150 RF: 0 nystatin 100,000 unit/mL suspension RF: 0 sucralfate 1 gram tablet 1 g PO BID RF: 0 omeprazole 20 mg capsule,delayed release(DR/EC) RF: 0 alum-mag hydroxide-simeth [Maalox Maximum Strength] 400-400-40 mg/5 mL suspension 7.5 ml PO QID PRN (Reason: indigestion) Qty: 355 RF: 0 omeprazole magnesium [Prilosec] 10 mg susp,delayed release for recon 10 mg PO DAILY Qty: 30 RF: 0 Referrals: Roby Ricks MD [Primary Care Provider] -
[2018-05-01] MEDS: HALOPERIDOL 5 MG TABLET 2 MG PO (18:47)
[2018-05-01 19:02] VITALS: BP 130/73; PULSE 73; RESP 18; O2SAT 100
[2018-05-01 19:52] VITALS: BP 137/64; PULSE 86; RESP 20; TEMP 36.7; O2SAT 100
== END 2018-05-01 19:55 | disposition home or self-care (01) ==
PROVIDERS: Emergency Provider Emergency Medicine; PCP Internal Medicine
DX: K25.9 Gastric ulcer, unspecified as acute or chronic, without hemorrhage or perforation (principal)
CPT/HCPCS: 74022; 99282; 99283; J1200

== ENCOUNTER 2018-07-17 11:45 | Emergency (ER) | payer OTHER, MEDICAID, SELFPAY ==
[2018-07-17 11:54] VITALS: BP 182/109; PULSE 115; RESP 19; TEMP 36.9; O2SAT 96; BMI 22.3
--- NOTE | 2018-07-17 12:13 | ED_ITS ---
HPI - General Adult <Beckie Robison PA-C - Last Filed: 07/17/18 20:51> General Chief complaint: Toxicology Problem Stated complaint: says having withdrawls from Suboxone Time Seen by Provider: 07/17/18 12:08 Source: patient Mode of arrival: ambulatory Limitations: no limitations History of Present Illness HPI narrative: Kye Returns to ED today with complaints of opioid withdrawal. He states this is from Suboxone. He states that he had been taking this regularly from a pain Medicine prescriber in [place] or [place], can't remember whom, and was running out, so reduce the dose to 1 tab for the last few days. He states that since then, he has been feeling shaky all over, panicky and jittery. He states he had 1 episode of vomiting this morning, otherwise none and has been able to keep down fluids. He denies any bowel habit changes. He denies feeling sick like a fever, chest pain or breathing difficulties. He states that his roommate brought him here, and he did not call the prescriber due to ?my head not being right, states that he feels fuzzy headed. State controlled substances database shows that patient had been prescribing weekly buphenorphine or Suboxone until a month ago Related Data Home Medications Medication Instructions Recorded Confirmed sucralfate 1 g PO BID 04/28/18 07/17/18 buprenorphine-naloxone 0.5 film SUBLINGUAL DAILYX7 07/17/18 07/17/18 buspirone 7.5 mg PO TID 07/17/18 07/17/18 hydrocodone-acetaminophen 1 tab PO BID 07/17/18 07/17/18 hydroxyzine pamoate 50 mg PO TID 07/17/18 07/17/18 ibuprofen 600 mg PO TID 07/17/18 07/17/18 lisinopril 20 mg PO DAILY 07/17/18 07/17/18 omeprazole 40 mg PO DAILY 07/17/18 07/17/18 Previous Rx's Medication Instructions Recorded hydroxyzine pamoate [Vistaril] 50 mg PO Q6-8H PRN #20 cap 07/17/18 Allergies Allergy/AdvReac Type Severity Reaction Status Date / Time acetaminophen [ACETAMINOPHEN] Allergy Mild ITCHING Verified 05/01/18 11:50 lisinopril [LISINOPRIL] Allergy Unknown Verified 05/01/18 11:50 cortisone [CORTISONE] AdvReac Intermediate MADE ME Verified 05/01/18 11:50 VERY HOT AND MADE ME NUTS codeine [CODEINE] AdvReac Mild ITCHY AND Verified 05/01/18 11:50 DIFFICULTY SLEEPING Review of Systems <Beckie Robison PA-C - Last Filed: 07/17/18 20:51> Review of Systems ROS Unobtainable: All systems reviewed & are unremarkable except as noted in HPI and below PFSH <Beckie Robison PA-C - Last Filed: 07/17/18 20:51> Medical History Alcoholism (Chronic) Back pain (Chronic) Cervical spine disease (Chronic) Chronic pain syndrome (Chronic) GERD (gastroesophageal reflux disease) (Chronic) Surgical History History of knee surgery (Resolved) History of neck surgery (Resolved ~2008) History of spinal fusion (06/11/14) Status post discectomy (06/11/14) Social History Smoking Status: Current every day smoker alcohol intake: current additional social history: history of alcohol abuse and THC Social History Smoking Status: Current every day smoker alcohol intake: current additional social history: history of alcohol abuse and THC Exam <Beckie Robison PA-C - Last Filed: 07/17/18 20:51> Narrative Exam Narrative: GENERAL APPEARANCE: Patient sitting comfortably, in no distress. HEENT: PERRL, EOMI, no scleral icterus NECK: Supple LUNGS: Clear to auscultation bilaterally. HEART: Rate and rhythm regular, normal S1 and S2, no S3 or S4. ABDOMEN: Soft, nontender, nondistended, bowel sounds present x 4 quadrants, no masses palpable EXTREMITIES: No edema DERMATOLOGIC: No jaundice or exanthem NEUROLOGIC: Alert, normal coordination, speech is tangential but at baseline, no tremulousness noted with distraction Initial Vital Signs Initial Vital Signs: Vital Signs Temperature 98.5 F 07/17/18 11:54 Pulse Rate 115 H 07/17/18 11:54 Respiratory Rate 19 07/17/18 11:54 Blood Pressure 182/109 H 07/17/18 11:54 Pulse Oximetry 96 07/17/18 11:54 <Yuval Henderson DO - Last Filed: 07/18/18 07:17> Initial Vital Signs Initial Vital Signs: Vital Signs Temperature 98.5 F 07/17/18 11:54 Pulse Rate 115 H 07/17/18 11:54 Respiratory Rate 19 07/17/18 11:54 Blood Pressure 182/109 H 07/17/18 11:54 Pulse Oximetry 96 07/17/18 11:54 Course <Beckie Robison PA-C - Last Filed: 07/17/18 20:51> Additional Information: Patient was resting comfortably in reported feeling improved after Vistaril injection. He has taken this previously. Prescription was sent in. He does not want to follow up with pain prescriber so advised follow-up with PCP this week and he agrees. Orders Ordered: Discontinued Medications Hydroxyzine HCl (Vistaril) 50 mg IM NOW ONE Stop: 07/17/18 12:23 Last Admin: 07/17/18 12:34 Dose: 50 mg Vital Signs - 8 hr 07/17/18 13:55 Pulse Rate 79 Respiratory Rate 18 Blood Pressure [Left Arm] 127/65 Pulse Oximetry 99 <Yuval Henderson DO - Last Filed: 07/18/18 07:17> Orders Ordered: Discontinued Medications Hydroxyzine HCl (Vistaril) 50 mg IM NOW ONE Stop: 07/17/18 12:23 Last Admin: 07/17/18 12:34 Dose: 50 mg Vital Signs - 8 hr 07/17/18 13:55 Pulse Rate 79 Respiratory Rate 18 Blood Pressure [Left Arm] 127/65 Pulse Oximetry 99 Discharge Plan Departure Patient Disposition: Home Clinical Impression: Anxiety Drug withdrawal Qualifiers: Substance type: opioid Qualified Code(s): F11.23 - Opioid dependence with withdrawal Discharge Date/Time: 07/17/18 14:03 Interventions: ED Discharge Assessment Last Done: 07/17/18 14:03 Instructions: DI for Anxiety -- Adult, DI for Drug or Alcohol Withdrawal Activity Restrictions/Additional Instructions: I think it is unlikely that you are having serious drug withdrawal symptoms given that you were taking Suboxone at such a small dose, and as we talked about, your symptoms could be at least partially related to anxiety. The state records show that you have not received prescriptions for any opioids since last month, but if you were saving them and taking them more sporadically this might contribute to your symptoms. I have given you a prescription for hydroxyzine to take as needed since you are feeling better with it today. The this should help with the shakes and anxiety as well as nausea. Continue to drink clear fluids and eat small amounts of bland food every hour or 2 to help with the nausea. Please call [facility] today and let them know you were seen in the ED as you need to follow-up there in the next few days before you run out of the medicine I prescribed for you. Creo que es poco probable que tenga s?ntomas graves de abstinencia del f?rmaco, ya que estaba tomando Suboxone en alfred dosis lobo miladys?a y, khoa ya comentamos, lorena s?ntomas podr?an estar relacionados, al menos parcialmente, con la ansiedad. Los registros estatales muestran que no de paz recibido recetas para rosa?n opioide desde el mes pasado, caleb si las guardaba y las tomaba m?s espor?dicamente, esto podr?a contribuir a lorena s?ntomas. Le he dado alfred receta para que tome hydroxyzi ne seg?n sea necesario ya que se siente mejor con mika hoy. [place] deber?a ayudar con los temblores y la ansiedad, as? khoa las n?useas. Contin?e bebiendo l?quidos jyotsna y coma miladys?as cantidades de alimentos blandos cada hora o 2 para ayudar con la n?usea. Llame a [facility] hoy mismo y h?geni saber que fue atendido en el servicio de urgencias ya que necesita un seguimiento en los pr?ximos d?as antes de que se le acabe el medicamento que le recet?. Prescriptions: New hydroxyzine pamoate [Vistaril] 25 mg capsule 50 mg PO Q6-8H PRN (Reason: shaking/withdrawal) Qty: 20 RF: 0 No Action sucralfate 1 gram tablet 1 g PO BID RF: 0 hydrocodone-acetaminophen 5-325 mg tablet 1 tab PO BID RF: 0 hydroxyzine pamoate 50 mg capsule 50 mg PO TID RF: 0 omeprazole 40 mg capsule,delayed release(DR/EC) 40 mg PO DAILY RF: 0 buspirone 7.5 mg tablet 7.5 mg PO TID RF: 0 ibuprofen 600 mg tablet 600 mg PO TID RF: 0 buprenorphine-naloxone 8-2 mg film 0.5 film Sublingual DAILYX7 RF: 0 lisinopril 20 mg Tablet 20 mg PO DAILY RF: 0 Referrals: Malgorzata Lopez ARNP [Non-Staff] - <Yuval Henderson DO - Last Filed: 07/18/18 07:17> Cosign ED Attending Cosignature Attestation: I was available for consultation during this patient's emergency department encounter
[2018-07-17] MEDS: hydrOXYzine 50 MG/ML INJ IM (12:34)
[2018-07-17 13:55] VITALS: BP 127/65; PULSE 79; RESP 18; O2SAT 99
== END 2018-07-17 14:03 | disposition home or self-care (01) ==
PROVIDERS: Emergency Provider Internal Medicine; PCP Internal Medicine
DX: F41.9 Anxiety disorder, unspecified (principal); F11.23 Opioid dependence with withdrawal
CPT/HCPCS: 96372; 99282; 99283; J3410

== ENCOUNTER 2018-07-25 11:08 | Emergency (ER) | payer OTHER, MEDICAID, SELFPAY ==
[2018-07-25 11:16] VITALS: BP 146/69; PULSE 91; RESP 20; TEMP 36.4; O2SAT 100
--- NOTE | 2018-07-25 12:13 | ED.ABDPAIN ---
HPI - Abdominal Pain General Chief Complaint: Abdominal Pain Stated Complaint: PAIN IN STOMACH/NO APPETITE Time Seen by Provider: 07/25/18 12:10 Source: patient Mode of arrival: ambulatory Limitations: no limitations History of Present Illness HPI narrative: This is a 62-year-old male who comes to the emergency department with complaint of abdominal pain. Patient has been here many times for similar symptoms. He is requesting pain medication. While discussing he states that he has also not urinated in a couple days. Patient denies any fevers. He states he was vomiting a couple days ago but has not been vomiting for the last 3 or 4. He states he has not had much in the way of bowel movements but has been passing gas he states that he has not been urinating. He states that he has been self catheterization arising, when asked if he had seen a neurologist or had been given catheters by a physician he states no ?I got from a friend?. Patient is not having any discharge. patient denies any fevers or chills. he states that he did go see Gastroenterology, he states he was given some medication but it is not helpful and can't afford the medication anyway. He is not taking Suboxone any longer and states he can't afford that either. Patient is very adamant about receiving pain medication. When asked if we can catheterize him today as his bladder scanner showed 200 cc he asked for pain medicine 1st and asked if he can catheterize himself. Related Data Home Medications Medication Instructions Recorded Confirmed sucralfate 1 g PO BID 04/28/18 07/25/18 buprenorphine-naloxone 0.5 film SUBLINGUAL DAILYX7 07/17/18 07/25/18 buspirone 7.5 mg PO TID 07/17/18 07/17/18 hydrocodone-acetaminophen 1 tab PO BID 07/17/18 07/17/18 hydroxyzine pamoate 50 mg PO TID 07/17/18 07/25/18 ibuprofen 600 mg PO TID 07/17/18 07/17/18 lisinopril 20 mg PO DAILY 07/17/18 07/17/18 omeprazole 40 mg PO DAILY 07/17/18 07/25/18 Previous Rx's Medication Instructions Recorded cephalexin [Keflex] 500 mg PO QID #40 cap 07/25/18 tamsulosin [Flomax] 0.4 mg PO DAILY #30 cap 07/25/18 Allergies Allergy/AdvReac Type Severity Reaction Status Date / Time acetaminophen [ACETAMINOPHEN] Allergy Mild ITCHING Verified 07/25/18 11:16 lisinopril [LISINOPRIL] Allergy Unknown Verified 07/25/18 11:16 cortisone [CORTISONE] AdvReac Intermediate MADE ME Verified 07/25/18 11:16 VERY HOT AND MADE ME NUTS codeine [CODEINE] AdvReac Mild ITCHY AND Verified 07/25/18 11:16 DIFFICULTY SLEEPING Review of Systems Review of Systems ROS Unobtainable: All systems reviewed & are unremarkable except as noted in HPI and below Constitutional Denies chills, Denies fever(s), Denies lethargy and Denies weakness Cardiovascular Denies chest pain, Denies edema and Denies dyspnea Respiratory Denies dyspnea Gastrointestinal Gastrointestinal: Reports abdominal pain, Denies melena, Denies hematochezia, Denies change in bowel habits, Reports constipation (passing gas regularly), Denies diarrhea, Denies nausea and Denies vomiting (no more emesis for several days.) Genitourinary Reports as per HPI, Denies hematuria, Reports difficulty urinating, Denies flank pain and Reports other (decreased urine output) Musculoskeletal Denies back pain Neurologic Denies weakness [facility] Medical History Alcoholism (Chronic) Back pain (Chronic) Cervical spine disease (Chronic) Chronic pain syndrome (Chronic) GERD (gastroesophageal reflux disease) (Chronic) Surgical History History of knee surgery (Resolved) History of neck surgery (Resolved ~2008) History of spinal fusion (06/11/14) Status post discectomy (06/11/14) Social History Smoking Status: Current every day smoker alcohol intake: current additional social history: history of alcohol abuse and THC Social History Smoking Status: Current every day smoker alcohol intake: current additional social history: history of alcohol abuse and THC Exam Narrative Exam Narrative: GENERAL: Alert and oriented x three, moderately disheveled thin male in mild distress. HEENT: Head normocephalic, atraumatic, EOMI, pupils reactive, face symmetric, moist mucous membranes NECK: Supple, full range of motion CARDIOVASCULAR: Regular rate and rhythm without murmurs, rubs or gallops. RESPIRATORY: Breath sounds equal bilaterally, no wheezes rales or rhonchi. ABDOMEN: Soft, nontender. nondistended. Normoactive bowel sounds all 4 quadrants. No guarding or rebound, rigidity, no mass : No CVA tenderness. Patient does not wish further exam at this time. EXTREMITIES: Normal range of motion, no clubbing or edema. Neurovascularly intact NEUROLOGICAL: Cranial nerves II through XII grossly intact. Moving all extremities SKIN: Warm, dry, no petechiae, no rashes or lesions. Initial Vital Signs Initial Vital Signs: Vital Signs Temperature 97.5 F L 07/25/18 11:16 Pulse Rate 91 H 07/25/18 11:16 Respiratory Rate 20 07/25/18 11:16 Blood Pressure 146/69 H 07/25/18 11:16 Pulse Oximetry 100 07/25/18 11:16 Course Orders Ordered: ED Orders 07/25/18 12:35 Complete Blood Count AUTO DIFF Stat Comprehensive Metabolic Panel Stat Lipase Stat Urinalysis and Microscopic Stat Urine Culture Stat 07/25/18 12:41 XR KUB Stat 07/25/18 17:17 Consult to Home Health Stat Discontinued Medications Ceftriaxone Sodium/Dextrose (Rocephin) 1 gm in 50 mls @ 100 mls/hr IV NOW ONE Stop: 07/25/18 15:43 Last Infusion: 07/25/18 16:43 Dose: 0 mls/hr Admin: 07/25/18 15:32 Dose: 100 mls/hr Ketorolac Tromethamine (Toradol) 15 mg IV NOW ONE Stop: 07/25/18 12:24 Last Admin: 07/25/18 12:46 Dose: 15 mg Pantoprazole Sodium (Protonix) 40 mg IV NOW ONE Stop: 07/25/18 12:25 Last Admin: 07/25/18 12:47 Dose: 40 mg Potassium Chloride (Potassium Chloride) 40 meq PO NOW ONE Stop: 07/25/18 14:08 Last Admin: 07/25/18 14:17 Dose: 40 meq Vital Signs - 8 hr 07/25/18 11:16 07/25/18 13:03 07/25/18 14:00 Temperature 97.5 F L Pulse Rate 91 H 65 78 Respiratory Rate 20 15 15 Blood Pressure 146/69 H Blood Pressure [Left Arm] 140/63 126/60 Pulse Oximetry 100 97 100 07/25/18 15:00 07/25/18 16:00 Temperature Pulse Rate 71 71 Respiratory Rate Blood Pressure Blood Pressure [Left Arm] 127/47 L 111/53 L Pulse Oximetry 97 97 MDM - Abdominal Pain Lab Data Attestation: I reviewed the patient's lab results. Result diagrams: 07/25/18 12:35 07/25/18 12:35 Lab Results 07/25/18 07/25/18 07/25/18 Range/Units 12:35 12:35 12:35 WBC 6.4 (4.5-11.0) X10^3/uL RBC 3.27 L (4.5-5.9) X10^6/uL Hgb 10.8 L (13.5-17.5) g/dL Hct 32.3 L (41-53) % MCV 98.6 (80-100) fL MCH 33.1 (26-34) PG MCHC 33.6 (30-36) % RDW 14.6 (11.6-14.8) % Plt Count 711 H (150-400) X10^3/uL Neut % (Auto) 71.0 (50-75) % Lymph % (Auto) 21.2 L (25-40) % [place] % (Auto) 5.3 (3-14) % Eos % (Auto) 1.2 L (2-4) % Baso % (Auto) 1.3 (0-2) % Neut # (Auto) 4500 (8812-7889) /uL Lymph # (Auto) 1400 (1641-7430) /uL [place] # (Auto) 300 (0-900) /uL Eos # (Auto) 100 (0-450) /uL Baso # (Auto) 100 (0-100) /uL Sodium 135 L (137-145) mmol/L Potassium 3.1 L (3.4-5.1) mmol/L Chloride 97 L (98-107) mmol/L Carbon Dioxide 31 (22-32) mmol/L BUN 24 H (9-20) mg/dL Creatinine 1.30 H (0.66-1.25) mg/dL Estimated GFR 56.3 L (>60) mL/min BUN/Creatinine Ratio 18.5 (6-22) Glucose 106 (80-110) mg/dL Calcium 8.1 L (8.4-10.2) mg/dL Total Bilirubin 0.6 (0.2-1.3) mg/dL AST 33 (17-59) IU/L ALT 72 (21-72) IU/L Alkaline Phosphatase 97 (38-126) U/L Total Protein 5.7 L (6.3-8.2) g/dL Albumin 2.9 L (3.5-5.0) g/dL Globulin 2.8 (1.7-4.1) g/dL Albumin/Globulin Ratio 1.0 (1.0-2.8) Lipase 46 (23-300) U/L Urine Color Yellow Urine Appearance Clear Urine pH 6.5 (4.5-8.0) Ur Specific [place] 1.020 (1.000-1.035) Urine Protein 1+ H (Negative) Urine Glucose (UA) Negative (Negative) g/dL Urine Ketones Negative (NEGATIVE) Urine Occult Blood Negative (Negative) Urine Nitrate Positive (Negative) Urine Bilirubin Negative (NEGATIVE) Urine Urobilinogen 0.2 (0.2) E.U./dL Ur Leukocyte Esterase Negative (NEGATIVE) Urine RBC None seen (0-5/HPF) Urine WBC 5-10/hpf H (0-5/HPF) Ur Squamous Epith Cells 1-5 /hpf (0-5/HPF) Urine Bacteria None seen (None) Hyaline Casts 1-5/lpf (None) Ur Culture Indicated? Specimen cultured Imaging Data kub xray: Radiologist's impression: [address] [address] XRay Report Signed Patient: Kye Cardenas EMR#: [id number] : 8Acct:[id number] Age/Sex: 62 / MDate of Service: 07/25/18 Loc: ED Accession Number: [id number] Procedure: XR KUB Ordering Provider: Ara Alvarez D.O. PROCEDURE: XR KUB INDICATIONS: abdominal pain TECHNIQUE: One view of the abdomen acquired. COMPARISON: [facility], [place], XR ACUTE ABDOMEN SERIES, 05/01/2018, 18:34. FINDINGS: Surgical changes and devices: None. Bowel: Multiple mildly distended small bowel loops are seen within the left upper quadrant, demonstrating air-fluid levels. Air and stool are seen throughout the colon. No definite pneumoperitoneum. Soft tissues: No suspicious abdominal calcifications. Visualized solid organ contours appear normal in size. Bones: No suspicious bony lesions. IMPRESSION: Prominent left upper quadrant small bowel loops suggests at least a focal ileus. Developing small bowel obstruction is difficult to exclude. Please consider a CT of the abdomen and pelvis with oral and intravenous contrast for further evaluation. Dictated by: Nnamdi Timmons M.D. on 07/25/2018 at 12:42 Approved by: Nnamdi Timmons M.D. on 07/25/2018 at 12:49 MDM Narrative Medical decision making narrative: Attempting to obtain records from and [facility] from last ER visit. Patient's lab work shows a decrease in his hemoglobin from 13-10, patient states he did see some blood in his stool previously but not recently. Platelets are also slightly elevated, white count is normal at 6.4. Chemistry show a potassium of 3.1 which was replaced orally, sodium and chloride are slightly decreased with a slight elevation of BUN and creatinine is normal 1.3. Patient's LFTs are normal along with lipase. Urine today shows nitrates along with 5-[address] shows some left upper quadrant small bowel loops suggestive of at least a focal ileus, potentially could be developing a small bowel obstruction and unable to exclude. There is air and stool seen throughout the colon and no pneumoperitoneum. Patient states that he has been passing gas regularly. He has not proved for several days. He is not vomiting anymore that was several days ago. His urine does show signs of infection. Discussed starting some antibiotics. Patient does have a decrease in his hemoglobin he could be having a GI bleed. Patient had some mild urinary tension with 200 cc, Lange catheter was placed and is draining urine. Patient had appropriate urine output. Discussed with the hospitalist. They defer any observation. Patient was started on Keflex. We discussed whether not to keep the catheter in place but he still urinating regularly and his urinary retention was only about 200 cc which is not an extreme amount. Patient elected to remove the catheter, he was placed on Flomax as well as Keflex. This was selected based on patient's history of EtOH use and risk for fall or potential injury. As well as his slightly elevated creatinine. He has been tolerating orals without any vomiting. he has been resting comfortably and falling asleep intermittently. Social work also was involved with the patient and is working on setting him up with some home health care this was not finalized but I did sign paperwork to help facilitate this, his friend came to pick him up to drive him home. Discharge Plan Departure Patient Disposition: Home Clinical Impression: UTI (urinary tract infection), Anemia Discharge Date/Time: 07/25/18 17:51 Interventions: ED Discharge Assessment Last Done: 07/25/18 17:47 Instructions: DI for Urinary Tract Infection (UTI) Activity Restrictions/Additional Instructions: Follow-up with your primary care as well as home health care in the next week. Social work is working on setting home health care with a nurse and social media content specialist to visit. I recommend that you have a repeat hemoglobin in the next several days as well as recheck of your urine. Take flomax once daily to help with urination. Continue antibiotics as prescribed until they are completely gone. Your prescription was sent to [facility] in [place]. Return to the emergency department for persistent fevers, persistent vomiting, black or bloody stools, new changes to her abdominal pain, inability to eat or drink any food, if you're not having any urine output or other new or concerning symptoms. Prescriptions: New cephalexin [Keflex] 500 mg capsule 500 mg PO QID Qty: 40 RF: 0 tamsulosin [Flomax] 0.4 mg capsule 0.4 mg PO DAILY Qty: 30 RF: 0 No Action sucralfate 1 gram tablet 1 g PO BID RF: 0 hydrocodone-acetaminophen 5-325 mg tablet 1 tab PO BID RF: 0 hydroxyzine pamoate 50 mg capsule 50 mg PO TID RF: 0 omeprazole 40 mg capsule,delayed release(DR/EC) 40 mg PO DAILY RF: 0 buspirone 7.5 mg tablet 7.5 mg PO TID RF: 0 ibuprofen 600 mg tablet 600 mg PO TID RF: 0 buprenorphine-naloxone 8-2 mg film 0.5 film Sublingual DAILYX7 RF: 0 lisinopril 20 mg Tablet 20 mg PO DAILY RF: 0 Referrals: Roby Ricks MD [Primary Care Provider] -
--- NOTE | 2018-07-25 12:26 | ED_ITS ---
HPI - Abdominal Pain General Chief Complaint: Abdominal Pain Stated Complaint: PAIN IN STOMACH/NO APPETITE Time Seen by Provider: 07/25/18 12:10 Source: patient Mode of arrival: ambulatory Limitations: no limitations History of Present Illness HPI narrative: This is a 62-year-old male who comes to the emergency department with complaint of abdominal pain. Patient has been here many times for similar symptoms. He is requesting pain medication. While discussing he states that he has also not urinated in a couple days. Patient denies any fevers. He states he was vomiting a couple days ago but has not been vomiting for the last 3 or 4. He states he has not had much in the way of bowel movements but has been passing gas he states that he has not been urinating. He states that he has been self catheterization arising, when asked if he had seen a neurologist or had been given catheters by a physician he states no ?I got from a friend?. Patient is not having any discharge. patient denies any fevers or chills. he states that he did go see Gastroenterology, he states he was given some medication but it is not helpful and can't afford the medication anyway. He is not taking Suboxone any longer and states he can't afford that either. Patient is very adamant about receiving pain medication. When asked if we can catheterize him today as his bladder scanner showed 200 cc he asked for pain medicine 1st and asked if he can catheterize himself. Related Data Home Medications Medication Instructions Recorded Confirmed sucralfate 1 g PO BID 04/28/18 07/25/18 buprenorphine-naloxone 0.5 film SUBLINGUAL DAILYX7 07/17/18 07/25/18 buspirone 7.5 mg PO TID 07/17/18 07/17/18 hydrocodone-acetaminophen 1 tab PO BID 07/17/18 07/17/18 hydroxyzine pamoate 50 mg PO TID 07/17/18 07/25/18 ibuprofen 600 mg PO TID 07/17/18 07/17/18 lisinopril 20 mg PO DAILY 07/17/18 07/17/18 omeprazole 40 mg PO DAILY 07/17/18 07/25/18 Previous Rx's Medication Instructions Recorded cephalexin [Keflex] 500 mg PO QID #40 cap 07/25/18 tamsulosin [Flomax] 0.4 mg PO DAILY #30 cap 07/25/18 Allergies Allergy/AdvReac Type Severity Reaction Status Date / Time acetaminophen [ACETAMINOPHEN] Allergy Mild ITCHING Verified 07/25/18 11:16 lisinopril [LISINOPRIL] Allergy Unknown Verified 07/25/18 11:16 cortisone [CORTISONE] AdvReac Intermediate MADE ME Verified 07/25/18 11:16 VERY HOT AND MADE ME NUTS codeine [CODEINE] AdvReac Mild ITCHY AND Verified 07/25/18 11:16 DIFFICULTY SLEEPING Review of Systems Review of Systems ROS Unobtainable: All systems reviewed & are unremarkable except as noted in HPI and below Constitutional Denies chills, Denies fever(s), Denies lethargy and Denies weakness Cardiovascular Denies chest pain, Denies edema and Denies dyspnea Respiratory Denies dyspnea Gastrointestinal Gastrointestinal: Reports abdominal pain, Denies melena, Denies hematochezia, Denies change in bowel habits, Reports constipation (passing gas regularly), Denies diarrhea, Denies nausea and Denies vomiting (no more emesis for several days.) Genitourinary Reports as per HPI, Denies hematuria, Reports difficulty urinating, Denies flank pain and Reports other (decreased urine output) Musculoskeletal Denies back pain Neurologic Denies weakness [facility] Medical History Alcoholism (Chronic) Back pain (Chronic) Cervical spine disease (Chronic) Chronic pain syndrome (Chronic) GERD (gastroesophageal reflux disease) (Chronic) Surgical History History of knee surgery (Resolved) History of neck surgery (Resolved ~2008) History of spinal fusion (06/11/14) Status post discectomy (06/11/14) Social History Smoking Status: Current every day smoker alcohol intake: current additional social history: history of alcohol abuse and THC Social History Smoking Status: Current every day smoker alcohol intake: current additional social history: history of alcohol abuse and THC Exam Narrative Exam Narrative: GENERAL: Alert and oriented x three, moderately disheveled thin male in mild distress. HEENT: Head normocephalic, atraumatic, EOMI, pupils reactive, face symmetric, moist mucous membranes NECK: Supple, full range of motion CARDIOVASCULAR: Regular rate and rhythm without murmurs, rubs or gallops. RESPIRATORY: Breath sounds equal bilaterally, no wheezes rales or rhonchi. ABDOMEN: Soft, nontender. nondistended. Normoactive bowel sounds all 4 quadrants. No guarding or rebound, rigidity, no mass : No CVA tenderness. Patient does not wish further exam at this time. EXTREMITIES: Normal range of motion, no clubbing or edema. Neurovascularly intact NEUROLOGICAL: Cranial nerves II through XII grossly intact. Moving all extremities SKIN: Warm, dry, no petechiae, no rashes or lesions. Initial Vital Signs Initial Vital Signs: Vital Signs Temperature 97.5 F L 07/25/18 11:16 Pulse Rate 91 H 07/25/18 11:16 Respiratory Rate 20 07/25/18 11:16 Blood Pressure 146/69 H 07/25/18 11:16 Pulse Oximetry 100 07/25/18 11:16 Course Orders Ordered: ED Orders 07/25/18 12:35 Complete Blood Count AUTO DIFF Stat Comprehensive Metabolic Panel Stat Lipase Stat Urinalysis and Microscopic Stat Urine Culture Stat 07/25/18 12:41 XR KUB Stat 07/25/18 17:17 Consult to Home Health Stat Discontinued Medications Ceftriaxone Sodium/Dextrose (Rocephin) 1 gm in 50 mls @ 100 mls/hr IV NOW ONE Stop: 07/25/18 15:43 Last Infusion: 07/25/18 16:43 Dose: 0 mls/hr Admin: 07/25/18 15:32 Dose: 100 mls/hr Ketorolac Tromethamine (Toradol) 15 mg IV NOW ONE Stop: 07/25/18 12:24 Last Admin: 07/25/18 12:46 Dose: 15 mg Pantoprazole Sodium (Protonix) 40 mg IV NOW ONE Stop: 07/25/18 12:25 Last Admin: 07/25/18 12:47 Dose: 40 mg Potassium Chloride (Potassium Chloride) 40 meq PO NOW ONE Stop: 07/25/18 14:08 Last Admin: 07/25/18 14:17 Dose: 40 meq Vital Signs - 8 hr 07/25/18 11:16 07/25/18 13:03 07/25/18 14:00 Temperature 97.5 F L Pulse Rate 91 H 65 78 Respiratory Rate 20 15 15 Blood Pressure 146/69 H Blood Pressure [Left Arm] 140/63 126/60 Pulse Oximetry 100 97 100 07/25/18 15:00 07/25/18 16:00 Temperature Pulse Rate 71 71 Respiratory Rate Blood Pressure Blood Pressure [Left Arm] 127/47 L 111/53 L Pulse Oximetry 97 97 MDM - Abdominal Pain Lab Data Attestation: I reviewed the patient's lab results. Result diagrams: 07/25/18 12:35 07/25/18 12:35 Lab Results 07/25/18 07/25/18 07/25/18 Range/Units 12:35 12:35 12:35 WBC 6.4 (4.5-11.0) X10^3/uL RBC 3.27 L (4.5-5.9) X10^6/uL Hgb 10.8 L (13.5-17.5) g/dL Hct 32.3 L (41-53) % MCV 98.6 (80-100) fL MCH 33.1 (26-34) PG MCHC 33.6 (30-36) % RDW 14.6 (11.6-14.8) % Plt Count 711 H (150-400) X10^3/uL Neut % (Auto) 71.0 (50-75) % Lymph % (Auto) 21.2 L (25-40) % [place] % (Auto) 5.3 (3-14) % Eos % (Auto) 1.2 L (2-4) % Baso % (Auto) 1.3 (0-2) % Neut # (Auto) 4500 (7104-9703) /uL Lymph # (Auto) 1400 (9987-9730) /uL R[place]els # (Auto) 300 (0-900) /uL Eos # (Auto) 100 (0-450) /uL Baso # (Auto) 100 (0-100) /uL Sodium 135 L (137-145) mmol/L Potassium 3.1 L (3.4-5.1) mmol/L Chloride 97 L (98-107) mmol/L Carbon Dioxide 31 (22-32) mmol/L BUN 24 H (9-20) mg/dL Creatinine 1.30 H (0.66-1.25) mg/dL Estimated GFR 56.3 L (>60) mL/min BUN/Creatinine Ratio 18.5 (6-22) Glucose 106 (80-110) mg/dL Calcium 8.1 L (8.4-10.2) mg/dL Total Bilirubin 0.6 (0.2-1.3) mg/dL AST 33 (17-59) IU/L ALT 72 (21-72) IU/L Alkaline Phosphatase 97 (38-126) U/L Total Protein 5.7 L (6.3-8.2) g/dL Albumin 2.9 L (3.5-5.0) g/dL Globulin 2.8 (1.7-4.1) g/dL Albumin/Globulin Ratio 1.0 (1.0-2.8) Lipase 46 (23-300) U/L Urine Color Yellow Urine Appearance Clear Urine pH 6.5 (4.5-8.0) Ur Specific [place] 1.020 (1.000-1.035) Urine Protein 1+ H (Negative) Urine Glucose (UA) Negative (Negative) g/dL Urine Ketones Negative (NEGATIVE) Urine Occult Blood Negative (Negative) Urine Nitrate Positive (Negative) Urine Bilirubin Negative (NEGATIVE) Urine Urobilinogen 0.2 (0.2) E.U./dL Ur Leukocyte Esterase Negative (NEGATIVE) Urine RBC None seen (0-5/HPF) Urine WBC 5-10/hpf H (0-5/HPF) Ur Squamous Epith Cells 1-5 /hpf (0-5/HPF) Urine Bacteria None seen (None) Hyaline Casts 1-5/lpf (None) Ur Culture Indicated? Specimen cultured Imaging Data kub xray: Radiologist's impression: [address] [address] XRay Report Signed Patient: Kye Cardenas EMR#: [id number] : 8Acct:[id number] Age/Sex: 62 / MDate of Service: 07/25/18 Loc: ED Accession Number: [id number] Procedure: XR KUB Ordering Provider: Ara Alvarez D.O. PROCEDURE: XR KUB INDICATIONS: abdominal pain TECHNIQUE: One view of the abdomen acquired. COMPARISON: [facility], [place], XR ACUTE ABDOMEN SERIES, 05/01/2018, 18:34. FINDINGS: Surgical changes and devices: None. Bowel: Multiple mildly distended small bowel loops are seen within the left upper quadrant, demonstrating air-fluid levels. Air and stool are seen throughout the colon. No definite pneumoperitoneum. Soft tissues: No suspicious abdominal calcifications. Visualized solid organ c ontours appear normal in size. Bones: No suspicious bony lesions. IMPRESSION: Prominent left upper quadrant small bowel loops suggests at least a focal ileus. Developing small bowel obstruction is difficult to exclude. Please consider a CT of the abdomen and pelvis with oral and intravenous contrast for further evaluation. Dictated by: Nnamdi Timmons M.D. on 07/25/2018 at 12:42 Approved by: Nnamdi Timmons M.D. on 07/25/2018 at 12:49 MDM Narrative Medical decision making narrative: Attempting to obtain records from and [facility] from last ER visit. Patient's lab work shows a decrease in his hemoglobin from 13-10, patient states he did see some blood in his stool previously but not recently. Platelets are also slightly elevated, white count is normal at 6.4. Chemistry show a potassium of 3.1 which was replaced orally, sodium and chloride are slightly decreased with a slight elevation of BUN and creatinine is normal 1.3. Patient's LFTs are normal along with lipase. Urine today shows nitrates along with 5-[address] shows some left upper quadrant small bowel loops suggestive of at least a focal ileus, potentially could be developing a small bowel obstruction and unable to exclude. There is air and stool seen throughout the colon and no pneumoperitoneum. Patient states that he has been passing gas regularly. He has not proved for several days. He is not vomiting anymore that was several days ago. His urine does show signs of infection. Discussed starting some antibiotics. Patient does have a decrease in his hemoglobin he could be having a GI bleed. Patient had some mild urinary tension with 200 cc, Lange catheter was placed and is draining urine. Patient had appropriate urine output. Discussed with the hospitalist. They defer any observation. Patient was started on Keflex. We discussed whether not to keep the catheter in place but he still urinating regularly and his urinary retention was only about 200 cc which is not an extreme amount. Patient elected to remove the catheter, he was placed on Flomax as well as Keflex. This was selected based on patient's history of EtOH use and risk for fall or potential injury. As well as his slightly elevated creatinine. He has been tolerating orals without any vomiting. he has been resting comfortably and falling asleep intermittently. Social work also was involved with the patient and is working on setting him up with some home health care this was not finalized but I did sign paperwork to help facilitate this, his friend came to pick him up to drive him home. Discharge Plan Departure Patient Disposition: Home Clinical Impression: UTI (urinary tract infection), Anemia Discharge Date/Time: 07/25/18 17:51 Interventions: ED Discharge Assessment Last Done: 07/25/18 17:47 Instructions: DI for Urinary Tract Infection (UTI) Activity Restrictions/Additional Instructions: Follow-up with your primary care as well as home health care in the next week. Social work is working on setting home health care with a nurse and social media developer to visit. I recommend that you have a repeat hemoglobin in the next several days as well as recheck of your urine. Take flomax once daily to help with urination. Continue antibiotics as prescribed until they are completely gone. Your prescription was sent to [facility] in [place]. Return to the emergency department for persistent fevers, persistent vomiting, black or bloody stools, new changes to her abdominal pain, inability to eat or drink any food, if you're not having any urine output or other new or concerning symptoms. Prescriptions: New cephalexin [Keflex] 500 mg capsule 500 mg PO QID Qty: 40 RF: 0 tamsulosin [Flomax] 0.4 mg capsule 0.4 mg PO DAILY Qty: 30 RF: 0 No Action sucralfate 1 gram tablet 1 g PO BID RF: 0 hydrocodone-acetaminophen 5-325 mg tablet 1 tab PO BID RF: 0 hydroxyzine pamoate 50 mg capsule 50 mg PO TID RF: 0 omeprazole 40 mg capsule,delayed release(DR/EC) 40 mg PO DAILY RF: 0 buspirone 7.5 mg tablet 7.5 mg PO TID RF: 0 ibuprofen 600 mg tablet 600 mg PO TID RF: 0 buprenorphine-naloxone 8-2 mg film 0.5 film Sublingual DAILYX7 RF: 0 lisinopril 20 mg Tablet 20 mg PO DAILY RF: 0 Referrals: Roby Ricks MD [Primary Care Provider] -
--- NOTE | 2018-07-25 12:41 | DI.RAD.S_ITS ---
PROCEDURE: XR KUB INDICATIONS: abdominal pain TECHNIQUE: One view of the abdomen acquired. COMPARISON: [facility], [place], XR ACUTE ABDOMEN SERIES, 05/01/2018, 18:34. FINDINGS: Surgical changes and devices: None. Bowel: Multiple mildly distended small bowel loops are seen within the left upper quadrant, demonstrating air-fluid levels. Air and stool are seen throughout the colon. No definite pneumoperitoneum. Soft tissues: No suspicious abdominal calcifications. Visualized solid organ contours appear normal in size. Bones: No suspicious bony lesions. IMPRESSION: Prominent left upper quadrant small bowel loops suggests at least a focal ileus. Developing small bowel obstruction is difficult to exclude. Please consider a CT of the abdomen and pelvis with oral and intravenous contrast for further evaluation. Dictated by: Nnamdi Timmons M.D. on 07/25/2018 at 12:42 Approved by: Nnamdi Timmons M.D. on 07/25/2018 at 12:49
[2018-07-25] MEDS: KETOROLAC 60 MG/2 ML VIAL 15 MG IV (12:46)
[2018-07-25] MEDS: PANTOPRAZOLE 40 MG VIAL IV (12:47)
[2018-07-25 12:53] LABS: Bacteria Urine None Seen; RBC Urine None Seen (0-5/HPF)
[2018-07-25 12:57] LABS: Add Manual Diff / Slide Review NO; Basophils Absolute Auto 100 /uL (0-100); Basophils Percent Auto 1.3 % (0-2); Eosinophils Absolute Auto 100 /uL (0-450); Eosinophils Percent Auto 1.2 % (2-4); Hematocrit 32.3 % (41-53); Hemoglobin 10.8 g/dL (13.5-17.5); Lymphocytes Absolute Auto 1400 /uL (1100-4500); Lymphocytes Percent Auto 21.2 % (25-40); Mean Corpuscular HGB Conc 33.6 % (30-36); Mean Corpuscular Hemoglobin 33.1 PG (26-34); Mean Corpuscular Volume 98.6 fL (80-100); Monocytes Absolute Auto 300 /uL (0-900); Monocytes Percent Auto 5.3 % (3-14); Neutrophils Absolute Auto 4500 /uL (1500-7000); Platelet Count 711 X10^3/uL (150-400); Red Blood Cell Count 3.27 X10^6/uL (4.5-5.9); Red Cell Distribution Width 14.6 % (11.6-14.8); White Blood Cell Count 6.4 X10^3/uL (4.5-11.0)
[2018-07-25 12:59] LABS: Appearance Urine UA CLEAR; Bilirubin Urine UA NEGATIVE (NEGATIVE); Color Urine UA YELLOW; Glucose Urine UA NEGATIVE (Negative); Ketones Urine UA NEGATIVE (NEGATIVE); Leukocyte Esterase Urine UA NEGATIVE (NEGATIVE); Nitrite Urine UA POSITIVE (Negative); Occult Blood Urine UA NEGATIVE (Negative); Protein Urine UA 1+ (Negative); Urobilinogen Urine UA 0.2 E.U./dL (0.2); pH Urine UA 6.5 (4.5-8.0)
[2018-07-25 13:03] VITALS: BP 140/63; PULSE 65; RESP 15; O2SAT 97
[2018-07-25 13:09] LABS: Alanine Aminotransferase 72 IU/L (21-72); Albumin 2.9 g/dL (3.5-5.0); Alkaline Phosphatase 97 U/L (38-126); Aspartate Aminotransferase 33 IU/L (17-59); BUN Creatinine Ratio 18.5 (6-22); Bilirubin Total 0.6 mg/dL (0.2-1.3); Blood Urea Nitrogen 24 mg/dL (9-20); Calcium 8.1 mg/dL (8.4-10.2); Carbon Dioxide 31 mmol/L (22-32); Chloride 97 mmol/L (98-107); Estimated Glomerular Filt Rate 56.3 mL/min (>60); Globulin 2.8 g/dL (1.7-4.1); Glucose 106 mg/dL (80-110); HEMOLYSIS < 15 (0-50); Lipase 46 U/L (23-300); Potassium 3.1 mmol/L (3.4-5.1); Sodium 135 mmol/L (137-145); Total Protein 5.7 g/dL (6.3-8.2)
[2018-07-25 13:17] LABS: Culture Indicated Urine Specimen Cultured; Hyaline Casts Urine 1-5/LPF; Squamous Epithelial Cell Urine 1-5 /HPF (0-5/HPF); WBC Urine 5-10/HPF (0-5/HPF)
[2018-07-25 14:00] VITALS: BP 126/60; PULSE 78; RESP 15; O2SAT 100
[2018-07-25] MEDS: POTASSIUM CHLORIDE 20 MEQ/15 ML UDC 40 MEQ PO (14:17)
[2018-07-25 15:00] VITALS: BP 127/47; PULSE 71; O2SAT 97
[2018-07-25] MEDS: CEFTRIAXONE 1 GM/50 ML FROZ.PIGGY IV (15:32)
[2018-07-25 16:00] VITALS: BP 111/53; PULSE 71; O2SAT 97
--- NOTE | 2018-07-25 17:23 | CM.SWNOTE ---
Patient is a 62 year old male who was admitted to ER on 07/25/18 for Pain/No Appetite. Pt has [facility] and [facility] for insurance and his PCP is Dr. Ricks. EMR was reviewed. Per ER MD, pt with UTI, anemia, and pain management issues but no admission to acute medical floor needed. Per RN and MD, pt is has a high frequency of ER visits for pain management issues, alcohol use, and urinary retention issues. Pt has been referred to Urology and other follow up appointments but pt struggles with his medication compliance and follow through. SW met bedside with pt and explained role and pt complains of aches and pains and chills but states he's willing to participate in assessment for at least a brief time. Pt confirms that he lives in [place], at first he says alone but then states he has a roommate whom he finds helpful. Pt denies any other friend or family support locally and denies any other supportive services in place beyond receiving disability and food stamps through Medicaid. Pt does not drive but qualifies for Medicaid transportation. Pt denies having any Computer Bookkeeper through [facility] [employer] or Medicaid but is requesting additional support stating that he struggles with getting his meds and managing them and infers that his meds are sometimes misplaced or taken by others. Pt states that he has increased falls and weakness but not currently willing to discuss alcohol use or impacts on his well being. SW discussed if pt has ever applied or inquired about [employer] [facility] to provide additional assist in the home with med management, ambulation, etc.. and pt states he has not applied but this is a program he feels he would benefit from and would like. SW asked if pt does well completing pwk and pt states that his roommate usually helps him. Pt then stated that he was not feeling well and was not feeling up to discussing any more d/c planning needs at this time and is hopeful that he will be admitted to the medical floor for further care. SW had difficulty getting a clear sense and understanding of pt's living situation, daily needs, financial situation, etc.. Pt's answers were brief and sometimes conflicting but pt clearly requesting additional support at home. Pt would ideally benefit from having an in-home support program like [employer] , Home Health if pt qualifies for homebound status, or the [facility] Program through [facility] but referrals only are initiated by insurance. SW called [facility] and discussed pt situation and needs and [facility] willing to review patient's clinicals and insurance to confirm that they can meet his needs. [facility] aware that pt is asking for support and is willing to have training staff in his home and that pt could be a tricky patient to work with but that HH could help reduce pt's high readmit risk and ideal for HH to intervene before pt becomes higher medical risk. ROSCOE faxed pt's clinicals, signed MD Agata orders to [facility] to review. ROSCOE spoke to pt's roommate/friend Rishabh Alvarado when he came to provide transport home for the pt and confirms that they live together with pt living in the downstairs part of his home. Rishabh states that the pt has become increasingly less active and lying in bed most of the day and interested in eating food and has requested possible counseling or psychiatrist for feeling depressed. Rishabh has attempted to set up counseling for the pt but has hit some barriers. Rishabh also states that he gets groceries and meds for the pt and is aware that pt is not eating much and has been refusing to take some of his meds including Suboxone. ROSCOE discussed [facility] and provided him with the brochure and also provided him with the [facility] brochure and discussed their services and roommate was very appreciative and agreeable with helping set up services. Plan: Patient to d/c home via roommate Rishabh's vehicle and [facility] likely to attempt to open the pt to services within 48 hrs if pt meets criteria and pt and roommate with [facility] resources. SARAH Vazquez
--- NOTE | 2018-07-25 17:52 | PC.NURSE ---
instructions/ and med instructions, given to patent ? understands totally. friend in room with pt
== END 2018-07-25 17:51 | disposition home or self-care (01) ==
PROVIDERS: Emergency Provider Emergency Medicine; PCP Internal Medicine
DX: R39.198 Other difficulties with micturition (principal); N39.0 Urinary tract infection, site not specified
CPT/HCPCS: 36591; 51701; 51798; 74018; 80053; 81001; 83690; 85025; 87077; 87086; 87186; 96365; 96375; 99284; C9113; J1885

== ENCOUNTER 2018-08-02 17:57 | Emergency (ER) | payer OTHER, MEDICAID, SELFPAY ==
[2018-08-02 18:02] VITALS: BP 146/85; PULSE 89; RESP 19; TEMP 36.8; O2SAT 99
--- NOTE | 2018-08-02 18:08 | ED.WEAKNESS ---
HPI - Weakness General Chief complaint: Weakness Stated complaint: states very sick these days Time Seen by Provider: 08/02/18 18:08 Source: patient Mode of arrival: ambulatory Limitations: no limitations History of Present Illness HPI Narrative: Patient is a 62-year-old male. He is well known to this emergency department for arriving with multiple complaints. He was seen at [facility] last evening. He returns to our emergency department today stating ?I am dying?. He also has complaints of abdominal pain, states that he has anxiety and cannot sleep, states that he has had problems urinating, states that he has had a 40 lb weight loss recently. When asked the patient what brought him into the emergency department this evening he stated that it was because of his anxiety and that he cannot sleep. He continues to ask for pain medication. He has multiple times for medicines to ?put me to sleep?. Related Data Home Medications Medication Instructions Recorded Confirmed sucralfate 1 g PO BID 04/28/18 07/25/18 buprenorphine-naloxone 0.5 film SUBLINGUAL DAILYX7 07/17/18 07/25/18 buspirone 7.5 mg PO TID 07/17/18 07/17/18 hydrocodone-acetaminophen 1 tab PO BID 07/17/18 07/17/18 hydroxyzine pamoate 50 mg PO TID 07/17/18 07/25/18 ibuprofen 600 mg PO TID 07/17/18 07/17/18 lisinopril 20 mg PO DAILY 07/17/18 07/17/18 omeprazole 40 mg PO DAILY 07/17/18 07/25/18 Previous Rx's Medication Instructions Recorded cephalexin [Keflex] 500 mg PO QID #40 cap 07/25/18 tamsulosin [Flomax] 0.4 mg PO DAILY #30 cap 07/25/18 Allergies Allergy/AdvReac Type Severity Reaction Status Date / Time acetaminophen [ACETAMINOPHEN] Allergy Mild ITCHING Verified 07/25/18 11:16 lisinopril [LISINOPRIL] Allergy Unknown Verified 07/25/18 11:16 cortisone [CORTISONE] AdvReac Intermediate MADE ME Verified 07/25/18 11:16 VERY HOT AND MADE ME NUTS codeine [CODEINE] AdvReac Mild ITCHY AND Verified 07/25/18 11:16 DIFFICULTY SLEEPING Review of Systems Constitutional Denies fever(s), Denies headache(s) and Reports weakness ENT Ears, Nose, Mouth, and Throat: Denies headache(s) and Denies disequilibrium Cardiovascular Denies chest pain and Denies dyspnea Respiratory Denies dyspnea Gastrointestinal Gastrointestinal: Reports abdominal pain, Denies change in stool character, Reports nausea and Denies vomiting Genitourinary Comments: Patient states he was having problems urinating however stated that he was not having dysuria Musculoskeletal Reports myalgias and Denies arthralgias Integumentary/Breasts Denies rash Neurologic Denies headache(s), Denies disequilibrium and Reports weakness Psychiatric Reports anxiety Comments: Problems sleeping Hematologic/Lymphatic Denies easy bleeding and Denies easy bruising [facility] Medical History Alcoholism (Chronic) Back pain (Chronic) Cervical spine disease (Chronic) Chronic pain syndrome (Chronic) GERD (gastroesophageal reflux disease) (Chronic) Social History Smoking Status: Current every day smoker alcohol intake: current additional social history: history of alcohol abuse and THC Exam Initial Vital Signs Initial Vital Signs: Vital Signs Temperature 98.3 F 08/02/18 18:02 Pulse Rate 89 08/02/18 18:02 Respiratory Rate 19 08/02/18 18:02 Blood Pressure 146/85 H 08/02/18 18:02 Pulse Oximetry 99 08/02/18 18:02 Const General: anxious and disheveled Nutritional Appearance: thin Orientation: alert, awake and oriented x3 HENMT Head: normal to inspection and normocephalic Resp Effort & Inspection: normal respiratory effort Auscultation: clear to auscultation bilaterally Cardio Rate: regular rate Rhythm: regular rhythm GI Inspection: non-distended Palpation: soft, No firm and tender (Tender in all areas with palpation) Skin Lesions: no lesions Rashes: no rashes Neuro General: alert, awake and oriented x3 Gait: normal gait Extrem General: normal to inspection and No edema Psych Appearance: grossly normal and well kempt Scores GCS Amelia coma scale eye opening: Spontaneous Amelia coma scale verbal response: Orientated Amelia coma scale motor response: Obey commands [place] coma scale total score: 15 Course Orders Ordered: ED Orders 08/02/18 18:12 EKG-12 Lead Stat 08/02/18 18:15 Complete Blood Count AUTO DIFF Stat Comprehensive Metabolic Panel Stat Lipase Stat Urine Drug Screen, Rapid Stat 08/02/18 18:43 XR abdomen 1V Stat 08/02/18 18:45 Urine Microscopic Stat Discontinued Medications Lorazepam (Ativan) 1 mg PO NOW ONE Stop: 08/02/18 18:42 Last Admin: 08/02/18 18:59 Dose: 1 mg Vital Signs - 8 hr 08/02/18 18:02 Temperature 98.3 F Pulse Rate 89 Respiratory Rate 19 Blood Pressure 146/85 H Pulse Oximetry 99 MDM - Weakness Lab Data Attestation: I reviewed the patient's lab results. Result diagrams: 08/02/18 18:15 08/02/18 18:15 Lab Results 08/02/18 08/02/18 08/02/18 Range/Units 18:15 18:15 18:15 WBC 5.2 (4.5-11.0) X10^3/uL RBC 2.85 L (4.5-5.9) X10^6/uL Hgb 9.6 L (13.5-17.5) g/dL Hct 28.8 L (41-53) % MCV 101.1 H (80-100) fL MCH 33.9 (26-34) PG MCHC 33.5 (30-36) % RDW 16.2 H (11.6-14.8) % Plt Count 650 H (150-400) X10^3/uL Neut % (Auto) 58.4 (50-75) % Lymph % (Auto) 29.4 (25-40) % [place] % (Auto) 8.9 (3-14) % Eos % (Auto) 2.2 (2-4) % Baso % (Auto) 1.1 (0-2) % Neut # (Auto) 3000 (1682-4143) /uL Lymph # (Auto) 1500 (3295-6765) /uL [place] # (Auto) 500 (0-900) /uL Eos # (Auto) 100 (0-450) /uL Baso # (Auto) 100 (0-100) /uL Sodium 135 L (137-145) mmol/L Potassium 3.9 (3.4-5.1) mmol/L Chloride 105 (98-107) mmol/L Carbon Dioxide 25 (22-32) mmol/L BUN 24 H (9-20) mg/dL Creatinine 1.10 (0.66-1.25) mg/dL Estimated GFR > 60.0 (>60) mL/min BUN/Creatinine Ratio 21.8 (6-22) Glucose 107 (80-110) mg/dL Calcium 8.2 L (8.4-10.2) mg/dL Total Bilirubin 0.2 (0.2-1.3) mg/dL AST 21 (17-59) IU/L ALT 25 (21-72) IU/L Alkaline Phosphatase 86 (38-126) U/L Total Protein 5.7 L (6.3-8.2) g/dL Albumin 3.0 L (3.5-5.0) g/dL Globulin 2.7 (1.7-4.1) g/dL Albumin/Globulin Ratio 1.1 (1.0-2.8) Lipase 138 D (23-300) U/L Urine RBC (0-5/HPF) Urine WBC (0-5/HPF) Other Crystals Amorphous Sediment Urine Bacteria (None) Ur Culture Indicated? Micro UA Comment Urine Opiates Screen Negative (Negative) Ur Oxycodone Screen Negative (Negative) Urine Methadone Screen Negative (Negative) Ur Barbiturates Screen Negative (Negative) U Tricyclic Antidepress Negative (Negative) Ur Phencyclidine Scrn Negative (Negative) Ur Amphetamines Screen Negative (Negative) U Methamphetamines Scrn Negative (Negative) Ur MDMA Scrn (Ecstasy) Negative (Negative) U Benzodiazepines Scrn Positive H (Negative) Urine Cocaine Screen Negative (Negative) U Marijuana (THC) Screen Negative (Negative) 08/02/18 Range/Units 18:45 WBC (4.5-11.0) X10^3/uL RBC (4.5-5.9) X10^6/uL Hgb (13.5-17.5) g/dL Hct (41-53) % MCV (80-100) fL MCH (26-34) PG MCHC (30-36) % RDW (11.6-14.8) % Plt Count (150-400) X10^3/uL Neut % (Auto) (50-75) % Lymph % (Auto) (25-40) % [place]ima % (Auto) (3-14) % Eos % (Auto) (2-4) % Baso % (Auto) (0-2) % Neut # (Auto) (2558-6521) /uL Lymph # (Auto) (2659-2968) /uL [place]ima # (Auto) (0-900) /uL Eos # (Auto) (0-450) /uL Baso # (Auto) (0-100) /uL Sodium (137-145) mmol/L Potassium (3.4-5.1) mmol/L Chloride (98-107) mmol/L Carbon Dioxide (22-32) mmol/L BUN (9-20) mg/dL Creatinine (0.66-1.25) mg/dL Estimated GFR (>60) mL/min BUN/Creatinine Ratio (6-22) Glucose (80-110) mg/dL Calcium (8.4-10.2) mg/dL Total Bilirubin (0.2-1.3) mg/dL AST (17-59) IU/L ALT (21-72) IU/L Alkaline Phosphatase (38-126) U/L Total Protein (6.3-8.2) g/dL Albumin (3.5-5.0) g/dL Globulin (1.7-4.1) g/dL Albumin/Globulin Ratio (1.0-2.8) Lipase (23-300) U/L Urine RBC None seen (0-5/HPF) Urine WBC 0-1/hpf (0-5/HPF) Other Crystals Other crystals: Amorphous Sediment 1+ Urine Bacteria None seen (None) Ur Culture Indicated? Cult not indicated Micro UA Comment Urine Opiates Screen (Negative) Ur Oxycodone Screen (Negative) Urine Methadone Screen (Negative) Ur Barbiturates Screen (Negative) U Tricyclic Antidepress (Negative) Ur Phencyclidine Scrn (Negative) Ur Amphetamines Screen (Negative) U Methamphetamines Scrn (Negative) Ur MDMA Scrn (Ecstasy) (Negative) U Benzodiazepines Scrn (Negative) Urine Cocaine Screen (Negative) U Marijuana (THC) Screen (Negative) Urine Dip Bedside Urine Glucose 100 mg/dl Bedside Urine Bilirubin - Negative Bedside Urine Ketone - Negative Urine Specific Craig 1.015 Bedside Urine Occult Blood - Negative Bedside Urine pH 7.5 Bedside Urine Protein + 30 Bedside Urine Urobilinogen +/- 1mg Bedside Urine Nitrite - Negative Bedside Urine Leukocytes + 70 Esterase Imaging Data X-ray abdomen: Radiologist's impression: Patient: Kye Cardenas EMR#: [id number] : 8Acct:[id number] Age/Sex: 62 / MDate of Service: 08/02/18 Loc: ED Accession Number: [id number] Procedure: XR abdomen 1V Ordering Provider: Yuval Henderson D.O. PROCEDURE: XR ABDOMEN 1V INDICATIONS: ABD pain TECHNIQUE: One view of the abdomen acquired. COMPARISON: None. FINDINGS: Surgical changes and devices: Cervical spinal fixation hardware Bowel: Bowel gas pattern is normal. Soft tissues: No suspicious abdominal calcifications. Visualized solid organ contours appear normal in size. Bones: No suspicious bony lesions. IMPRESSION: No evidence of bowel obstruction. No acute consolidation. Dictated by: Raffy Perrin M.D. on 08/02/2018 at 19:19 Approved by: Raffy Perrin M.D. on 08/02/2018 at 19:20 ECG Data Attestation: I personally reviewed and interpreted this ECG as follows: Prior ECG tracings: not available for review Interpretation: Sinus rhythm Ventricular rate 82 Normal axis Normal QRS Normal QTC Nonspecific ST T wave changes MDM Narrative Medical decision making narrative: I was able to review the patient's notes from his visit to [facility] dated 08/01/2018 he was seen there for symptoms very similar to what his visit today is 4. He was evaluated and discharged with a prescription for Zofran Ativan. Asked the patient about this he stated that he lost the Ativan and no longer had it. I informed him that I would not refill his Ativan because he lost it. I also informed him multiple times that I would not provide him pain medication here in the emergency department. I informed him that if he had sleeping issues that is a discussion he should have with his primary doctor. Also informed him that his abdominal pain and his weight loss should be addressed by his primary doctor as well. he was given 1 Ativan here in the emergency department he states that it did not calm him enough. He stated that he wanted to leave. He was alert oriented x3. Not clinically intoxicated. Was ambulating around the emergency department that any problems. He stated ?if you're not going to give me anything all just go to the street and buy something ? informed him that his blood counts were little lower today that he needed to talk with his primary doctor about that. He has no signs of a urinary tract infection today. I did encourage the patient to stay here in the emergency department for further work-up however he did not want to stay. He left without taking any of his paperwork. He was informed he could return to complete his workup at any time. Discharge Plan Departure Patient Disposition: Left Against Medical Advice Clinical Impression: Anxiety Anemia Qualifiers: Anemia type: unspecified type Qualified Code(s): D64.9 - Anemia, unspecified Discharge Date/Time: 08/02/18 19:30 Interventions: ED Discharge Assessment Last Done: 08/02/18 19:30 Instructions: Anxiety Disorders, Anemia, Anxiety and Panic Attacks (Alternative Therapy) Activity Restrictions/Additional Instructions: Your leaving against medical advice. Unfortunately I cannot refill your Ativan that you lost from your ER visit at [facility] yesterday. I am also not comfortable giving you any more pain medication. Your blood counts are slightly lower today. Tomorrow morning you need to contact your primary care doctor for a follow-up. You can return to the emergency department for new or worsening symptoms Prescriptions: No Action sucralfate 1 gram tablet 1 g PO BID RF: 0 hydrocodone-acetaminophen 5-325 mg tablet 1 tab PO BID RF: 0 hydroxyzine pamoate 50 mg capsule 50 mg PO TID RF: 0 omeprazole 40 mg capsule,delayed release(DR/EC) 40 mg PO DAILY RF: 0 buspirone 7.5 mg tablet 7.5 mg PO TID RF: 0 ibuprofen 600 mg tablet 600 mg PO TID RF: 0 buprenorphine-naloxone 8-2 mg film 0.5 film Sublingual DAILYX7 RF: 0 lisinopril 20 mg Tablet 20 mg PO DAILY RF: 0 cephalexin [Keflex] 500 mg capsule 500 mg PO QID Qty: 40 RF: 0 tamsulosin [Flomax] 0.4 mg capsule 0.4 mg PO DAILY Qty: 30 RF: 0 Referrals: Roby Ricks MD [Primary Care Provider] - Stand Alone Forms: Against Medical Advice
--- NOTE | 2018-08-02 18:22 | PC.NURSE ---
pt arrived speaking montenegrin , at times vincentian, states, Im very sick, I need the doctor and I need medicine, Im dying. pt arrived with old sticker from [facility], when asked pt states, he was seen in [place] yesterday,. pt denies answering other questions. moving all extremities, skin warm dry pink. no resp distress noted.
--- NOTE | 2018-08-02 18:43 | DI.RAD.S_ITS ---
PROCEDURE: XR ABDOMEN 1V INDICATIONS: ABD pain TECHNIQUE: One view of the abdomen acquired. COMPARISON: None. FINDINGS: Surgical changes and devices: Cervical spinal fixation hardware Bowel: Bowel gas pattern is normal. Soft tissues: No suspicious abdominal calcifications. Visualized solid organ contours appear normal in size. Bones: No suspicious bony lesions. IMPRESSION: No evidence of bowel obstruction. No acute consolidation. Dictated by: Raffy Perrin M.D. on 08/02/2018 at 19:19 Approved by: Raffy Perrin M.D. on 08/02/2018 at 19:20
[2018-08-02 18:50] LABS: Bacteria Urine None Seen; RBC Urine None Seen (0-5/HPF)
[2018-08-02] MEDS: LORazepam 1 MG TABLET PO (18:59)
[2018-08-02 19:18] LABS: Add Manual Diff / Slide Review NO; Basophils Absolute Auto 100 /uL (0-100); Basophils Percent Auto 1.1 % (0-2); Eosinophils Absolute Auto 100 /uL (0-450); Eosinophils Percent Auto 2.2 % (2-4); Hematocrit 28.8 % (41-53); Hemoglobin 9.6 g/dL (13.5-17.5); Lymphocytes Absolute Auto 1500 /uL (1100-4500); Lymphocytes Percent Auto 29.4 % (25-40); Mean Corpuscular HGB Conc 33.5 % (30-36); Mean Corpuscular Hemoglobin 33.9 PG (26-34); Mean Corpuscular Volume 101.1 fL (80-100); Monocytes Absolute Auto 500 /uL (0-900); Monocytes Percent Auto 8.9 % (3-14); Neutrophils Absolute Auto 3000 /uL (1500-7000); Neutrophils Percent Auto 58.4 % (50-75); Platelet Count 650 X10^3/uL (150-400); Red Blood Cell Count 2.85 X10^6/uL (4.5-5.9); Red Cell Distribution Width 16.2 % (11.6-14.8); White Blood Cell Count 5.2 X10^3/uL (4.5-11.0)
[2018-08-02 19:21] LABS: Urine Amphetamines Negative (Negative); Urine Barbiturates Negative (Negative); Urine Benzodiazepines Positive (Negative); Urine Cocaine Negative (Negative); Urine MDMA Negative (Negative); Urine Methadone Negative (Negative); Urine Methamphetamines Negative (Negative); Urine Morphine/Opi cutoff 2000 Negative (Negative); Urine Oxycodone Negative (Negative); Urine Phencyclidine Negative (Negative); Urine Tetrahydrocannabinol Negative (Negative); Urine Tricyclic Antidepressant Negative (Negative)
[2018-08-02 19:57] LABS: Amorphous Sediment Urine 1+; Culture Indicated Urine Cult Not Indicated; Other Crystals Urine Other Crystals:; WBC Urine 0-1/HPF (0-5/HPF)
[2018-08-02 20:03] LABS: Alanine Aminotransferase 25 IU/L (21-72); Albumin Globulin Ratio 1.1 (1.0-2.8); Alkaline Phosphatase 86 U/L (38-126); Aspartate Aminotransferase 21 IU/L (17-59); BUN Creatinine Ratio 21.8 (6-22); Bilirubin Total 0.2 mg/dL (0.2-1.3); Blood Urea Nitrogen 24 mg/dL (9-20); Calcium 8.2 mg/dL (8.4-10.2); Carbon Dioxide 25 mmol/L (22-32); Chloride 105 mmol/L (98-107); Estimated Glomerular Filt Rate > 60.0 mL/min (>60); Globulin 2.7 g/dL (1.7-4.1); Glucose 107 mg/dL (80-110); HEMOLYSIS < 15 (0-50); Lipase 138 U/L (23-300); Potassium 3.9 mmol/L (3.4-5.1); Sodium 135 mmol/L (137-145); Total Protein 5.7 g/dL (6.3-8.2)
== END 2018-08-02 19:30 | disposition left against medical advice (07) ==
PROVIDERS: Emergency Provider Emergency Medicine; PCP Internal Medicine
DX: F41.9 Anxiety disorder, unspecified (principal); R10.9 Unspecified abdominal pain; R53.1 Weakness; G47.00 Insomnia, unspecified; R11.0 Nausea; R03.0 Elevated blood-pressure reading, without diagnosis of hypertension
CPT/HCPCS: 36591; 74018; 80053; 80305; 81003; 81015; 83690; 85025; 93005; 99282; 99285

== ENCOUNTER 2019-07-13 15:35 | Emergency (ER) | payer OTHER, MEDICAID, SELFPAY ==
[2019-07-13] VITALS (8 sets, daily range): BP systolic 122–201; BP diastolic 60–87; PULSE 83–98; RESP 18–45; TEMP 37.5–37.7; O2SAT 86–95; BMI 18.3
--- NOTE | 2019-07-13 15:42 | ED_ITS ---
HPI - General Adult General Chief complaint: Shortness of Breath/Dyspnea Stated complaint: SOB, Confused, R/O Covid Time Seen by Provider: 07/13/19 15:41 Source: EMS Mode of arrival: EMS Limitations: altered mental status History of Present Illness HPI narrative: 63-year-old male was brought in by EMS. Patient altered and unable to provide any HPI or review of systems. The HPI that is given here was provided by EMS which received information from the patient's roommate. It appears that over the past couple days patient has become more altered, having diarrhea, cough, no reported fevers, not feeling well, there is no reports of trauma. No reports of drug or alcohol use. After the patient became more alte red today the roommate called EMS. Upon their arrival they did find the patient altered and somewhat combative however was making purposeful movements. He was pulling on his mask in saying ?I am going to ?they did find the patient hypoxic to the high 80s. They put him on nasal cannula which brought his oxygen saturations to the low 90s. No fevers. IV was started. Was brought to the emergency department for evaluation. Related Data Home Medications Medication Instructions Recorded Confirmed sucralfate 1 g PO BID 04/28/18 02/23/19 buprenorphine-naloxone 0.5 film SUBLINGUAL [id number] 07/17/18 02/23/19 buspirone 7.5 mg PO TID 07/17/18 02/23/19 hydrocodone-acetaminophen 1 tab PO BID 07/17/18 02/23/19 hydroxyzine pamoate 50 mg PO TID 07/17/18 02/23/19 ibuprofen 600 mg PO TID 07/17/18 02/23/19 lisinopril 20 mg PO DAILY 07/17/18 02/23/19 omeprazole 40 mg PO DAILY 07/17/18 02/23/19 Previous Rx's Medication Instructions Recorded cephalexin [Keflex] 500 mg PO QID #40 cap 07/25/18 tamsulosin [Flomax] 0.4 mg PO DAILY #30 cap 07/25/18 Allergies Allergy/AdvReac Type Severity Reaction Status Date / Time acetaminophen [ACETAMINOPHEN] Allergy Mild ITCHING Verified 02/23/19 12:41 cortisone [CORTISONE] AdvReac Intermediate MADE ME Verified 02/23/19 12:41 VERY HOT AND MADE ME NUTS codeine [CODEINE] AdvReac Mild ITCHY AND Verified 02/23/19 12:41 DIFFICULTY SLEEPING Review of Systems Review of Systems Narrative: Review of systems provided by EMS ROS Unobtainable: Unobtainable due to mental status/LOC Constitutional Constitutional: Reports fever(s) Cardiovascular Cardiovascular: Reports dyspnea Respiratory Respiratory: Reports cough and Reports dyspnea Comments: Hypoxic Gastrointestinal Gastrointestinal: Reports diarrhea Integumentary/Breasts Skin/Breast: Denies rash Neurologic Neurologic: Reports behavioral changes and Reports confusion Comments: Altered mental status Psychiatric Psychiatric: Reports behavioral changes and Reports confusion Patient History Medical History Alcoholism (Chronic) Back pain (Chronic) Cervical spine disease (Chronic) Chronic pain syndrome (Chronic) GERD (gastroesophageal reflux disease) (Chronic) Surgical History History of knee surgery (Resolved) History of neck surgery (Resolved ~2008) History of spinal fusion (06/11/14) Status post discectomy (06/11/14) Social History Smoking Status: Current every day smoker alcohol intake: current additional social history: history of alcohol abuse and THC Smoking Status: Current every day smoker alcohol intake frequency: 3 or more drinks per day Substance Use Type: marijuana Exam Initial Vital Signs Initial Vital Signs: Vital Signs Pulse Rate 98 H 07/13/19 16:01 Respiratory Rate 25 H 07/13/19 16:01 Blood Pressure 201/87 H 07/13/19 16:01 Pulse Oximetry 91 07/13/19 16:01 Const General: No cooperative, diaphoretic and disheveled Limitations: altered mental status HENNH Head: normal to inspection and normocephalic Resp Effort & Inspection: no retractions and tachypneic Auscultation: clear to auscultation bilaterally Cardio Rate: regular rate Rhythm: regular rhythm Pulses: radial pulses present GI Inspection: non-distended Palpation: soft Skin Lesions: no lesions Rashes: no rashes Neuro General: awake and moves all extremities Cognition: abnormal cognition Speech: speech normal (Said ?I am going to ?) Extrem General: capillary refill normal and No edema Psych Appearance: disheveled Scores GCS Amelia coma scale eye opening: To sound Etters coma scale verbal response: Confused Amelia coma scale motor response: Localising Amelia coma scale total score: 12 Course Orders Ordered: ED Orders 07/13/19 15:40 C-Reactive Protein Quant Stat Complete Blood Count AUTO DIFF Stat Comprehensive Metabolic Panel Stat D Dimer Stat Ethanol (ETOH) Stat Ferritin Stat Lactate (Lactic Acid) Stat Lactate Dehydrogenase Stat NT-proBNP (BNP-Adult 18+) Stat Partial Thromboplastin Time Stat Procalcitonin Stat Prothrombin Time INR Stat Troponin & CK Cardiac Panel Stat Urine Drug Screen, Rapid Stat 07/13/19 15:42 GI Panel (Film Array) Stat 07/13/19 15:44 EKG-12 Lead Stat 07/13/19 15:46 CT head/brain wo con Stat 07/13/19 15:50 Urinalysis and Microscopic Stat Urine Culture Stat 07/13/19 16:05 Arterial Blood Gas Stat 07/13/19 16:10 XR chest 1V Stat 07/13/19 16:14 Ammonia (NH3) Stat Blood Culture Stat 07/13/19 16:30 CT chest wo con Stat 07/13/19 17:46 Arterial Blood Gas Stat Sodium Chloride (Normal Saline 0.9%) 1,000 mls @ 125 mls/hr IV CONT CARMELA Last Admin: 07/13/19 16:00 Dose: 125 mls/hr Documented by: LETY Discontinued Medications Furosemide (Lasix) 60 mg IV NOW ONE Stop: 07/13/19 16:37 Last Admin: 07/13/19 17:07 Dose: 60 mg Documented by: LETY Azithromycin 500 mg/ Dextrose 250 mls @ 250 mls/hr IV NOW ONE Stop: 07/13/19 16:22 Last Admin: 07/13/19 17:27 Dose: 250 mls/hr Documented by: LETY Ceftriaxone Sodium/Dextrose (Rocephin) 1 gm in 50 mls @ 100 mls/hr IV NOW ONE Stop: 07/13/19 17:09 Last Infusion: 07/13/19 17:27 Dose: 0 mls/hr Documented by: Admin: 07/13/19 17:07 Dose: 100 mls/hr Documented by: LETY Lorazepam (Ativan) 0.5 mg IV NOW ONE Stop: 07/13/19 17:00 Last Admin: 07/13/19 17:07 Dose: 0.5 mg Documented by: LETY Nitroglycerin (Nitro-Bid) 0.5 inch TOP NOW ONE Stop: 07/13/19 16:43 Last Admin: 07/13/19 17:10 Dose: 0.5 inch Documented by: LETY Vital Signs Vital signs: Vital Signs - 8 hr 07/13/19 16:01 07/13/19 18:35 Temperature 99.8 F H Pulse Rate 98 H 83 Respiratory Rate 25 H 28 H Blood Pressure 201/87 H Blood Pressure [Right Arm] 128/63 Pulse Oximetry 91 94 Medical Decision Making Medical Records Medical records reviewed: Yes I reviewed the patient's medical records. Lab Data Lab results reviewed: Yes I reviewed the patient's lab results. Result diagrams: 07/13/19 15:40 07/13/19 15:40 Labs: Lab Results 07/13/19 07/13/19 07/13/19 Range/Units 15:40 15:40 15:40 WBC 19.1 H (4.5-11.0) X10^3/uL RBC 4.25 L (4.5-5.9) X10^6/uL Hgb 14.5 (13.5-17.5) g/dL Hct 43.2 (41-53) % MCV 101.6 H (80-100) fL MCH 34.0 (26-34) PG MCHC 33.5 (30-36) % RDW 19.0 H (11.6-14.8) % Plt Count 400 (150-400) X10^3/uL Neut % (Auto) 89.9 H (50-75) % Lymph % (Auto) 6.3 L (25-40) % Payette % (Auto) 3.4 (3-14) % Eos % (Auto) 0.0 L (2-4) % Baso % (Auto) 0.4 (0-2) % Neut # (Auto) 27667 H (8633-3244) /uL Lymph # (Auto) 1200 (3885-1955) /uL Payette # (Auto) 600 (0-900) /uL Eos # (Auto) 0 (0-450) /uL Baso # (Auto) 100 (0-100) /uL PT 45.6 H (10.1-12.7) SECONDS INR 4.0 H (0.9-1.3) APTT 40 H (26.4-36.2) SECONDS D-Dimer 304 H (<230) ng/mL ABG pH (7.35-7.45) ABG pCO2 (35-45) mmHg ABG pO2 (80-100) mmHg ABG HCO3 (22-26) mmol/L ABG Total CO2 (21-31) mmol/L ABG O2 Saturation (95-100) % ABG Base Excess (-2-2) mmol/L FiO2 Sodium (137-145) mmol/L Potassium (3.4-5.1) mmol/L Chloride (98-107) mmol/L Carbon Dioxide (22-32) mmol/L BUN (9-20) mg/dL Creatinine (0.66-1.25) mg/dL Estimated GFR (>60) mL/min BUN/Creatinine Ratio (6-22) Glucose (80-110) mg/dL Lactate 3.7 H (0.7-2.1) mmol/L Calcium (8.4-10.2) mg/dL Ferritin (18-464) ng/mL Total Bilirubin (0.2-1.3) mg/dL AST (17-59) IU/L ALT (<50) IU/L Alkaline Phosphatase (38-126) U/L Ammonia (9-30) umol/L Lactate Dehydrogenase (313-618) U/L Total Creatine Kinase (55-170) U/L CK-MB (CK-2) (<2.37) ng/mL CK-MB (CK-2) Rel Index (1.5-5.0) % Troponin I (0.01-0.034) ng/mL C-Reactive Protein (<1.0) mg/dL NT-Pro-B Natriuret Pep (<125) pg/mL Total Protein (6.3-8.2) g/dL Albumin (3.5-5.0) g/dL Globulin (1.7-4.1) g/dL Albumin/Globulin Ratio (1.0-2.8) Procalcitonin (<0.5) ng/mL Urine Color Urine Appearance Urine pH (4.5-8.0) Ur Specific Simla (1.000-1.035) Urine Protein (Negative) Urine Glucose (UA) (Negative) g/dL Urine Ketones (NEGATIVE) Urine Occult Blood (Negative) Urine Nitrate (Negative) Urine Bilirubin (NEGATIVE) Urine Urobilinogen (0.2) E.U./dL Ur Leukocyte Esterase (NEGATIVE) Urine RBC (0-5/HPF) Urine WBC (0-5/HPF) Ur Squamous Epith Cells (0-5/HPF) Amorphous Sediment Urine Bacteria (None) Granular Casts (None) Urine Mucus (Negative) Ur Culture Indicated? U Opiates 300ng/mL cut (Negative) Ur Oxycodone Screen (Negative) Urine Methadone Screen (Negative) Ur Barbiturates Screen (Negative) U Tricyclic Antidepress (Negative) Ur Phencyclidine Scrn (Negative) Ur Amphetamines Screen (Negative) U Methamphetamines Scrn (Negative) Ur MDMA Scrn (Ecstasy) (Negative) U Benzodiazepines Scrn (Negative) Urine Cocaine Screen (Negative) U Marijuana (THC) Screen (Negative) Ethyl Alcohol ( - 10) mg/dL 07/13/19 07/13/19 07/13/19 Range/Units 15:40 15:40 15:40 WBC (4.5-11.0) X10^3/uL RBC (4.5-5.9) X10^6/uL Hgb (13.5-17.5) g/dL Hct (41-53) % MCV (80-100) fL MCH (26-34) PG MCHC (30-36) % RDW (11.6-14.8) % Plt Count (150-400) X10^3/uL Neut % (Auto) (50-75) % Lymph % (Auto) (25-40) % Payette % (Auto) (3-14) % Eos % (Auto) (2-4) % Baso % (Auto) (0-2) % Neut # (Auto) (2869-9224) /uL Lymph # (Auto) (1175-2465) /uL Payette # (Auto) (0-900) /uL Eos # (Auto) (0-450) /uL Baso # (Auto) (0-100) /uL PT (10.1-12.7) SECONDS INR (0.9-1.3) APTT (26.4-36.2) SECONDS D-Dimer (<230) ng/mL ABG pH (7.35-7.45) ABG pCO2 (35-45) mmHg ABG pO2 (80-100) mmHg ABG HCO3 (22-26) mmol/L ABG Total CO2 (21-31) mmol/L ABG O2 Saturation (95-100) % ABG Base Excess (-2-2) mmol/L FiO2 Sodium 136 L (137-145) mmol/L Potassium 4.3 (3.4-5.1) mmol/L Chloride 101 (98-107) mmol/L Carbon Dioxide 13 L (22-32) mmol/L BUN 50 H (9-20) mg/dL Creatinine 2.51 H (0.66-1.25) mg/dL Estimated GFR 26.3 L (>60) mL/min BUN/Creatinine Ratio 19.9 (6-22) Glucose 155 H (80-110) mg/dL Lactate (0.7-2.1) mmol/L Calcium 9.0 (8.4-10.2) mg/dL Ferritin 117 (18-464) ng/mL Total Bilirubin 1.0 (0.2-1.3) mg/dL AST 134 H (17-59) IU/L ALT 13 (<50) IU/L Alkaline Phosphatase 126 (38-126) U/L Ammonia (9-30) umol/L Lactate Dehydrogenase 2184 H (313-618) U/L Total Creatine Kinase 647 H (55-170) U/L CK-MB (CK-2) 19.70 H (<2.37) ng/mL CK-MB (CK-2) Rel Index 3.0 (1.5-5.0) % Troponin I 0.093 H (0.01-0.034) ng/mL C-Reactive Protein 8.9 H (<1.0) mg/dL NT-Pro-B Natriuret Pep 8720 H (<125) pg/mL Total Protein 8.4 H (6.3-8.2) g/dL Albumin 4.3 (3.5-5.0) g/dL Globulin 4.1 (1.7-4.1) g/dL Albumin/Globulin Ratio 1.0 (1.0-2.8) Procalcitonin 8.48 H (<0.5) ng/mL Urine Color Urine Appearance Urine pH (4.5-8.0) Ur Specific Simla (1.000-1.035) Urine Protein (Negative) Urine Glucose (UA) (Negative) g/dL Urine Ketones (NEGATIVE) Urine Occult Blood (Negative) Urine Nitrate (Negative) Urine Bilirubin (NEGATIVE) Urine Urobilinogen (0.2) E.U./dL Ur Leukocyte Esterase (NEGATIVE) Urine RBC (0-5/HPF) Urine WBC (0-5/HPF) Ur Squamous Epith Cells (0-5/HPF) Amorphous Sediment Urine Bacteria (None) Granular Casts (None) Urine Mucus (Negative) Ur Culture Indicated? U Opiates 300ng/mL cut Negative (Negative) Ur Oxycodone Screen Negative (Negative) Urine Methadone Screen Negative (Negative) Ur Barbiturates Screen Negative (Negative) U Tricyclic Antidepress Negative (Negative) Ur Phencyclidine Scrn Negative (Negative) Ur Amphetamines Screen Negative (Negative) U Methamphetamines Scrn Negative (Negative) Ur MDMA Scrn (Ecstasy) Negative (Negative) U Benzodiazepines Scrn Negative (Negative) Urine Cocaine Screen Negative (Negative) U Marijuana (THC) Screen Negative (Negative) Ethyl Alcohol < 10 ( - 10) mg/dL 07/13/19 07/13/19 07/13/19 Range/Units 15:50 16:05 16:14 WBC (4.5-11.0) X10^3/uL RBC (4.5-5.9) X10^6/uL Hgb (13.5-17.5) g/dL Hct (41-53) % MCV (80-100) fL MCH (26-34) PG MCHC (30-36) % RDW (11.6-14.8) % Plt Count (150-400) X10^3/uL Neut % (Auto) (50-75) % Lymph % (Auto) (25-40) % Payette % (Auto) (3-14) % Eos % (Auto) (2-4) % Baso % (Auto) (0-2) % Neut # (Auto) (1669-0771) /uL Lymph # (Auto) (6723-3848) /uL Payette # (Auto) (0-900) /uL Eos # (Auto) (0-450) /uL Baso # (Auto) (0-100) /uL PT (10.1-12.7) SECONDS INR (0.9-1.3) APTT (26.4-36.2) SECONDS D-Dimer (<230) ng/mL ABG pH 7.33 L (7.35-7.45) ABG pCO2 24.2 L* (35-45) mmHg ABG pO2 45 L* (80-100) mmHg ABG HCO3 13 L (22-26) mmol/L ABG Total CO2 13 L (21-31) mmol/L ABG O2 Saturation 79 L* (95-100) % ABG Base Excess -13.0 L (-2-2) mmol/L FiO2 100 Sodium (137-145) mmol/L Potassium (3.4-5.1) mmol/L Chloride (98-107) mmol/L Carbon Dioxide (22-32) mmol/L BUN (9-20) mg/dL Creatinine (0.66-1.25) mg/dL Estimated GFR (>60) mL/min BUN/Creatinine Ratio (6-22) Glucose (80-110) mg/dL Lactate (0.7-2.1) mmol/L Calcium (8.4-10.2) mg/dL Ferritin (18-464) ng/mL Total Bilirubin (0.2-1.3) mg/dL AST (17-59) IU/L ALT (<50) IU/L Alkaline Phosphatase (38-126) U/L Ammonia < 9 L (9-30) umol/L Lactate Dehydrogenase (313-618) U/L Total Creatine Kinase (55-170) U/L CK-MB (CK-2) (<2.37) ng/mL CK-MB (CK-2) Rel Index (1.5-5.0) % Troponin I (0.01-0.034) ng/mL C-Reactive Protein (<1.0) mg/dL NT-Pro-B Natriuret Pep (<125) pg/mL Total Protein (6.3-8.2) g/dL Albumin (3.5-5.0) g/dL Globulin (1.7-4.1) g/dL Albumin/Globulin Ratio (1.0-2.8) Procalcitonin (<0.5) ng/mL Urine Color Yellow Urine Appearance Clear Urine pH 5.0 (4.5-8.0) Ur Specific Simla 1.020 (1.000-1.035) Urine Protein 1+ H (Negative) Urine Glucose (UA) Negative (Negative) g/dL Urine Ketones Trace H (NEGATIVE) Urine Occult Blood 2+ H (Negative) Urine Nitrate Negative (Negative) Urine Bilirubin Negative (NEGATIVE) Urine Urobilinogen 0.2 (0.2) E.U./dL Ur Leukocyte Esterase Negative (NEGATIVE) Urine RBC 1-5/hpf (0-5/HPF) Urine WBC 1-5/hpf (0-5/HPF) Ur Squamous Epith Cells 0-1 /hpf (0-5/HPF) Amorphous Sediment 2+ Urine Bacteria Few (2-10) H (None) Granular Casts 1-5/lpf (None) Urine Mucus 2+ H (Negative) Ur Culture Indicated? Specimen cultured U Opiates 300ng/mL cut (Negative) Ur Oxycodone Screen (Negative) Urine Methadone Screen (Negative) Ur Barbiturates Screen (Negative) U Tricyclic Antidepress (Negative) Ur Phencyclidine Scrn (Negative) Ur Amphetamines Screen (Negative) U Methamphetamines Scrn (Negative) Ur MDMA Scrn (Ecstasy) (Negative) U Benzodiazepines Scrn (Negative) Urine Cocaine Screen (Negative) U Marijuana (THC) Screen (Negative) Ethyl Alcohol ( - 10) mg/dL 07/13/19 Range/Units 17:46 WBC (4.5-11.0) X10^3/uL RBC (4.5-5.9) X10^6/uL Hgb (13.5-17.5) g/dL Hct (41-53) % MCV (80-100) fL MCH (26-34) PG MCHC (30-36) % RDW (11.6-14.8) % Plt Count (150-400) X10^3/uL Neut % (Auto) (50-75) % Lymph % (Auto) (25-40) % Payette % (Auto) (3-14) % Eos % (Auto) (2-4) % Baso % (Auto) (0-2) % Neut # (Auto) (8060-0686) /uL Lymph # (Auto) (0644-7619) /uL Payette # (Auto) (0-900) /uL Eos # (Auto) (0-450) /uL Baso # (Auto) (0-100) /uL PT (10.1-12.7) SECONDS INR (0.9-1.3) APTT (26.4-36.2) SECONDS D-Dimer (<230) ng/mL ABG pH 7.33 L (7.35-7.45) ABG pCO2 19.7 L* (35-45) mmHg ABG pO2 95 (80-100) mmHg ABG HCO3 11 L (22-26) mmol/L ABG Total CO2 11 L (21-31) mmol/L ABG O2 Saturation 97 (95-100) % ABG Base Excess -15.0 L (-2-2) mmol/L FiO2 100 Sodium (137-145) mmol/L Potassium (3.4-5.1) mmol/L Chloride (98-107) mmol/L Carbon Dioxide (22-32) mmol/L BUN (9-20) mg/dL Creatinine (0.66-1.25) mg/dL Estimated GFR (>60) mL/min BUN/Creatinine Ratio (6-22) Glucose (80-110) mg/dL Lactate (0.7-2.1) mmol/L Calcium (8.4-10.2) mg/dL Ferritin (18-464) ng/mL Total Bilirubin (0.2-1.3) mg/dL AST (17-59) IU/L ALT (<50) IU/L Alkaline Phosphatase (38-126) U/L Ammonia (9-30) umol/L Lactate Dehydrogenase (313-618) U/L Total Creatine Kinase (55-170) U/L CK-MB (CK-2) (<2.37) ng/mL CK-MB (CK-2) Rel Index (1.5-5.0) % Troponin I (0.01-0.034) ng/mL C-Reactive Protein (<1.0) mg/dL NT-Pro-B Natriuret Pep (<125) pg/mL Total Protein (6.3-8.2) g/dL Albumin (3.5-5.0) g/dL Globulin (1.7-4.1) g/dL Albumin/Globulin Ratio (1.0-2.8) Procalcitonin (<0.5) ng/mL Urine Color Urine Appearance Urine pH (4.5-8.0) Ur Specific Simla (1.000-1.035) Urine Protein (Negative) Urine Glucose (UA) (Negative) g/dL Urine Ketones (NEGATIVE) Urine Occult Blood (Negative) Urine Nitrate (Negative) Urine Bilirubin (NEGATIVE) Urine Urobilinogen (0.2) E.U./dL Ur Leukocyte Esterase (NEGATIVE) Urine RBC (0-5/HPF) Urine WBC (0-5/HPF) Ur Squamous Epith Cells (0-5/HPF) Amorphous Sediment Urine Bacteria (None) Granular Casts (None) Urine Mucus (Negative) Ur Culture Indicated? U Opiates 300ng/mL cut (Negative) Ur Oxycodone Screen (Negative) Urine Methadone Screen (Negative) Ur Barbiturates Screen (Negative) U Tricyclic Antidepress (Negative) Ur Phencyclidine Scrn (Negative) Ur Amphetamines Screen (Negative) U Methamphetamines Scrn (Negative) Ur MDMA Scrn (Ecstasy) (Negative) U Benzodiazepines Scrn (Negative) Urine Cocaine Screen (Negative) U Marijuana (THC) Screen (Negative) Ethyl Alcohol ( - 10) mg/dL Imaging Data Chest x-ray: Radiologist's Impression: [place] [address] XRay Report Signed Patient: Kye Cardenas EMR#: [id number] : 8Acct:[id number] Age/Sex: 63 / MDate of Service: 07/13/19 Loc: ED Accession Number: [id number] Procedure: XR chest 1V Ordering Provider: Yuval Henderson D.O. PROCEDURE: XR CHEST 1V INDICATIONS: Short of breath TECHNIQUE: One view of the chest was acquired. COMPARISON: [facility], , CHEST 1 VIEW, 10/18/2016, 11:16. [facility], , XR CHEST 2V, 02/04/2018, 17:06. [facility], XR CHEST 1V, 02/07/2018, 8:27. FINDINGS: Surgical changes and devices: None. Lungs and pleura: On this semiupright portable chest examination, no large pneumothorax or large pleural effusions are seen. Several areas of poorly defined, interstitial infiltrates are seen involving both lungs, which are new compared to the prior plain film. Mediastinum: Mediastinal contours appear normal. Heart size is normal. Bones and chest wall: No suspicious bony lesions. Age-appropriate bony degene rative changes are seen. Overlying soft tissues appear unremarkable. IMPRESSION: Bilateral poorly defined, interstitial type infiltrates are seen. Please consider viral infiltrate. Differential diagnosis would include patchy pulmonary edema, however. Dictated by: Uriel lFoyd M.D. on 07/13/2019 at 15:36 Approved by: Uriel Floyd M.D. on 07/13/2019 at 15:37 CT scan - head: Radiologist's Impression: [address] [address] [address] Scan Report Signed Patient: Kye Cardenas EMR#: [id number] : 8Acct:[id number] Age/Sex: 63 / MDate of Service: 07/13/19 Loc: ED Accession Number: [id number] Procedure: CT head/brain wo con Ordering Provider: Yuval Henderson D.O. PROCEDURE: CT HEAD/BRAIN WO CON INDICATIONS: Altered mental status TECHNIQUE: Noncontrast 4.5 mm thick angled axial sections acquired from the foramen magnum to the vertex, with coronal and sagittal reformats. For radiation dose reduction, the following was used: automated exposure control, adjustment of mA and/or kV according to patient size. COMPARISON: [facility], CT, STROKE HEAD AND NECK ANGIO, 02/15/2012, 15:43. [facility], CT, HEAD WITHOUT CONTRAST, 06/01/2013, 12:02. [facility], CT, CT CHEST WO CON, 07/13/2019, 16:24. [facility], CR, XR CHEST 1V, 07/13/2019, 16:18. [facility], CT, CT HEAD/BRAIN WO CON, 02/06/2018, 21:37. FINDINGS: Image quality: This examination is limited by involuntary motion artifact. CSF spaces: Basal cisterns are patent. No extra-axial fluid collections. The ventricles are symmetric in size and shape. Brain: No intracranial bleeds or masses. There is cerebral volume loss for age, with resultant ventricular and sulcal prominence. There are periventricular and deep white matter chronic small vessel ischemic changes. There is intracranial internal carotid artery atherosclerosis. Skull and face: Calvarium and visualized facial bones appear intact, without suspicious lesions. Sinuses: Visualized sinuses and mastoids are clear. IMPRESSION: Limited study, without an acute intracranial abnormality identified. Dictated by: Uriel Floyd M.D. on 07/13/2019 at 16:04 Approved by: Uriel Floyd M.D. on 07/13/2019 at 16:05 CT scan - chest: Radiologist's Impression: [place] [address] CT Scan Report Signed Patient: Kye Cardenas EMR#: [id number] : 8Acct:[id number] Age/Sex: 63 / MDate of Service: 07/13/19 Loc: ED Accession Number: [id number] Procedure: CT chest wo con Ordering Provider: Yuval Henderson D.O. PROCEDURE: CT CHEST WO CON INDICATIONS: COVID TECHNIQUE: No IV contrast was given, secondary to renal insufficiency the time of this study. Noncontrast 5 mm thick sections acquired from the pulmonary apices to the posterior costophrenic angles. 1 mm lung window, 5 mm thick coronal and sagittal and 7 mm axial MIP reformats were then acquired. For radiation dose reduction, the following was used: automated exposure control, adjustment of mA and/or kV according to patient size. COMPARISON: None. FINDINGS: Image quality: This examination is limited by involuntary motion artifact. Lungs and pleura: Diffuse interstitial opacities are seen, with a groundglass quality. These are seen worst within the left upper lobe, yet also seen within the other lobes of the lung. Within both upper lobes, air bronchograms can be seen. No pneumothorax or pleural effusions are seen. The central airways are patent. Mediastinum: Heart size is normal. No pericardial effusion. No mediastinal adenopathy by size criteria. Thoracic aorta and central pulmonary arteries are normal in size. Esophagus is normal in caliber. There is a small hiatal hernia. Bones and chest wall: No suspicious bony lesions. No vertebral body compression fractures. No axillary or supraclavicular adenopathy by size criteria. Thyroid gland is small in size. Lower cervical spine fixation hardware is partially seen. Abdomen: Visualized upper abdominal solid organs and bowel loops appear normal in the absence of contrast. IMPRESSION: Limited study demonstrating diffuse interstitial opacities. These imaging findings are compatible with the given history of COVID infection. Differential diagnosis also includes other causes of atypical/viral infiltrate as well as an unusual appearance of pulmonary edema. Incidental note is made of: Cervical spine fixation hardware Small hiatal hernia Dictated by: Uriel Floyd M.D. on 07/13/2019 at 16:06 Approved by: Uriel Floyd M.D. on 07/13/2019 at 16:09 ECG Data Attestation: I personally reviewed and interpreted this ECG as follows: Prior ECG tracings: not available for review Interpretation: Sinus rhythm Rate 100 Significant motion artifact MDM Narrative Medical decision making narrative: Patient altered however is maintaining airway. Was hypoxic on room air this did improve initially with non-rebreather and then he was able to maintain oxygen saturations greater than 93% on non- rebreather and nasal cannula. Patient's chest x-ray is concerning for COVID in a sample was drawn. Patient also has a leukocytosis with a left shift and elevated procalcitonin which points towards acute acquired pneumonia. Was given Rocephin and azithromycin. Also has an elevated proBNP. No prior ones to compare to. Patient also hypertensive. Unsure potentially symptoms are CHF related. Patient was given Lasix and nitroglycerin. This did improve his blood pressure. Patient's head CT is unremarkable. Alcohol level negative. UDS negative. Ammonia level negative. Was much more calm after just 1.5 mg of Ativan. Potentially having alcohol withdrawal or even opioid withdrawal as potential cause of his symptoms as well. Initially discuss the case with Dr. Diaz with Internal Medicine here at the hospital who recommended I contact facility that has cardiology and pulmonology/intensive care medicine. I did discuss the case with Dr. Quintana with pulmonology/critical care at [facility] who agreed with holding off on intubation given his improvement in ABG on our current oxygen regiment. I then discussed the case with with Internal Medicine who accepts the patient in transport. Discharge Plan Departure Patient Disposition: [facility] Clinical Impression: Altered mental status, Acute respiratory distress, Hypoxia, Acute kidney injury, Pneumonia, Suspected COVID-19 virus infection Prescriptions: No Action sucralfate 1 gram tablet 1 g PO BID RF: 0 hydrocodone-acetaminophen 5-325 mg tablet 1 tab PO BID RF: 0 hydroxyzine pamoate 50 mg capsule 50 mg PO TID RF: 0 omeprazole 40 mg capsule,delayed release(DR/EC) 40 mg PO DAILY RF: 0 buspirone 7.5 mg tablet 7.5 mg PO TID RF: 0 ibuprofen 600 mg tablet 600 mg PO TID RF: 0 buprenorphine-naloxone 8-2 mg film 0.5 film Sublingual DAILYX7 RF: 0 lisinopril 20 mg Tablet 20 mg PO DAILY RF: 0 cephalexin [Keflex] 500 mg capsule 500 mg PO QID Qty: 40 RF: 0 tamsulosin [Flomax] 0.4 mg capsule 0.4 mg PO DAILY Qty: 30 RF: 0 Referrals: Roby Ricks MD [Primary Care Provider] -
--- NOTE | 2019-07-13 15:46 | DI.CT.S_ITS ---
PROCEDURE: CT HEAD/BRAIN WO CON INDICATIONS: Altered mental status TECHNIQUE: Noncontrast 4.5 mm thick angled axial sections acquired from the foramen magnum to the vertex, with coronal and sagittal reformats. For radiation dose reduction, the following was used: automated exposure control, adjustment of mA and/or kV according to patient size. COMPARISON: Located Within [facility], CT, STROKE HEAD AND NECK ANGIO, 02/15/2012, 15:43. Located Within [facility], CT, HEAD WITHOUT CONTRAST, 06/01/2013, 12:02. Located Within [facility], CT, CT CHEST WO CON, 07/13/2019, 16:24. Located Within [facility], CR, XR CHEST 1V, 07/13/2019, 16:18. Located Within [facility], CT, CT HEAD/BRAIN WO CON, 02/06/2018, 21:37. FINDINGS: Image quality: This examination is limited by involuntary motion artifact. CSF spaces: Basal cisterns are patent. No extra-axial fluid collections. The ventricles are symmetric in size and shape. Brain: No intracranial bleeds or masses. There is cerebral volume loss for age, with resultant ventricular and sulcal prominence. There are periventricular and deep white matter chronic small vessel ischemic changes. There is intracranial internal carotid artery atherosclerosis. Skull and face: Calvarium and visualized facial bones appear intact, without suspicious lesions. Sinuses: Visualized sinuses and mastoids are clear. IMPRESSION: Limited study, without an acute intracranial abnormality identified. Dictated by: Uriel Floyd M.D. on 07/13/2019 at 16:04 Approved by: Uriel Floyd M.D. on 07/13/2019 at 16:05
[2019-07-13] MEDS: SODIUM CHLORIDE 0.9% 1,000 ML 125 ML IV (16:00)
[2019-07-13 16:03] LABS: Add Manual Diff / Slide Review NO; Basophils Absolute Auto 100 /uL (0-100); Basophils Percent Auto 0.4 % (0-2); Eosinophils Absolute Auto 0 /uL (0-450); Hematocrit 43.2 % (41-53); Hemoglobin 14.5 g/dL (13.5-17.5); Lymphocytes Absolute Auto 1200 /uL (1100-4500); Lymphocytes Percent Auto 6.3 % (25-40); Mean Corpuscular HGB Conc 33.5 % (30-36); Mean Corpuscular Volume 101.6 fL (80-100); Monocytes Absolute Auto 600 /uL (0-900); Monocytes Percent Auto 3.4 % (3-14); Neutrophils Absolute Auto 17200 /uL (1500-7000); Neutrophils Percent Auto 89.9 % (50-75); Platelet Count 400 X10^3/uL (150-400); Red Blood Cell Count 4.25 X10^6/uL (4.5-5.9); White Blood Cell Count 19.1 X10^3/uL (4.5-11.0)
--- NOTE | 2019-07-13 16:10 | DI.RAD.S_ITS ---
PROCEDURE: XR CHEST 1V INDICATIONS: Short of breath TECHNIQUE: One view of the chest was acquired. COMPARISON: [facility], , CHEST 1 VIEW, 10/18/2016, 11:16. [facility], CR, XR CHEST 2V, 02/04/2018, 17:06. [facility], CR, XR CHEST 1V, 02/07/2018, 8:27. FINDINGS: Surgical changes and devices: None. Lungs and pleura: On this semiupright portable chest examination, no large pneumothorax or large pleural effusions are seen. Several areas of poorly defined, interstitial infiltrates are seen involving both lungs, which are new compared to the prior plain film. Mediastinum: Mediastinal contours appear normal. Heart size is normal. Bones and chest wall: No suspicious bony lesions. Age-appropriate bony degenerative changes are seen. Overlying soft tissues appear unremarkable. IMPRESSION: Bilateral poorly defined, interstitial type infiltrates are seen. Please consider viral infiltrate. Differential diagnosis would include patchy pulmonary edema, however. Dictated by: Uriel Floyd M.D. on 07/13/2019 at 15:36 Approved by: Uriel Floyd M.D. on 07/13/2019 at 15:37
[2019-07-13 16:14] LABS: Prothrombin Time 45.6 SECONDS (10.1-12.7)
[2019-07-13 16:15] LABS: HCO3 ABG 13 mmol/L (22-26); PCO2 ABG 24.2 mmHg (35-45); PO2 ABG 45 mmHg (80-100); pH ABG 7.33 (7.35-7.45)
[2019-07-13 16:16] LABS: Oxygen Saturation ABG 79 % (95-100); TCO2 ABG 13 mmol/L (21-31)
[2019-07-13 16:17] LABS: D Dimer 304 ng/mL (<230); Lactate (Lactic Acid) 3.7 mmol/L (0.7-2.1); PTT Partial Thromboplastin Tim 40 SECONDS (26.4-36.2)
[2019-07-13 16:17] LABS: Fractionated Inspired Oxygen 100
[2019-07-13 16:20] LABS: Alanine Aminotransferase 13 IU/L (<50); Albumin 4.3 g/dL (3.5-5.0); Alkaline Phosphatase 126 U/L (38-126); Aspartate Aminotransferase 134 IU/L (17-59); BUN Creatinine Ratio 19.9 (6-22); Blood Urea Nitrogen 50 mg/dL (9-20); C-Reactive Protein Quant 8.9 mg/dL (<1.0); Carbon Dioxide 13 mmol/L (22-32); Chloride 101 mmol/L (98-107); Creatine Kinase 647 U/L (55-170); Estimated Glomerular Filt Rate 26.3 mL/min (>60); Ethanol (ETOH) < 10 mg/dL; Globulin 4.1 g/dL (1.7-4.1); Glucose 155 mg/dL (80-110); HEMOLYSIS < 15 (0-50); Potassium 4.3 mmol/L (3.4-5.1); Sodium 136 mmol/L (137-145); Total Protein 8.4 g/dL (6.3-8.2)
[2019-07-13 16:26] LABS: Lactate Dehydrogenase 2184 U/L (313-618)
[2019-07-13 16:30] LABS: NT-proBNP (BNP-Adult 18+) 8720 pg/mL (<125); Troponin I 0.093 ng/mL (0.01-0.034)
--- NOTE | 2019-07-13 16:30 | DI.CT.S_ITS ---
PROCEDURE: CT CHEST WO CON INDICATIONS: COVID TECHNIQUE: No IV contrast was given, secondary to renal insufficiency the time of this study. Noncontrast 5 mm thick sections acquired from the pulmonary apices to the posterior costophrenic angles. 1 mm lung window, 5 mm thick coronal and sagittal and 7 mm axial MIP reformats were then acquired. For radiation dose reduction, the following was used: automated exposure control, adjustment of mA and/or kV according to patient size. COMPARISON: None. FINDINGS: Image quality: This examination is limited by involuntary motion artifact. Lungs and pleura: Diffuse interstitial opacities are seen, with a groundglass quality. These are seen worst within the left upper lobe, yet also seen within the other lobes of the lung. Within both upper lobes, air bronchograms can be seen. No pneumothorax or pleural effusions are seen. The central airways are patent. Mediastinum: Heart size is normal. No pericardial effusion. No mediastinal adenopathy by size criteria. Thoracic aorta and central pulmonary arteries are normal in size. Esophagus is normal in caliber. There is a small hiatal hernia. Bones and chest wall: No suspicious bony lesions. No vertebral body compression fractures. No axillary or supraclavicular adenopathy by size criteria. Thyroid gland is small in size. Lower cervical spine fixation hardware is partially seen. Abdomen: Visualized upper abdominal solid organs and bowel loops appear normal in the absence of contrast. IMPRESSION: Limited study demonstrating diffuse interstitial opacities. These imaging findings are compatible with the given history of COVID infection. Differential diagnosis also includes other causes of atypical/viral infiltrate as well as an unusual appearance of pulmonary edema. Incidental note is made of: Cervical spine fixation hardware Small hiatal hernia Dictated by: Uriel Floyd M.D. on 07/13/2019 at 16:06 Approved by: Uriel Floyd M.D. on 07/13/2019 at 16:09
[2019-07-13 16:33] LABS: Procalcitonin 8.48 ng/mL (<0.5)
[2019-07-13 16:40] LABS: Appearance Urine UA CLEAR; Bilirubin Urine UA NEGATIVE (NEGATIVE); Color Urine UA YELLOW; Glucose Urine UA NEGATIVE (Negative); Ketones Urine UA TRACE (NEGATIVE); Leukocyte Esterase Urine UA NEGATIVE (NEGATIVE); Nitrite Urine UA NEGATIVE (Negative); Occult Blood Urine UA 2+ (Negative); Protein Urine UA 1+ (Negative); Urobilinogen Urine UA 0.2 E.U./dL (0.2)
[2019-07-13 16:41] LABS: Ammonia (NH3) < 9 umol/L (9-30)
[2019-07-13 16:44] LABS: UR Morphine/Opiate cutoff 300 Negative (Negative); Ur Creatinine Normal (Normal); Ur Specific Gravity Normal (Normal); Urine Amphetamines Negative (Negative); Urine Barbiturates Negative (Negative); Urine Benzodiazepines Negative (Negative); Urine Cocaine Negative (Negative); Urine MDMA Negative (Negative); Urine Methadone Negative (Negative); Urine Methamphetamines Negative (Negative); Urine Oxycodone Negative (Negative); Urine Phencyclidine Negative (Negative); Urine Tetrahydrocannabinol Negative (Negative); Urine Tricyclic Antidepressant Negative (Negative); Urine pH Normal (Normal)
[2019-07-13 16:47] LABS: Amorphous Sediment Urine 2+; Bacteria Urine Few (2-10); Mucus Urine 2+ (Negative); RBC Urine 1-5/HPF (0-5/HPF); Squamous Epithelial Cell Urine 0-1 /HPF (0-5/HPF); WBC Urine 1-5/HPF (0-5/HPF)
[2019-07-13 16:48] LABS: Culture Indicated Urine Specimen Cultured; Granular Casts Urine 1-5/LPF
[2019-07-13 16:53] LABS: Ferritin 117 ng/mL (18-464)
--- NOTE | 2019-07-13 17:00 | PC.NURSE ---
Spoke to TAN Amado. Expressed concern over patients breathing pattern and oxygenation. Dr Henderson made aware. Order for repeat ABG.
[2019-07-13] MEDS: FUROSEMIDE 100 MG/10 ML VIAL 60 MG IV (17:07)
[2019-07-13] MEDS: LORazepam 2 MG/ML INJ 0.5 MG IV (17:07)
[2019-07-13] MEDS: CEFTRIAXONE 1 GM/50 ML FROZ.PIGGY IV (17:07)
[2019-07-13] MEDS: NITROGLYCERIN OINT 1 INCH/GM OINT...G. 0.5 INCH TOP (17:10)
[2019-07-13] MEDS: AZITHROMYCIN 500 MG in DEXTROSE 5% IN WATER 250 ML IV (17:27)
[2019-07-13 17:58] LABS: Reflexed Lactate in 2 Hours Y
[2019-07-13 18:00] LABS: HCO3 ABG 11 mmol/L (22-26); Oxygen Saturation ABG 97 % (95-100); PCO2 ABG 19.7 mmHg (35-45); PO2 ABG 95 mmHg (80-100); TCO2 ABG 11 mmol/L (21-31); pH ABG 7.33 (7.35-7.45)
[2019-07-13 18:01] LABS: Fractionated Inspired Oxygen 100
[2019-07-13 18:45] LABS: Lactate 2HR (Lactic Acid Rflx) 2.8 mmol/L (0.7-2.1)
--- NOTE | 2019-07-13 19:27 | PC.NURSE ---
1700 Provider was notified of patient condition via insulation cupola charger while this RN was in Isolation.
--- NOTE | 2019-07-13 19:30 | PC.NURSE ---
Notified provider Timo Brown pt sats on 25 LPM at 88% and pt grunting to breath. Provider stated it was ok. No new orders.
--- NOTE | 2019-07-13 19:32 | PC.NURSE ---
1740, stagecraft professor Aurelia notified this RN that provider was notified with regards to patient, Provider was not present to evaluate patient, stagecraft professor stated new order was received, This RN stated to Charge, I would like Dr Henderson present to re-evaluate patient and was told he was notified.
[2019-07-13] MEDS: ROCURONIUM 50 MG/5 ML INJ 100 MG IV (20:24)
--- NOTE | 2019-07-13 21:38 | PC.NURSE ---
[address] Brown regarding patient deterioration when EMS arrived. Decision to intubate patient made, 2020 150mg ketamine was given to patient IV by Aurelia MADDOX, assisted by Mehrdad from [facility] and transport Anita MADDOX from [facility] at bedside. 2022 100mg FIGUEROA given IV push and 8.[address] Brown, during vent attachment asystole was noted at 2024. Resumption of normal rhythm did not occur and TOD called at 2030.
--- NOTE | 2019-07-13 21:44 | PC.NURSE ---
Notified next of kin, Ernie who is patients roommate. Was told pt has a sister in [place] but name is not known. Ernie notified of possible coronavirus exposure and told to be seen if symptoms noted.
[2019-07-14 22:53] LABS: COVID19 Sendout Not Detected (Not Detected)
== END 2019-07-13 22:55 | disposition expired ==
PROVIDERS: Emergency Medicine; Emergency Provider Emergency Medicine; PCP Internal Medicine
DX: R41.82 Altered mental status, unspecified (principal); J80 Acute respiratory distress syndrome; N17.9 Acute kidney failure, unspecified; J18.9 Pneumonia, unspecified organism; R68.89 Other general symptoms and signs
CPT/HCPCS: 36415; 36600; 51701; 70450; 71045; 71250; 80053; 80305; 80320; 81001; 82140; 82550; 82553; 82728; 82805; 83605; 83615; 83880; 84145; 84484; 85025; 85379; 85610; 85730; 86140; 87040; 87086; 87635; 93005; 96365; 96367; 96375; 99285; 99291; 99292; J1940; J2060